=== PATIENT | male | born 1965 | race Caucasian/White ===

== ENCOUNTER 2016-06-11 13:08 | Inpatient (IN) | payer OTHER ==
[~2016-06-11] VITALS: Ht 188 cm; Wt 127.0 kg
[2016-06-11] MEDS ORDERED: METF1000 PO (13:46)
[2016-06-11] MEDS ORDERED: FENO200C6 PO (13:46)
--- NOTE | 2016-06-11 14:26 | DIAGNOSTIC IMAGING REPORT ---
LEFT ANKLE 3 VIEWS CLINICAL HISTORY: Left ankle injury. FINDINGS: 3 views of the left ankle are obtained. No prior studies are available for comparison at the time of dictation. The skeletal structures are well mineralized. There is a comminuted and distracted spiral fracture through the mid to distal tibial shaft. There is at least 7 mm of lateral distraction and 5 mm of anterior distraction of the distal fragments. The distal fibula appears intact. The ankle mortise is preserved. There is soft tissue edema present around the distal calf and the ankle. IMPRESSION: There is a comminuted and distracted spiral fracture through the mid to distal shaft of the left tibia as above. Electronically signed by: Irwin Abraham M.D. 06/11/2016 2:25 PM Dictated Date/Time: 06/11/2016 2:22 PM
--- NOTE | 2016-06-11 14:31 | DIAGNOSTIC IMAGING REPORT ---
LEFT TIBIA/FIBULA 2 VIEWS ROUTINE CLINICAL HISTORY: fall trauma. Pain. COMPARISON: None. DISCUSSION: Blank slightly distracted fracture of the mid to distal tibial shaft. Slight anterior angulation. Fracture proximal fibular head. Moderate soft tissue edema IMPRESSION: 1. Oblique mildly angled and distracted fracture mid to distal tibial shaft. 2. Nondisplaced fracture proximal fibula Electronically signed by: Primo Diallo M.D. 06/11/2016 2:30 PM Dictated Date/Time: 06/11/2016 2:29 PM
--- NOTE | 2016-06-11 15:44 | EMERGENCY ROOM VISIT NOTE ---
ED Visit Note First contact with patient: 13:21 CHIEF COMPLAINT: Left lower leg injury today HISTORY OF PRESENT ILLNESS: Patient is a 51-year-old white male brought to the emergency department by ambulance for evaluation of a left lower leg injury that occurred at home about 2 hours ago. Patient states that he stood up, and was walking when his left knee gave out on him, causing him to fall and roll his left ankle. He states that he felt and heard a popping sound, he describes it as sounding like a "baseball hitting off of the bat." He did not attempt to ambulate. He notes discomfort that is a 5/10. He reports significant neuropathy in the lower extremities. He denies any other injuries related to the fall. He has a history of a partial left great toe amputation due to osteomyelitis performed at [facility]. REVIEW OF SYSTEMS: Review of systems as per HPI. All other systems reviewed were negative. At least 6 systems reviewed. PMH: Electronic medical records are reviewed and summarized as above/below. See Problem List. SOCIAL HISTORY: Patient lives at home with his daughter. Smoker. Unemployed. PHYSICAL EXAM: Vital Signs: Reviewed Nurse's notes. CONSTITUTIONAL: Patient is a well appearing 51-year-old white male who is awake and alert and laying on the gurney in no acute distress. HEART: Regular rate and rhythm without murmurs, ectopy, gallops, or rubs. LUNGS: Clear to auscultation and breath sounds equal, no wheezes, rales, or rhonchi. MUSCULOSKELETAL: Examination of the left lower extremity show external rotation of the left lower leg. Skin is intact. He has tenderness and deformity palpable in the mid to distal tibia, over the tibial spine. There is no discomfort over the proximal fibular head. No pain over the medial or the lateral malleolus. The lower extremity is unstable. Postsurgical deformity noted at the left great toe. Distal pulses are easily palpable. He has diminished sensation over the plantar aspect of the left foot, can feel light touch over the dorsum of the foot and the lower left leg. EMERGENCY DEPARTMENT COURSE: The patient was seen and evaluated as above. He declined any medication needs in the emergency department. Left ankle and tib- fib x-rays were obtained. Findings are consistent with a oblique fracture through the mid to distal tibial shaft with associated fracture of the proximal fibular head. Consultation was placed with [facility], patient was reviewed with Freedom Del Cid PA-C and Dr. Marcus. He will be admitted to the hospital for surgical management. Please refer to their admission H&P for further information. The patient was placed in a long leg posterior and short leg sugar tong splint. He remained neurovascularly intact while in the emergency department. Patient's presentation is consistent with a fracture of the left tibial shaft. The injury is closed and there is no findings consistent with compartment syndrome. LEFT TIBIA/FIBULA 2 VIEWS ROUTINE CLINICAL HISTORY: fall trauma. Pain. COMPARISON: None. DISCUSSION: Blank slightly distracted fracture of the mid to distal tibial shaft. Slight anterior angulation. Fracture proximal fibular head. Moderate soft tissue edema IMPRESSION: 1. Oblique mildly angled and distracted fracture mid to distal tibial shaft. 2. Nondisplaced fracture proximal fibula LEFT ANKLE 3 VIEWS CLINICAL HISTORY: Left ankle injury. FINDINGS: 3 views of the left ankle are obtained. No prior studies are available for comparison at the time of dictation. The skeletal structures are well mineralized. There is a comminuted and distracted spiral fracture through the mid to distal tibial shaft. There is at least 7 mm of lateral distraction and 5 mm of anterior distraction of the distal fragments. The distal fibula appears intact. The ankle mortise is preserved. There is soft tissue edema present around the distal calf and the ankle. IMPRESSION: There is a comminuted and distracted spiral fracture through the mid to distal shaft of the left tibia as above. Problem List Medical Problems: (1) Depression Status: Chronic (2) Diabetes Status: Chronic (3) Diabetic peripheral neuropathy Status: Chronic (4) Dyslipidemia Status: Chronic (5) Hypertension Status: Chronic Surgical Problems: (1) Toe amputation status Status: Resolved Current/Historical Medications Scheduled Fenofibrate (Tricor), 200 MG PO DAILY Metformin Hcl (Glucophage), 1,000 MG PO BIDM Allergies Coded Allergies: No Known Allergies (Verified , *, 05/23/08) Vital Signs Date Time Temp Pulse Resp B/P Pulse Ox O2 Delivery O2 Flow Rate FiO2 06/11/16 16:30 95 16 121/83 95 Room Air 06/11/16 14:48 82 16 105/64 95 Room Air 06/11/16 13:41 88 17 115/80 94 Room Air 06/11/16 13:20 36.9 92 18 136/87 96 Room Air Laboratory Results 06/11/16 16:00 Test 06/11/16 16:00 Red Blood Count 5.44 M/uL (4.7-6.1) Mean Corpuscular Volume 80.0 fL (80-100) Mean Corpuscular Hemoglobin 28.9 pg (25-34) Mean Corpuscular Hemoglobin Concent 36.1 g/dl (32-36) RDW Standard Deviation 37.0 fL (36.4-46.3) RDW Coefficient of Variation 12.8 % (11.5-14.5) Mean Platelet Volume 10.8 fL (7.4-10.4) Prothrombin Time 9.9 SECONDS (9.0-12.0) Prothromb Time International Ratio 0.9 (0.9-1.1) Departure Information Impression Primary Impression: Fracture of tibial shaft, left, closed Additional Impression: Fracture of head of left fibula Dispostion Being Evaluated By Surgeon Gamaliel Bhatti M.D. (PCP) Patient Instructions [facility] Problem Qualifiers Primary Impression: Fracture of tibial shaft, left, closed Encounter type: initial encounter Fracture morphology: oblique Fracture alignment: displaced Qualified Codes: S82.232A - Displaced oblique fracture of shaft of left tibia, initial encounter for closed fracture Additional Impression: Fracture of head of left fibula Encounter type: initial encounter Fracture type: closed Qualified Codes: S82.832A - Other fracture of upper and lower end of left fibula, initial encounter for closed fracture
[2016-06-11] MEDS ORDERED: MoRPHine SULFATE 2 MG/ML CARP IV PRN (15:45)
[2016-06-11] MEDS ORDERED: DiphenhydrAMINE HCL 50 MG/ML VIAL IV PRN (15:45)
[2016-06-11] MEDS ORDERED: ONDANSETRON INJ 2 MG/ML 2 ML VIAL IV PRN (15:45)
[2016-06-11] MEDS ORDERED: MoRPHine SULFATE 4 MG/ML 1 ML CARP\\VIAL IV PRN (16:15)
[2016-06-11] MEDS ORDERED: MoRPHine SULFATE 10 MG/ML CARP/VIAL IV PRN (16:15)
[2016-06-11 16:26] LABS: HEMATOCRIT 43.5 % (42-52); MEAN CORPUSCULAR HEMOGLOBIN 28.9 pg (25-34); MEAN CORPUSCULAR HGB CONC 36.1 g/dl (32-36); MEAN PLATELET VOLUME 10.8 fL (7.4-10.4); PLATELET COUNT 211 K/uL (130-400); RED BLOOD COUNT 5.44 M/uL (4.7-6.1); WHITE BLOOD COUNT 7.87 K/uL (4.8-10.8)
[2016-06-11 16:30] VITALS: BP 114/74; PULSE 91; TEMP 37.1; O2SAT 93; BMI 35.9
--- NOTE | 2016-06-11 16:30 | HISTORY & PHYSICAL EXAMINATION ---
DATE OF ADMISSION: 06/11/2016 REASON FOR ADMISSION: Left tib-fib fracture. HISTORY OF PRESENT ILLNESS: The patient is a 51-year-old white male who states that he was just walking today and ended up slipping on the ice and fell down. He states that he crawled inside his house and tried walking on the leg again wher at that point, he had heard a loud crack and had immediate pain in his left lower extremity and was unable to ambulate. He came to the emergency room where he was seen by the staff. X-rays were taken and found that he had a proximal fibular fracture as well as a distal third tibia fracture. X-rays were reviewed by Dr. Marcus and it was felt that since the patient would not be a good candidate for doing this at a later date it was felt he should be admitted at this time. Posterior splint was applied by the Emergency Room and he is now being admitted for further orthopedic care. The patient denies any loss of consciousness during the fall. Denies hitting his head and had no shortness of breath or chest pain prior to or after the fall. PAST MEDICAL HISTORY: Diabetes mellitus, initially listed has type 2; however he is insulin-dependent at this point in time. He states that it is not well controlled. His daughter is present and she states that he is mostly taking short acting insulin (Humalog) and does not have any long-acting insulin (Levimir) and either due to lack of money on their part versus the father's inability to take his insulin at regular times. He has also history of pancreatitis, hypertriglyceridemia. He states he also has history of hypertension. He denies tuberculosis, hepatitis, COPD. PAST SURGICAL HISTORY: He has had partial amputation of his left great toe in the past. Otherwise, he states he has not had any surgeries in the past. FAMILY HISTORY: There is a strong history of heart disease and a brother of his just recently passed in the last year or so due to [place]. His mother has a history of diabetes mellitus. Mother also has a history of CAD I believe with multiple stenting. SOCIAL HISTORY: The patient is a smoker and states that he started smoking at the age of 14, however he has increased his amount of smoking over recent years and states now he does approximately 2-pack a day. He does not use alcohol and he is , which his in 2007 from cancer. He has 2 children. He is layed off currently. 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 MEDICATIONS: Tricor 200 mg p.o. daily, metformin 1000 mg p.o. b.i.d. Humalog insulin and Levemir insulin. Dosages unknown. ALLERGIES: NKDA. REVIEW OF SYSTEMS: The patient denies any recent fevers, chills, night sweats, unexplained weight loss or weight gain. No flu or cold-like symptoms. No increased cough or sputum production. No increased shortness of breath. He denies any shortness of breath on exertion or at rest. He denies hemoptysis. He denies any history of chest pain, chest pressure or irregular heartbeat. No recent abdominal pain. No unusual nausea, vomiting or diarrhea. No hematemesis or melena or hematochezia. No history of hematuria, pyuria, dysuria or renal calculi. No history of CVA or TIA. No history of seizure disorder. PHYSICAL EXAMINATION: VITAL SIGNS: Most recently show a pulse 82, respirations 16, BP 105/64, pulse ox is 95 on room air. GENERAL: The patient is a mildly obese white male who is alert and oriented x3 and in no acute distress, pleasant and cooperative. SKIN: Warm and dry. Turgor is good. HEAD, EYES, EARS, NOSE, AND THROAT: Head is normocephalic, atraumatic. There is no scleral icterus or injection. Nasal airway is patent. Oral mucosa is pink and moist. NECK: Supple and nontender. HEART: Regular rate and rhythm without murmurs, gallops or splits. LUNGS: CTA without rales, rhonchi or wheezes. ABDOMEN: Soft, obese and nontender. Bowel sounds are present x4. GENITALIA AND RECTAL: Not performed at this time. EXTREMITIES: On examination of the patient's left lower extremity. There is no open fracture noted of the left tibia. He has some mild tenderness over the fibular head on the lateral aspect of the knee; however, has no knee pain in general. Limited range of motion at this time of the left knee only because of his distal third fracture of the tibia. He has some pitting edema over the left lower extremity that is greater on the left than the right. Pulses are difficult to appreciate the dorsalis pedis at this time, but his foot is pink and warm to touch. His sensation is blunted and he states which is normal for him; however, he has good sensation in along the inner portion of the foot over the arch. Other than that over the plantar surface of the toes he has decreased sensation. Capillary refill is less than 2 seconds. Right lower extremity does show some mild edema compared to the left. He does have some multiple bruising noted over the left tibia. Upper extremities are essentially benign at this time. He has no pain in the shoulders, elbows or wrists and has good range of motion of all including hand and fingers. He denies any pain on palpation of his anterior chest. No pain in the neck on range of motion anterior to posterior and has good range of motion of his neck. Denies back pain at this time of the thoracic and lumbar spine. NEUROLOGICAL: Noted neuropathy of his feet at this time. Otherwise, cranial nerves II-XII are intact. DIAGNOSIS: Left proximal fibular head fracture with a left distal third tibia fracture. 2. DM Type 2 with Insulin use 3. Diabetic Neuropathy of the LE's 4. H/O Hypertriglyceridemia 5. H/O Pancreatitis 6. ? of HTN PLAN: The patient will be admitted under orthopedics and we will consult [facility] service and have their hospitalist see the patient for preoperative medical clearance and postoperative medical management. Plans will be for IM rodding of his left tibia fracture. He will be placed in a posterior splint and then the left lower extremity will be placed on 2 pillows to help decrease his swelling. As long as the patient is medically cleared for surgery, plans will be for IM nailing of the left tibia tomorrow. TRIP
[2016-06-11 16:33] LABS: INR 0.9 (0.9-1.1); PROTHROMBIN TIME (PATIENT) 9.9 SECONDS (9.0-12.0)
[2016-06-11] MEDS ORDERED: GLUCAGON FOR INJ 1 MG VIAL SQ PRN (16:45)
[2016-06-11] MEDS ORDERED: GLUCOSE 40% GEL 15 GM TUBE PO PRN (16:45)
[2016-06-11] MEDS ORDERED: DEXTROSE 50% 50 ML SYR IV PRN (16:45)
[2016-06-11] MEDS ORDERED: GLUCOSE 10 TABS/TUBE PO PRN (16:45)
--- NOTE | 2016-06-11 16:47 | DIAGNOSTIC IMAGING REPORT ---
CHEST 2 VIEWS ROUTINE CLINICAL HISTORY: Preoperative evaluation. COMPARISON STUDY: No previous studies for comparison. FINDINGS: Lung volumes are normal. Lungs are clear. There is no pneumothorax or pleural effusion. Cardiac size is normal. Mediastinal contours are normal. There is no evidence of pulmonary edema. IMPRESSION: No acute cardiopulmonary findings. Electronically signed by: Yordy Barron M.D. 06/11/2016 4:45 PM Dictated Date/Time: 06/11/2016 4:45 PM
[2016-06-11] MEDS ORDERED: INSULIN ASPART 100 UNITS/ML 3 ML PEN SC SCH (17:15)
[2016-06-11] MEDS ORDERED: LISI-729 PO (17:38)
[2016-06-11] MEDS ORDERED: CITA40TA4 PO (17:38)
[2016-06-11] MEDS ORDERED: INSU100I2 SQ (17:38)
[2016-06-11] MEDS ORDERED: LVMI SQ (17:38)
[2016-06-11] MEDS ORDERED: ATOR-24 PO (17:38)
[2016-06-11] MEDS ORDERED: INSULIN IV INFUSION PROTOCOL SCH (17:39)
--- NOTE | 2016-06-11 17:55 | Medical Consult ---
Consultation Date of Consultation: Jun 11, 2016. Attending Physician: Hunter Marcus D.O. Reason for Consultation: Pre Op Evaluation History of Present Illness 51 year old male who presented to the ER with left leg pain after a fall today. Patient reports he was outside and slipped on the ice. He reports he then crawled into the house and was able to get on the couch. He then tried to get up and his left knee gave out from underneath of him and he fell to the ground and hear a snap in his left lower leg with pain immediately following. Patient denies associated chest pain, shortness of breath, lightheadedness, dizziness, loss of coconsciousness, or striking his head with either fall. Patient was laid off from work a few months ago and lost health insurance and has not taken several of his medications or insulin in the past month. Patient reports he otherwise has been feeling well. No exertional chest pain or shortness of breath. He has been tolerating daily activities without any problem. He denies fever and chills. No abdominal pain, nausea, vomiting, or diarrhea. He denies urinary symptoms. He has chronic numbness to his BLLE from neuropathy. In the ER , patient was found to have an oblique mildly angled and distracted fracture mid to the left distal tibial shaft and nondisplaced fracture left proximal fibula. Past Medical/Surgical History Medical Problems: (1) Depression Status: Chronic (2) Diabetes Status: Chronic (3) Diabetic peripheral neuropathy Status: Chronic (4) Dyslipidemia Status: Chronic (5) Hypertension Status: Chronic Family History FH: CAD (coronary artery disease) MOTHER (stents in her 60s) BROTHER ( from [place] in his 40s) Social History Smoking Status: Current Every Day Smoker Alcohol Use: none Allergies Coded Allergies: No Known Allergies (Verified , *, 05/23/08) Home Medications Lipitor (Atorvastatin Calcium) 40 Mg Tab 1 Tab PO DAILY 30 Days not taking Humalog Kwikpen (Insulin Lispro (Human)) 100 Unit/Ml Inj 30 Units SQ TID not taking Levemir (Insulin Detemir) 100 Units/Ml Inj 70 Units SQ BID not taking Prinivil (Lisinopril) 5 Mg Tab 5 Mg PO DAILY not taking Citalopram Hydrobromide (Citalopram) 40 Mg Tab 1 Tab PO DAILY 90 Days not taking Glucophage (Metformin Hcl) 1,000 Mg Tab 1,000 Mg PO BIDM only taking HS Tricor (Fenofibrate) 200 Mg Cap 200 Mg PO DAILY Current Inpatient Medications Current Inpatient Medications Medications (Trade) Dose Ordered Sig/Chris Route Start Time Stop Time Status Last Admin Dose Admin Oxycodone/ Acetaminophen (Percocet 5-325mg Tab) `1-2 TABS FOR PAIN `1 TAB... Q4H PRN PO 06/11/16 15:45 06/25/16 15:44 Diphenhydramine HCl (Benadryl Inj) 25 mg Q8 PRN IV 06/11/16 15:45 07/11/16 15:44 Ondansetron HCl (Zofran Inj) 4 mg Q6H PRN IV 06/11/16 15:45 07/11/16 15:44 Morphine Sulfate (MoRPHine SULFATE INJ) 2 mg Q4HWA PRN IV 06/11/16 15:45 06/25/16 15:44 Insulin Aspart (novoLOG ASPART) SLIDING SCALE G... ACHS SC 06/11/16 17:15 07/11/16 17:14 Morphine Sulfate (MoRPHine SULFATE INJ) 4 mg Q4HWA PRN IV 06/11/16 16:15 06/25/16 16:14 Morphine Sulfate (MoRPHine SULFATE INJ) 6 mg Q4HWA PRN IV 06/11/16 16:15 06/25/16 16:14 Glucose (Glucose 40% Gel) 15-30 GRAMS 15 GRAMS... UD PRN PO 06/11/16 16:45 07/11/16 16:44 Glucose (Glucose Chew Tab) 4-8 Tablets 4 Tabl... UD PRN PO 06/11/16 16:45 07/11/16 16:44 Dextrose (Dextrose 50% 50ML Syringe) 25-50ML OF 50% DW IV FOR... UD PRN IV 06/11/16 16:45 07/11/16 16:44 Glucagon (Glucagon Inj) 1 mg UD PRN SQ 06/11/16 16:45 07/11/16 16:44 Insulin Human Regular (Insulin IV Infusion Protocol) 1 ea Q15M N/A 06/11/16 17:39 07/11/16 17:38 Insulin Aspart (novoLOG ASPART) SLIDING SCALE PCHS SC 06/11/16 18:30 07/11/16 18:29 UNV Miscellaneous (Insulin Protocol Hhs Goal Range) 1 ea ONE ONCE N/A 06/11/16 17:45 06/11/16 17:46 UNV Miscellaneous (Insulin Protocol Severe Stress) 1 ea ONE ONCE N/A 06/11/16 17:45 06/11/16 17:46 UNV Review of Systems 10 point review of systems was completed with the pertinent positives and negatives noted per the HPI Physical Exam Date Time Temp Pulse Resp B/P Pulse Ox O2 Delivery O2 Flow Rate FiO2 06/11/16 16:30 95 16 121/83 95 Room Air 06/11/16 14:48 82 16 105/64 95 Room Air 06/11/16 13:41 88 17 115/80 94 Room Air 06/11/16 13:20 36.9 92 18 136/87 96 Room Air General Appearance: no apparent distress Head: normocephalic Eyes: normal inspection ENT: hearing grossly normal Neck: supple, no JVD Respiratory/Chest: no respiratory distress, + wheezing (faint, scattered, expiratory), + pertinent finding (scattered coarse breath sounds) Cardiovascular: regular rate, rhythm, no edema, normal peripheral pulses Abdomen/GI: normal bowel sounds, non tender, soft Extremities/Musculoskelatal: + pertinent finding (LLE in splint, CSM checks intact) Neurologic/Psych: no motor/sensory deficits, alert, normal mood/affect, oriented x 3 Skin: normal color, warm/dry Laboratory Results Last 24 Hours Test 06/11/16 16:00 06/11/16 17:17 06/11/16 17:30 White Blood Count 7.87 K/uL Red Blood Count 5.44 M/uL Hemoglobin 15.7 g/dL Hematocrit 43.5 % Mean Corpuscular Volume 80.0 fL Mean Corpuscular Hemoglobin 28.9 pg Mean Corpuscular Hemoglobin Concent 36.1 g/dl RDW Standard Deviation 37.0 fL RDW Coefficient of Variation 12.8 % Platelet Count 211 K/uL Mean Platelet Volume 10.8 fL Prothrombin Time 9.9 SECONDS Prothromb Time International Ratio 0.9 Bedside Glucose 411 mg/dl Assessment & Plan LEFT TIBIA/FIBULA FRACTURE - admitted to med/surg under ortho service - fracture due to mechanical fall - for OR in AM for repair - pain control with bowel regimen - PT/OT when appropriate - pre op CXR clear, EKG does not show any changes; patient without reports of exertional chest pain or shortness of breath; can proceed to the OR and be considered low - moderate risk (HTN, poorly controlled DM, tobacco abuse) without further testing - blood sugar control for adequate healing DM, UNCONTROLLED - patient has not taken his insulin in one month due to lack of insurance - blood sugar 411; will start insulin gtt - PRP pending however do not suspect DKA - hgb a1c 11.2 08/2015 HTN - BP controlled - was on Lisinopril at home, likely for renal protection due to DM - will resume DYSLIPIDEMIA - resume fenofibrate and atorvastatin TOBACCO ABUSE - patient counseled regarding tobacco cessation DVT PROPHYLAXIS - deferred to ortho Thank you for this consultation. We will follow the patient with you during their hospital stay. You can reach a member of the [facility] 20/10 via pager @ . I have seen, examined and discussed this patient with Melissa Dumas and I agree with the above note. Medicine consulted for pre-op evaluation and post-op medical management. Patient with left tib/fib fracture with plans for OR tomorrow. Vitals stable. PE: General- awake; alert; NAD Eyes- EOMI; no scleral icterus Neck- no stridor; trachea midline Lungs- expiratory rubs Heart- RRR; no m/r/g Abdomen- soft; NTND; nBS Back- no gross abnormalities Extremities- left leg in cast; no c/c/e Neuro- no focal deficits Skin- no appreciable rash or bruises Labs, imaging and EKG reviewed. Pre-op evaluation: Patient denies chest pain or SOB. Able to climb a flight of stairs in the house. EKG with NSR. CXR negative. No further workup required prior to proceeding with surgery. Patient is low-moderate risk for a moderate risk procedure. Would ensure adequate pulmonary toilet mike-operatively. Type 2 DM: Uncontrolled. Patient has not been taking any insulin as he could not afford. Glycemic pharmacy consulted. Insulin drip started overnight to improve glucoses prior to surgery. Can likely transition to sq insulin by tomorrow. No e/o DKA. DM educator consulted. Will need professor of social work assistance with insulin and dm testing supplies prior to discharge. Nicotine patch started given significant tobacco use. Agree with remainder of note as outlined above. Patient will likely need medications on $4 formulary upon discharge.
[2016-06-11] MEDS ORDERED: HHS GOAL RANGE 250-350 mg/dl ONE (18:00)
[2016-06-11] MEDS ORDERED: PHARMACY GLYCEMIC MGMT CONSULT PRN (18:00)
[2016-06-11] MEDS ORDERED: SEVERE STRESS LEVEL ONE (18:00)
[2016-06-11] MEDS ORDERED: INSULIN HUMAN REGULAR IV BOLUS 5 UNIT in SYRINGE 0 ML IV SCH (18:00)
[2016-06-11 18:12] LABS: BUN/CREATININE RATIO 19.3 (10-20); CALCIUM 9.1 mg/dl (8.5-10.1); CREATININE 0.99 mg/dl (0.60-1.40); POTASSIUM 4.5 mmol/L (3.5-5.1)
--- NOTE | 2016-06-11 18:22 | Pharmacy Progress Note ---
Glycemic Control Intl Consult Date of Service Jun 11, 2016. Scope Glycemic Pharmacist consulted by CHRIS Lopez on 06/11/16 for glycemic control and to write orders per [facility] inpatient glycemic control protocol Objective Weight (Kilograms): 127.000 Accuchecks BSG (last 24hrs): Test 06/11/16 17:17 06/11/16 17:30 Bedside Glucose 411 mg/dl (70-99) Laboratory Data (last 24hrs) Test 06/11/16 16:00 06/11/16 17:30 White Blood Count 7.87 K/uL HbA1c Item Value Date Time Hemoglobin A1c 14.8 % H 05/24/08 0700 Recent Pertinent Medications Outpatient Anti-diabetic Regimen: * Patient noncompliant with insulin listed in med rec * Metformin 1000 mg PO BIDM--only takes HS * A1c = pending with am labs Risk Factors for Insulin Resistance: * Recent Surgery: planned for tomorrow * Diet: NPO at midnight Assessment & Plan ASSESSMENT: * 51 yo M admitted with L tib/fib fracture, found to have BSGs >400 mg/dL * Patient is known to have T2DM but is noncompliant with outpatient insulin regimen * Per his daughter, patient takes Humalog only - but not consistently, and has not taken levemir for a long period of time * This may be a cost issue, but she feels it is because he is unable to take multiple injections of insulin per day * Recommend CDE evaluation * Last A1c in records from 2008 indicative of grossly uncontrolled diabetes- obtain current A1c with am labs * In light of noncompliance and subsequent insulin resistance, initiate insulin drip to gain control for surgery in the AM * It is imperative for wound healing to have optimal glycemic control immediately before and after surgery * ADA & AACE recommend a goal blood sugar range 140-180 mg/dl for the majority of critically ill & non-critically ill patients. However, more stringent targets may be selected in individual cases. Maintain goal 150-250 mg/dL through tonight. Without A1c I am unsure of his estimated average blood glucose and do not want him to feel symptomatic going into surgery tomorrow. PLAN FOR INPATIENT GLYCEMIC CONTROL: * Starting IV insulin infusion per severe stress protocol * Goal Range 150 - 250 mg/dl * Holding outpatient oral diabetes medications * A1c on order with AM labs * Please note that the plan above was derived based on current level of insulin resistance and hospital stress. These recommendations are appropriate for inpatient admission only. Plan of care upon discharge will need to be reassessed to avoid potential outpatient hypo/hyperglycemia. Thank you.
[2016-06-11 18:56] LABS: BETA-HYDROXYBUTYRATE 18.3 mg/dL (0.2-2.81)
[2016-06-11 18:56] LABS: URINE APPEARANCE CLEAR (CLEAR); URINE BILIRUBIN NEG (NEG); URINE COLOR YELLOW; URINE NITRITE NEG (NEG); URINE SPECIFIC GRAVITY 1.037 (1.000-1.030); UROBILINOGEN NEG (NEG)
[2016-06-11 18:58] LABS: MANUAL MICROSCOPIC REQUIRED? NO; REVIEW REQ? NO
[2016-06-11] MEDS: INSULIN REGULAR 250 UNITS in SODIUM CHLORIDE 0.9% 250ML 250 ML IV SCH ×3 (19:28→23:03)
[2016-06-11] MEDS: INSULIN ASPART 100 UNITS/ML 3 ML PEN SC SCH ×2 (19:47→21:00)
[2016-06-11] MEDS: NICOTINE 21 MG/24 HR TDSY TD SCH (20:55)
[2016-06-11 22:46] VITALS: BP 113/76; PULSE 84; TEMP 36.8; O2SAT 94
[2016-06-12] VITALS (9 sets, daily range): BP systolic 99–131; BP diastolic 64–79; PULSE 73–92; TEMP 36.6–37; O2SAT 93–96; BMI 35.9
[2016-06-12] MEDS: INSULIN REGULAR 250 UNITS in SODIUM CHLORIDE 0.9% 250ML 250 ML IV SCH ×12 (00:15→23:09)
[2016-06-12 06:49] LABS: HEMATOCRIT 40.1 % (42-52); MEAN CELL VOLUME 82.5 fL (80-100); MEAN CORPUSCULAR HEMOGLOBIN 29.2 pg (25-34); MEAN CORPUSCULAR HGB CONC 35.4 g/dl (32-36); MEAN PLATELET VOLUME 10.7 fL (7.4-10.4); PLATELET COUNT 188 K/uL (130-400); RED BLOOD COUNT 4.86 M/uL (4.7-6.1); WHITE BLOOD COUNT 9.35 K/uL (4.8-10.8)
[2016-06-12 07:41] LABS: BUN/CREATININE RATIO 23.7 (10-20); CALCIUM 8.9 mg/dl (8.5-10.1); CREATININE 0.76 mg/dl (0.60-1.40); POTASSIUM 3.8 mmol/L (3.5-5.1)
--- NOTE | 2016-06-12 07:44 | Orthopedic Progress Note ---
Orthopedic Progress Note Date of Service Jun 12, 2016. Subjective Reports: feeling well, Denies: SOB, chest pain, light headedness, nausea / vomiting Additional Notes: No new complaints this AM. States pain is controlled. Has more pain when his leg is externally rotated so he's been keeping it out of that position. Objective splint C/D/I, capillary refill less than 2 sec., A&O x3, toes mobile Toes with normal neuropathy. No increase in numbness of foot. Moving the toes well. No increased pain with passive dorsiflexion of the great toe. Date Time Temp Pulse Resp B/P Pulse Ox O2 Delivery O2 Flow Rate FiO2 06/12/16 00:00 Room Air 06/11/16 22:46 36.8 84 16 113/76 94 Room Air 06/11/16 16:30 37.1 91 18 114/74 93 Room Air 06/11/16 16:30 37.1 91 18 114/74 93 Room Air 06/11/16 16:30 95 16 121/83 95 Room Air 06/11/16 14:48 82 16 105/64 95 Room Air 06/11/16 13:41 88 17 115/80 94 Room Air 06/11/16 13:20 36.9 92 18 136/87 96 Room Air Laboratory Results 24 Hours: Test 06/11/16 16:00 06/12/16 06:33 Hematocrit 43.5 % 40.1 % Hemoglobin 15.7 g/dL 14.2 g/dL Prothromb Time International Ratio 0.9 Prothrombin Time 9.9 SECONDS Assessment & Plan Assessment: Left Tib/Fib fracture (1) Depression Status: Chronic (2) Diabetes Status: Chronic (3) Diabetic peripheral neuropathy Status: Chronic (4) Dyslipidemia Status: Chronic (5) Hypertension S Plan: Planning for OR today for IM Nailing of Tibia Fx Inhouse Planning Pain Management: Percocet, Morphine DVT Prophylaxis: TEDs, SCDs
[2016-06-12 08:00] LABS: ESTIMATED AVERAGE GLUCOSE > 438 mg/dl
[2016-06-12] MEDS: ATORVASTATIN 40 MG TAB PO SCH (08:15)
[2016-06-12] MEDS: LISINOPRIL 5 MG TAB PO SCH (08:15)
[2016-06-12] MEDS: INSULIN ASPART 100 UNITS/ML 3 ML PEN SC SCH ×4 (08:16→21:00)
[2016-06-12] MEDS: NICOTINE 21 MG/24 HR TDSY TD SCH (08:40)
[2016-06-12] MEDS ORDERED: ROCURONIUM BROMIDE 10 MG/ML 5 ML VIAL ONE (08:50)
[2016-06-12] MEDS ORDERED: DEXAMETHASONE SOD INJ 4 MG/ML VIAL ONE (08:50)
[2016-06-12] MEDS ORDERED: GLYCOPYRROLATE INJ 0.2 MG/ML VIAL ONE (08:50)
[2016-06-12] MEDS ORDERED: FENTANYL CITRATE INJ 50 MCG/1 ML 2 ML VIAL ONE (08:50)
[2016-06-12] MEDS ORDERED: EpHEDrine SULFATE INJ 50 MG/ML AMP ONE ×2 (08:50→10:43)
[2016-06-12] MEDS ORDERED: MIDAZOLAM HCL 1 MG/ML 2ML VIAL ONE (08:50)
[2016-06-12] MEDS ORDERED: PHENYLEPHRINE HCL INJ 10 MG/ML VIAL ONE (08:50)
[2016-06-12] MEDS ORDERED: PROPOFOL IV EMULSION 10 MG/ML 20 ML VIAL IV ONE ×2 (08:50→10:40)
[2016-06-12] MEDS ORDERED: NEOSTIGMINE METHYLSULFATE 5 MG/5 ML SYR ONE (08:50)
[2016-06-12] MEDS ORDERED: LIDOCAINE HCL 2% 2 ML VIAL (20MG/ML) ONE (08:50)
[2016-06-12] MEDS ORDERED: SUCCINYLCHOLINE CHLORIDE 20 MG/ML 10 ML VIAL IV ONE (08:50)
[2016-06-12] MEDS ORDERED: ONDANSETRON INJ 2 MG/ML 2 ML VIAL ONE (08:50)
[2016-06-12] MEDS ORDERED: EpHEDrine SULFATE INJ 50 MG/ML AMP IV PRN (09:15)
[2016-06-12] MEDS ORDERED: ATROPINE SULFATE 0.1 MG/ML 5ML SYR IV PRN (09:15)
[2016-06-12] MEDS ORDERED: HYDROmorphone INJ 1 MG/ML SYR IV PRN (09:15)
[2016-06-12] MEDS ORDERED: ONDANSETRON INJ 2 MG/ML 2 ML VIAL IV PRN (09:15)
--- NOTE | 2016-06-12 09:22 | History & Physical Bridge Note ---
H&P Re-Evaluation Bridge Note: I have examined the patient, reviewed the History & Physical and in the interval since the performance of the History & Physical I have noted the following changes of clinical significance: No changes noted
[2016-06-12] MEDS ORDERED: CEFAZOLIN IV 2,000 MG/60 ML D5W IV ONE (09:26)
[2016-06-12] MEDS ORDERED: BUPIVACAINE 0.5 % 5 MG/1 ML MPF 30ML VIAL ONE (10:01)
[2016-06-12] MEDS ORDERED: ALBUTEROL HFA INHALER 8.5 GM INH ONE (10:36)
--- NOTE | 2016-06-12 11:31 | [facility] Post Operative Brief Note ---
Immediate Operative Summary Operative Date Jun 12, 2016. Pre-Operative Diagnosis Left tibia fracture Post-Operative Diagnosis Left tibia fracture Procedure(s) Performed Left intramedullary joya tibia fracture Surgeon Dr. Escalera Loading And Unloading Supervisor Surgeon(s) Freedom Del Cid PA-C Estimated Blood Loss 50cc Findings tibia fx Specimens none Disposition Recovery Room / PACU
--- NOTE | 2016-06-12 11:59 | OPERATIVE REPORT ---
DATE OF OPERATION: 06/12/2016 PREOPERATIVE DIAGNOSIS: Tibia fracture, left leg. POSTOPERATIVE DIAGNOSIS: Tibia fracture, left leg. PROCEDURE: Closed locked nailing tibia fracture, left leg. SURGEON: Dr. Escalera. ELECTRONIC SYSTEMS SECURITY ASSESSMENT: GABBI López. ANESTHESIA: General. COMPLICATIONS: None. DESCRIPTION OF PROCEDURE: Following induction of adequate general anesthesia, the patient's left leg was prepped and draped in usual sterile manner. A tourniquet was placed but it was not inflated. The longitudinal incision made over the patellar tendon. Subcutaneous tissue was bluntly dissected. Electrocautery was used for hemostasis. Median parapatellar incision was used to expose the proximal tibia where a drill-tip guidewire was placed at the appropriate position in both AP and lateral planes. This was overdrilled using a canal drill and a beaded-tipped guidewire was passed traversing the fracture site. Reamings were carried up to a size 11.5 and a 10 x 360 mm tibial nail was impacted into position. Proximal locking using the static hole and 1 dynamic hole was utilized proximally after removing the beaded-tipped guidewire. Distal interlocking was carried out using a single AP and a single medial to lateral screw. The wound was irrigated and closed using 2-0 Dexon and deejay. Sterile dressing of Adaptic, 4x4's, sterile Webril and a double-length Socrates was applied. The patient tolerated the procedure well. I attest to the content of the Intraoperative Record and any orders documented therein. Any exceptio ns are noted below.
[2016-06-12] MEDS: FENTANYL CITRATE INJ 50 MCG/1 ML 2 ML VIAL IV PRN ×4 (12:00→12:15)
--- NOTE | 2016-06-12 12:55 | DIAGNOSTIC IMAGING REPORT ---
LEFT TIBIA/FIBULA 2 VIEWS ROUTINE CLINICAL HISTORY: ORIF LT IM TONIE postoperative evaluation COMPARISON: None. DISCUSSION: Evidence for placement evidence of medullary tonie traversing oblique fracture of the distal fibula shaft. Mild angulation of the fracture site is present although bone bony apposition is considered generally good There is no evidence for soft tissue swelling. IMPRESSION: Interval placement of an intramedullary tonie traversing the oblique fracture of the mid/distal shaft of the tibia Electronically signed by: Primo Diallo M.D. 06/12/2016 12:54 PM Dictated Date/Time: 06/12/2016 12:53 PM
--- NOTE | 2016-06-12 12:57 | Anesthesiology Progress Note ---
Anesthesia Post Op Note Date & Time Jun 12, 2016 at 12:56 Vital Signs Pain Intensity: 1 Vital Signs Past 12 Hours Date Time Temp Pulse Resp B/P Pulse Ox O2 Delivery O2 Flow Rate FiO2 06/12/16 12:29 36.5 87 19 111/80 95 Nasal Cannula 3 06/12/16 12:11 110/69 06/12/16 12:10 87 18 06/12/16 12:10 87 18 100 06/12/16 12:06 119/73 06/12/16 12:05 88 18 06/12/16 12:05 88 18 87 06/12/16 12:01 128/77 06/12/16 12:00 85 22 98 06/12/16 12:00 85 22 06/12/16 11:59 86 18 98 06/12/16 11:59 88 18 06/12/16 11:56 125/81 06/12/16 11:54 85 16 06/12/16 11:54 85 16 97 06/12/16 11:51 124/74 06/12/16 11:50 124/81 06/12/16 11:49 88 06/12/16 11:49 36.7 86 16 124/81 91 Mask 10 06/12/16 11:49 88 97 06/12/16 07:35 94 Room Air 06/12/16 06:55 36.7 73 16 99/65 94 Room Air Notes Mental Status: alert / awake / arousable, participated in evaluation Pt Amnestic to Procedure: Yes Nausea / Vomiting: adequately controlled Pain: adequately controlled Airway Patency, RR, SpO2: stable & adequate BP & HR: stable & adequate Hydration State: stable & adequate Anesthetic Complications: no major complications apparent
[2016-06-12 13:40] LABS: HA1C FLAG Normal (Normal)
--- NOTE | 2016-06-12 16:51 | Pharmacy Progress Note ---
Glycemic Control: Progress Nt Date of Service Jun 12, 2016. Scope Glycemic Pharmacist consulted by CHRIS Borden on 06/11/16 for glycemic control and to write orders per [facility] inpatient glycemic control protocol. Objective Accuchecks BSG (last 24hrs): Test 06/11/16 17:17 06/11/16 17:30 06/11/16 20:26 06/11/16 21:29 Bedside Glucose 411 mg/dl (70-99) 326 mg/dl (70-99) 247 mg/dl (70-99) Random Glucose 418 mg/dl (70-99) Test 06/11/16 22:30 06/11/16 23:01 06/12/16 00:03 06/12/16 01:01 Bedside Glucose 167 mg/dl (70-99) 154 mg/dl (70-99) 128 mg/dl (70-99) 108 mg/dl (70-99) Test 06/12/16 01:30 06/12/16 01:45 06/12/16 02:00 06/12/16 02:15 Bedside Glucose 132 mg/dl (70-99) 114 mg/dl (70-99) 123 mg/dl (70-99) 134 mg/dl (70-99) Test 06/12/16 02:31 06/12/16 02:45 06/12/16 03:04 06/12/16 04:09 Bedside Glucose 146 mg/dl (70-99) 142 mg/dl (70-99) 155 mg/dl (70-99) 167 mg/dl (70-99) Test 06/12/16 05:08 06/12/16 06:09 06/12/16 06:33 06/12/16 08:16 Bedside Glucose 183 mg/dl (70-99) 178 mg/dl (70-99) 212 mg/dl (70-99) Random Glucose 190 mg/dl (70-99) Test 06/12/16 09:15 06/12/16 10:41 06/12/16 11:54 06/12/16 13:12 Bedside Glucose 223 mg/dl (70-99) 239 mg/dl (70-99) 205 mg/dl (70-99) 248 mg/dl (70-99) Test 06/12/16 15:02 06/12/16 16:01 Bedside Glucose 310 mg/dl (70-99) 311 mg/dl (70-99) Laboratory Data (last 24hrs) Test 06/11/16 17:30 06/12/16 06:33 Anion Gap 9.0 mmol/L 6.0 mmol/L BUN/Creatinine Ratio 19.3 23.7 Blood Urea Nitrogen 19 mg/dl 18 mg/dl Creatinine 0.99 mg/dl 0.76 mg/dl Potassium Level 4.5 mmol/L 3.8 mmol/L Sodium Level 133 mmol/L 137 mmol/L Hemoglobin A1c > 16.9 % White Blood Count 9.35 K/uL HbA1c: Test 06/12/16 06:33 Hemoglobin A1c > 16.9 % (4.5-5.6) H Recent Pertinent Medications Outpatient Anti-diabetic Regimen: * Noncompliant with meds for several months, previous order was Levemir 80 units bid, Humalog 30 units ac, Metformin 1 Gm bid * A1c = 16.9 % 06/12/16 The patient is currently receiving: * Basal insulin: regular insulin 1 unit/ml in NSS, rate titrated per insulin infusion rate adjustment calculator * Correctional Insulin: regular insulin as above * Prandial insulin: Per carb ratio determined by insulin infusion calculator Risk Factors for Insulin Resistance: * Steroids: dexamethasone 4 mg given in OR @ 0850 * Recent Surgery: OR today, IM nailing of L tib/fib fracture * Diet: npo, advancing to type 2 diabetic Assessment & Plan ASSESSMENT: * ADA & AACE recommend a goal blood sugar range 140-180 mg/dl for the majority of critically ill & non-critically ill patients. However, more stringent targets may be selected in individual cases. * 51 yo type 2 uncontrolled diabetic, now S/P repair leg fracture. BSG's had come down nicely with the insulin drip until this morning, but are rising again in response to stress of surgery and steroid given in OR. Effect of dexamethasone may persist for 48-72 hr. * To try to determine actual insulin needs, will add weight-based basal Levemir and continue insulin drip until morning (unless titrated off by insulin infusion calculator.) We will try to transition to basal/bolus, and patient may take the insulin pens home. In case patient is not able to obtain insurance coverage, we will calculate a comparable dose of Novolin 70/30 which is more affordable. Will reassess in am. PLAN FOR INPATIENT GLYCEMIC CONTROL: * Continuing IV insulin infusion per severe stress protocol at least until the morning (unless titrated off by insulin rate adjustment calculator) * Goal Range 140 - 180 mg/dl * In the critical care setting, continuous IV insulin infusion has been shown to be the best method for achieving glycemic targets. * Holding outpatient oral diabetes medications * Basal insulin with Levemir 20 units SQ BID * Continuing correctional/carb insulin per insulin drip protocol for today * Starting in am, Correctional Insulin with NOVOLOG per scale ACHS or Q6hrs while NPO * Goal Range: Low 140 mg/dL - High 180 mg/dL * Correction Factor: 20 mg/dL/unit * Nutritional / Prandial insulin per carb ratio of 1 unit per 7 grams CHO consumed RECOMMENDATIONS FOR DISCHARGE: Will determine when we have more data on insulin needs. * Please note that the plan above was derived based on current level of insulin resistance and hospital stress. These recommendations are appropriate for inpatient admission only. Plan of care upon discharge will need to be reassessed to avoid potential outpatient hypo/hyperglycemia. Thank you.
--- NOTE | 2016-06-12 16:53 | Progress Note ---
Internal Med Progress Note Date of Service: Jun 12, 2016. Provider Documentation: SUBJECTIVE: s/p surgery for left tibia/fibula surgery pain is under control denies chest pain or sob no nausea afebrile OBJECTIVE: Vital Signs-as noted below Exam: General-alert and oriented. Not in distress ENT-normal hearing Neck-no neck masses Lungs-cta b/l no wheezing no crackles Heart-s1 and s2 heard, regular rate and rhythm no murmurs Abdomen-soft bowel sounds present non tender no distension Extremities-no edema s/p left tibia/fibula surgery-in dressing Neuro-alert and awake moves extremities Lab data as noted below. ASSESSMENT & PLAN: LEFT TIBIA/FIBULA FRACTURE fracture due to mechanical fall s/p repair pain control pt/ot as per ortho DM, UNCONTROLLED patient has not taken his insulin in one month due to lack of insurance hba1c 16 diabetic teaching currently on insulin drip and iss appreciate pharmacy consult will monitor HTN on lisinopril will monitor. DYSLIPIDEMIA on fenofibrate and atorvastatin TOBACCO ABUSE counseled regarding tobacco cessation DVT PROPHYLAXIS deferred to ortho DISPOSITION as per ortho Vital Signs: Date Time Temp Pulse Resp B/P Pulse Ox O2 Delivery O2 Flow Rate FiO2 06/12/16 16:03 36.9 90 18 115/74 95 Room Air 06/12/16 15:06 36.6 92 18 105/68 94 Nasal Cannula 2.0 06/12/16 14:00 89 18 117/70 94 06/12/16 13:28 87 18 131/79 95 06/12/16 13:00 95 Nasal Cannula 2.0 06/12/16 13:00 36.7 87 16 118/73 95 Nasal Cannula 2.0 06/12/16 13:00 95 Nasal Cannula 2.0 06/12/16 12:29 36.5 87 19 111/80 95 Nasal Cannula 3 06/12/16 12:11 110/69 06/12/16 12:10 87 18 06/12/16 12:10 87 18 100 06/12/16 12:06 119/73 06/12/16 12:05 88 18 06/12/16 12:05 88 18 87 06/12/16 12:01 128/77 06/12/16 12:00 85 22 98 06/12/16 12:00 85 22 06/12/16 11:59 86 18 98 06/12/16 11:59 88 18 06/12/16 11:56 125/81 06/12/16 11:54 85 16 06/12/16 11:54 85 16 97 06/12/16 11:51 124/74 06/12/16 11:50 124/81 06/12/16 11:49 88 06/12/16 11:49 36.7 86 16 124/81 91 Mask 10 06/12/16 11:49 88 97 06/12/16 07:35 94 Room Air 06/12/16 06:55 36.7 73 16 99/65 94 Room Air 06/12/16 00:00 Room Air 06/11/16 22:46 36.8 84 16 113/76 94 Room Air Lab Results: Results Past 24 Hours Test 06/11/16 17:17 06/11/16 17:30 06/11/16 18:35 06/11/16 20:26 Range/Units Bedside Glucose 411 326 70-99 mg/dl Sodium Level 133 136-145 mmol/L Potassium Level 4.5 3.5-5.1 mmol/L Chloride Level 96 98-107 mmol/L Carbon Dioxide Level 28 21-32 mmol/L Anion Gap 9.0 3-11 mmol/L Blood Urea Nitrogen 19 7-18 mg/dl Creatinine 0.99 0.60-1.40 mg/dl Est Creatinine Clear Calc Drug Dose 125.0 ml/min Estimated GFR () 101.8 Estimated GFR (Non- 87.8 BUN/Creatinine Ratio 19.3 10-20 Random Glucose 418 70-99 mg/dl Calcium Level 9.1 8.5-10.1 mg/dl Beta-Hydroxybutyric Acid 18.30 0.2-2.81 mg/dL Urine Color YELLOW Urine Appearance CLEAR CLEAR Urine pH 5.0 4.5-7.5 Urine Specific [place] 1.037 1.000-1.030 Urine Protein NEG NEG Urine Glucose (UA) 3+ NEG Urine Ketones 1+ NEG Urine Occult Blood NEG NEG Urine Nitrite NEG NEG Urine Bilirubin NEG NEG Urine Urobilinogen NEG NEG Urine Leukocyte Esterase NEG NEG Test 06/11/16 21:29 06/11/16 22:30 06/11/16 23:01 06/12/16 00:03 Range/Units Bedside Glucose 247 167 154 128 70-99 mg/dl Test 06/12/16 01:01 06/12/16 01:30 06/12/16 01:45 06/12/16 02:00 Range/Units Bedside Glucose 108 132 114 123 70-99 mg/dl Test 06/12/16 02:15 06/12/16 02:31 06/12/16 02:45 06/12/16 03:04 Range/Units Bedside Glucose 134 146 142 155 70-99 mg/dl Test 06/12/16 04:09 06/12/16 05:08 06/12/16 06:09 06/12/16 06:33 Range/Units Bedside Glucose 167 183 178 70-99 mg/dl White Blood Count 9.35 4.8-10.8 K/uL Red Blood Count 4.86 4.7-6.1 M/uL Hemoglobin 14.2 14.0-18.0 g/dL Hematocrit 40.1 42-52 % Mean Corpuscular Volume 82.5 80-100 fL Mean Corpuscular Hemoglobin 29.2 25-34 pg Mean Corpuscular Hemoglobin Concent 35.4 32-36 g/dl RDW Standard Deviation 39.0 36.4-46.3 fL RDW Coefficient of Variation 12.9 11.5-14.5 % Platelet Count 188 130-400 K/uL Mean Platelet Volume 10.7 7.4-10.4 fL Sodium Level 137 136-145 mmol/L Potassium Level 3.8 3.5-5.1 mmol/L Chloride Level 101 98-107 mmol/L Carbon Dioxide Level 30 21-32 mmol/L Anion Gap 6.0 3-11 mmol/L Blood Urea Nitrogen 18 7-18 mg/dl Creatinine 0.76 0.60-1.40 mg/dl Est Creatinine Clear Calc Drug Dose 162.9 ml/min Estimated GFR () 122.4 Estimated GFR (Non- 105.6 BUN/Creatinine Ratio 23.7 10-20 Random Glucose 190 70-99 mg/dl Estimated Average Glucose > 438 mg/dl Hemoglobin A1c > 16.9 4.5-5.6 % Calcium Level 8.9 8.5-10.1 mg/dl Test 06/12/16 08:16 06/12/16 09:15 06/12/16 10:41 06/12/16 11:54 Range/Units Bedside Glucose 212 223 239 205 70-99 mg/dl Test 06/12/16 13:12 06/12/16 15:02 06/12/16 16:01 Range/Units Bedside Glucose 248 310 311 70-99 mg/dl
[2016-06-12] MEDS: OXYCODONE/ACETAMINOPHEN 5-325 TAB PO PRN ×2 (17:14→23:45)
[2016-06-12] MEDS ORDERED: INSULIN DETEMIR FLEXPEN/FLEX TOUCH 100 UNITS/ML 3ML SC SCH (21:00)
[2016-06-13] VITALS (7 sets, daily range): BP systolic 92–120; BP diastolic 57–90; PULSE 80–98; TEMP 36.7–37.1; O2SAT 91–96; Ht 188 cm; Wt 127.0 kg
[2016-06-13] MEDS: INSULIN REGULAR 250 UNITS in SODIUM CHLORIDE 0.9% 250ML 250 ML IV SCH ×2 (00:06→05:07)
--- NOTE | 2016-06-13 07:57 | Orthopedic Progress Note ---
Orthopedic Progress Note Date of Service Jun 13, 2016. Subjective Post OP Day: 1 Reports: feeling well Objective N/V intact, splint C/D/I, toes mobile Date Time Temp Pulse Resp B/P Pulse Ox O2 Delivery O2 Flow Rate FiO2 06/13/16 03:15 36.7 85 16 118/75 94 Room Air 06/12/16 23:27 36.6 87 16 114/73 96 Room Air 06/12/16 23:00 Room Air 06/12/16 19:18 37.0 92 17 100/64 93 Room Air 06/12/16 16:03 36.9 90 18 115/74 95 Room Air 06/12/16 16:00 Room Air 06/12/16 15:06 36.6 92 18 105/68 94 Nasal Cannula 2.0 06/12/16 14:00 89 18 117/70 94 06/12/16 13:28 87 18 131/79 95 06/12/16 13:00 95 Nasal Cannula 2.0 06/12/16 13:00 36.7 87 16 118/73 95 Nasal Cannula 2.0 06/12/16 13:00 95 Nasal Cannula 2.0 06/12/16 12:29 36.5 87 19 111/80 95 Nasal Cannula 3 06/12/16 12:11 110/69 06/12/16 12:10 87 18 06/12/16 12:10 87 18 100 06/12/16 12:06 119/73 06/12/16 12:05 88 18 06/12/16 12:05 88 18 87 06/12/16 12:01 128/77 06/12/16 12:00 85 22 98 06/12/16 12:00 85 22 06/12/16 11:59 86 18 98 06/12/16 11:59 88 18 06/12/16 11:56 125/81 06/12/16 11:54 85 16 06/12/16 11:54 85 16 97 06/12/16 11:51 124/74 06/12/16 11:50 124/81 06/12/16 11:49 88 06/12/16 11:49 36.7 86 16 124/81 91 Mask 10 06/12/16 11:49 88 97 Assessment & Plan Assessment: 51 yo male stable POD #1 s/p IM nail left tibia Plan: 1. Med management 2. DVT prophylaxis- ASA 3. PT/OT- gait training 4. D/C planning- probable d/c home tomorrow Inhouse Planning Pain Management: Percocet, Morphine DVT Prophylaxis: TEDs, SCDs
--- NOTE | 2016-06-13 08:02 | Discharge Instructions ---
Discharge Instructions Date of Service Jun 13, 2016. Admission Reason for Admission: Tibia/Fibula Fracture, Shaft Discharge Discharge Diagnosis / Problem: Left tibia fracture Discharge Goals Goal(s): Decrease discomfort, Improve function Activity Recommendations Activity Limitations: as noted below Weightbearing Status: Left weightbearing (as tolerated) . Instructions / Follow-Up Instructions / Follow-Up WBAT left lower extremity with walker/crutches. Maintain splint until follow- up with MD. Keep splint clean and dry. Frequent ice and elevation left lower leg. Mobilize toes and knee range of motion as tolerated. Refrain from tobacco use. Current Hospital Diet Patient's current hospital diet: Diabetes Type 2 Diet Discharge Diet Recommended Diet: Diabetes Type 2 Diet Procedures Procedures Performed: Left intramedullary joya tibia fracture Pending Studies Studies pending at discharge: no Laboratory Results Hemoglobin A1c Test 06/12/16 06:33 Range/Units Estimated Average Glucose > 438 mg/dl Hemoglobin A1c > 16.9 H 4.5-5.6 % Medical Emergencies . Who to Call and When: Medical Emergencies: If at any time you feel your situation is an emergency, please call 911 immediately. . Non-Emergent Contact Non-Emergency issues call your: Surgeon Call Non-Emergent contact if: temperature is above 101.5, your pain is not controlled, wound has increased drainage, wound has increased redness . "Provider Documentation" section prepared by Nicanor Montgomery PA-C. VTE Core Measure Inpt VTE Proph given/why not?: Other Anticoagulation (ASA 325mg daily), T.E.D. Stockings, SCD's [place] Drug Monitoring Program Search Results: patient reviewed within database, no issues identified
[2016-06-13] MEDS: NICOTINE 21 MG/24 HR TDSY TD SCH (08:49)
[2016-06-13] MEDS: ASPIRIN 325 MG ECTAB PO SCH (08:49)
[2016-06-13] MEDS: ATORVASTATIN 40 MG TAB PO SCH (08:49)
[2016-06-13] MEDS: LISINOPRIL 5 MG TAB PO SCH (08:54)
[2016-06-13] MEDS: INSULIN ASPART 100 UNITS/ML 3 ML PEN SC SCH ×4 (08:59→20:51)
[2016-06-13] MEDS ORDERED: INSULIN DETEMIR FLEXPEN/FLEX TOUCH 100 UNITS/ML 3ML SC SCH (09:00)
[2016-06-13 09:07] LABS: BUN/CREATININE RATIO 16.8 (10-20); CREATININE 0.72 mg/dl (0.60-1.40); POTASSIUM 4.1 mmol/L (3.5-5.1)
--- NOTE | 2016-06-13 09:55 | DIAGNOSTIC IMAGING REPORT ---
LEFT TIBIA AND FIBULA 2 VIEWS CLINICAL HISTORY: Postoperative examination. FINDINGS: AP and lateral portable views of the left tibia and fibula are compared to study dated 06/11/2016. The skeletal structures are well mineralized. An intertrochanteric nail transfixes a spiral fracture through the distal left tibial diaphysis. There has been significant improvement in alignment with approximately 5.5 mm of persistent lateral offset of the distal fragments. 2 cortical-lag screws transfix the proximal end of the nail and a single cortical lag screw transfixes the distal end of the nail. A minimally distracted fracture of the fibular head is again noted. Soft tissue edema is present throughout the calf. The knee and ankle joints are grossly maintained. Skin clips project over the knee. Atherosclerotic calcification is noted in the regional arteries. IMPRESSION: 1. There are postoperative changes from intramedullary nail placement in the left tibia transfixing a distal tibial fracture as detailed above. 2. A minimally distracted fracture of the fibular head persists. 3. Diffuse soft tissue edema is present in the left lower extremity. Electronically signed by: Irwin Abraham M.D. 06/13/2016 9:54 AM Dictated Date/Time: 06/13/2016 9:52 AM
[2016-06-13] MEDS: OXYCODONE/ACETAMINOPHEN 5-325 TAB PO PRN ×2 (10:26→20:52)
--- NOTE | 2016-06-13 10:55 | Pharmacy Progress Note ---
Glycemic: Assessment & Plan Date of Service Jun 13, 2016. Assessment & Plan ASSESSMENT: * Pt initiated on IV insulin infucion on 06/11 for severe hyperglycemia secondary to outpatient non-compliance with antidiabetic regimen * Pt with slow transition to SQ basal bolus insulin regimen - initiated last evening. * Pt was given Levemir 20 units last evening with IV insulin infusion to continue. Infusion was to be held per calculator when BSG in goal range (i.e turn itself off once Levemir dose kicked in and took over basal needs overnight) * Initial dose of Levemir given was most likely too conservative - infusion remained on until this morning. Pt received an additional 27.6 units of insulin overnight from the IV insulin infusion. PLAN: Increase SQ basal bolus insulin regimen * Increase basal insulin with Levemir 30 units SQ BID * Tighten prandial/correctional coverage with Novolog per scale ACHS * Goal Range: Low 140 mg/dL - High 180 mg/dL [will keep goal range slightly elevated based on high A1c , pt may feel hypo at otherwise normal BSGs] * Correction Factor: 15 mg/dL/unit * Per carb ratio of 1 unit per 4 grams CHO consumed LOOKING AHEAD TO DISCHARGE: * Patient will need simple and inexpensive antidiabetic regimen for outpatient use * Recommend [facility] ReliOn 70/30 insulin with breakfast/supper meals at a total daily dose of ~60 units/day * [facility] ReliOn 70/30 insulin 30 units twice daily with breakfast/supper * Dosing to be further titrated based on BSG trends by PCP * Recommend patient SMBG 2x/day prior to breakfast & supper * Pt will need Rx for insulin syringes and test strips * Patient may need a new meter if batteries are unable to be replaced. * Please note that the plan above was derived based on current level of insulin resistance and hospital stress. These recommendations are appropriate for inpatient admission only. Plan of care upon discharge will need to be reassessed to avoid potential outpatient hypo/hyperglycemia.
--- NOTE | 2016-06-13 18:06 | Progress Note ---
Internal Med Progress Note Date of Service: Jun 13, 2016. Provider Documentation: SUBJECTIVE: s/p surgery for left tibia/fibula surgery pain is ok sitting on the chair comfortably denies chest pain or sob eating ok OBJECTIVE: Vital Signs-as noted below Exam: General-alert and oriented. Not in distress ENT-normal hearing Neck-no neck masses Lungs-cta b/l no wheezing no crackles Heart-s1 and s2 heard, regular rate and rhythm no murmurs Abdomen-soft bowel sounds present non tender no distension Extremities-no edema s/p left tibia/fibula surgery-in dressing Neuro-alert and awake moves extremities Lab data as noted below. ASSESSMENT & PLAN: LEFT TIBIA/FIBULA FRACTURE fracture due to mechanical fall s/p repair pain control pt/ot as per ortho DM, UNCONTROLLED patient has not taken his insulin in one month due to lack of insurance hba1c 16 diabetic teaching currently on insulin drip and iss appreciate pharmacy consult plan to d/c on insulin will monitor HTN on lisinopril stable will monitor. DYSLIPIDEMIA on fenofibrate and atorvastatin TOBACCO ABUSE counseled regarding tobacco cessation DVT PROPHYLAXIS deferred to ortho DISPOSITION as per ortho Vital Signs: Date Time Temp Pulse Resp B/P Pulse Ox O2 Delivery O2 Flow Rate FiO2 06/13/16 15:31 37.0 83 17 105/65 95 Room Air 06/13/16 11:40 37.1 98 14 120/70 95 Room Air 06/13/16 10:50 96 Room Air 06/13/16 08:53 98 116/72 06/13/16 08:05 36.9 96 19 120/90 96 Room Air 06/13/16 07:15 Room Air 06/13/16 03:15 36.7 85 16 118/75 94 Room Air 06/12/16 23:27 36.6 87 16 114/73 96 Room Air 06/12/16 23:00 Room Air 06/12/16 19:18 37.0 92 17 100/64 93 Room Air Lab Results: Results Past 24 Hours Test 06/12/16 19:03 06/12/16 20:00 06/12/16 20:59 06/12/16 22:01 Range/Units Bedside Glucose 319 294 246 176 70-99 mg/dl Test 06/12/16 22:39 06/12/16 23:00 06/13/16 00:00 06/13/16 00:59 Range/Units Bedside Glucose 191 217 177 159 70-99 mg/dl Test 06/13/16 02:01 06/13/16 03:00 06/13/16 05:03 06/13/16 06:00 Range/Units Bedside Glucose 158 147 112 111 70-99 mg/dl Test 06/13/16 06:20 06/13/16 06:32 06/13/16 06:44 06/13/16 07:02 Range/Units Bedside Glucose 105 116 134 148 70-99 mg/dl Test 06/13/16 07:59 06/13/16 08:41 06/13/16 12:01 06/13/16 16:21 Range/Units Bedside Glucose 209 286 131 70-99 mg/dl Sodium Level 137 136-145 mmol/L Potassium Level 4.1 3.5-5.1 mmol/L Chloride Level 99 98-107 mmol/L Carbon Dioxide Level 28 21-32 mmol/L Anion Gap 10.0 3-11 mmol/L Blood Urea Nitrogen 12 7-18 mg/dl Creatinine 0.72 0.60-1.40 mg/dl Est Creatinine Clear Calc Drug Dose 171.9 ml/min Estimated GFR () 125.2 Estimated GFR (Non- 108.0 BUN/Creatinine Ratio 16.8 10-20 Random Glucose 227 70-99 mg/dl Calcium Level 9.0 8.5-10.1 mg/dl
[2016-06-13] MEDS: INSULIN DETEMIR FLEXPEN/FLEX TOUCH 100 UNITS/ML 3ML SC SCH (20:53)
[2016-06-14] MEDS: INSULIN ASPART 100 UNITS/ML 3 ML PEN SC SCH ×4 (04:00→12:59)
[2016-06-14 07:10] VITALS: BP 113/71; PULSE 87; TEMP 36.7; O2SAT 96
[2016-06-14 07:30] VITALS: O2SAT 96
[2016-06-14] MEDS: ASPIRIN 325 MG ECTAB PO SCH (08:48)
[2016-06-14] MEDS: ATORVASTATIN 40 MG TAB PO SCH (08:48)
[2016-06-14] MEDS: NICOTINE 21 MG/24 HR TDSY TD SCH (08:49)
[2016-06-14] MEDS: INSULIN DETEMIR FLEXPEN/FLEX TOUCH 100 UNITS/ML 3ML SC SCH (08:51)
[2016-06-14] MEDS: LISINOPRIL 5 MG TAB PO SCH (08:52)
--- NOTE | 2016-06-14 10:09 | Pharmacy Progress Note ---
Glycemic: Assessment & Plan Date of Service Jun 14, 2016. Assessment & Plan Item Value Date Time Bedside Glucose 148 mg/dl H 06/13/16 0702 Bedside Glucose 209 mg/dl H 06/13/16 0759 Bedside Glucose 286 mg/dl H 06/13/16 1201 Bedside Glucose 131 mg/dl H 06/13/16 1621 Bedside Glucose 120 mg/dl H 06/13/16 2040 Bedside Glucose 140 mg/dl H 06/14/16 0019 Bedside Glucose 163 mg/dl H 06/14/16 0404 Bedside Glucose 145 mg/dl H 06/14/16 0825 ASSESSMENT: * Pt transitioned off of IV insulin infusion 06/13/16 AM. Pt has been requiring ~ 100 units of insulin per day with adequate BSG control. * Current orders are Levemir SQ BID --> dosing based off of BSG as we are trying to determine true basal needs (dose ranges 20-30 units BID) & NovoLog per scale CF/CR 15/4 respectively. * Will change regimen to fixed dose basal insulin and continue current SSI. * Pt will need transitioned to Novolin 70/30 for discharge. PLAN: * Basal insulin with Levemir 25 units SQ BID * Prandial/correctional coverage with Novolog per scale ACHS * Goal Range: Low 120 mg/dL - High 160 mg/dL [will keep goal range slightly elevated based on high A1c , pt may feel hypo at otherwise normal BSGs] * Correction Factor: 15 mg/dL/unit * Per carb ratio of 1 unit per 4 grams CHO consumed LOOKING AHEAD TO DISCHARGE: * Patient will need simple and inexpensive antidiabetic regimen for outpatient use * Recommend [employer] ReliOn 70/30 insulin with breakfast/supper meals at a total daily dose of ~100 units/day * [facility] ReliOn 70/30 insulin 40-50 units twice daily with breakfast/supper * Dosing to be further titrated based on BSG trends by PCP * Recommend patient SMBG 2x/day prior to breakfast & supper * Pt will need Rx for insulin syringes and test strips * Patient may need a new meter if batteries are unable to be replaced.
--- NOTE | 2016-06-14 12:05 | Orthopedic Progress Note ---
Orthopedic Progress Note Date of Service Jun 14, 2016. Subjective Post OP Day: 2 Reports: feeling well, pain controlled w PO medications, Denies: SOB, calf pain , chest pain, complaints, light headedness, nausea / vomiting Objective calves soft nontender, splint C/D/I, dressing C/D/I, A&O x3, toes mobile Date Time Temp Pulse Resp B/P Pulse Ox O2 Delivery O2 Flow Rate FiO2 06/14/16 07:30 96 Room Air 06/14/16 07:10 36.7 87 18 113/71 96 Room Air 06/14/16 00:00 Room Air 06/13/16 23:25 37.1 80 18 92/57 91 Room Air 06/13/16 16:30 Room Air 06/13/16 15:31 37.0 83 17 105/65 95 Room Air Assessment & Plan Assessment: 51 yo male stable POD #2 s/p IM nail left tibia Plan: 1. Med management 2. DVT prophylaxis- ASA 3. PT/OT- gait training Inhouse Planning Pain Management: Percocet, Morphine DVT Prophylaxis: TEDs SCDs Discharge Planning Discharge Planning: home DVT Prophylaxis: ASA Discharge Planning Notes: Home today with self care
[2016-06-14] MEDS ORDERED: OXYC-57 PO (12:13)
[2016-06-14] MEDS ORDERED: ASPI-435 PO (12:13)
[2016-06-14] MEDS ORDERED: ASPEC325 PO (12:15)
[2016-06-14 12:28] VITALS: BP 113/71; PULSE 87; TEMP 36.7; O2SAT 96
[2016-06-14] MEDS ORDERED: INSULIN DETEMIR FLEXPEN/FLEX TOUCH 100 UNITS/ML 3ML SC SCH (21:00)
--- NOTE | 2016-06-17 15:58 | DISCHARGE SUMMARY ---
DISCHARGE DIAGNOSIS: Left tibia and fibular fracture. 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 CONSULTS: CHRIS Lopez/Vicki Childress M.D. COMPLICATIONS: None. PROCEDURES: Left intramedullary rodding of tibia fracture by Dr. Escalera on 06/12/2016. BRIEF HISTORY: As dictated in history and physical. HOSPITAL SUMMARY: The patient was admitted on the above noted date with the above noted fracture. He was put in a posterior splint and started on pain control and elevation and ice to the left lower extremity due to his fracture. The [facility] medical service was consulted for preoperative medical clearance and postoperative medical management. He was cleared for surgery by the following day and he was taken back to the operating room by Dr. Escalera on 06/12/2016 and the above noted IM rodding of his tibia was performed without difficulty. On his first postoperative day, he was feeling well. Neurovascular was intact. Splint was clean, dry and intact. Toes were mobile. Vital signs were stable. He was afebrile and he was started on physical therapy protocol, continued on DVT prophylaxis and pain management as well as medical management per [facility] Hospitalist service. Pharmacy had been consulted to work with the patient on managing his diabetes. At the time he had been on insulin drip being transitioned over to subQ insulin. The patient was seen by Pharmacy on the and recommendations were placed in the chart for insulin the patient needed to be on. He was otherwise feeling well and pain was controlled. Calves were soft, nontender. Dressings clean, dry and intact. Toes were mobile. Vital signs were stable. He was afebrile. Point of care glucose at around noontime was 182. He was otherwise remaining stable. Diabetes management team saw the patient prior to discharge and provided a new glucometer and discussed about using [employer] 70/30 insulin while applying for assistance for the insulin he already takes and unable to afford. Information was given to the patient and family and patient teaching was done and by 06/14/2016 the patient was discharged to home. For further review, please see chart. LAB AND X-RAY DATA: As per chart. DISCHARGE INSTRUCTIONS: The patient was discharged to home in satisfactory condition on 06/14/2016. DIET: Diabetic. ACTIVITY: Weightbearing as tolerated left lower extremity with walker or crutches. Maintain splint until followup with Dr. Escalera. Keep splint clean and dry. Frequent ice and elevation of the left lower leg. Mobilize toes and knee range of motion as tolerated. Refrain from any tobacco use. Follow up with Dr. Escalera typically within 10-14 days. Call for appointment if one has not been made for you. DISCHARGE MEDICATIONS: Aspirin 325 mg p.o. daily for 30 days, Percocet 5/325 1-2 tabs p.o. q. 4 hours p.r.n., resume taking atorvastatin 40 mg p.o. daily, citalopram 40 mg p.o. daily, Tricor 200 mg p.o. daily, Levemir 70 units subQ b.i.d., insulin lispro 30 units subQ t.i.d., lisinopril 5 mg p.o. daily, metformin 1000 mg p.o. b.i.d. Please follow your BSGs regularly as described per medicine service and per diabetic teaching. TRIP
--- NOTE | 2016-06-27 11:31 | OPERATIVE REPORT ---
DATE OF OPERATION: 06/11/2016 ADDENDUM DIRECTOR PRODUCT DEVELOPMENT: Freedom Del Cid PA-C. Mr. Del Cid was essential throughout all portions of the procedure including positioning, prepping, draping, surgical assistance, wound closure and splint application. I attest to the content of the Intraoperative Record and any orders documented therein. Any exceptio ns are noted below.
== END 2016-06-14 13:50 | disposition home or self-care (01) | DRG 494 ==
LOC: ENRESERVTM → ENRESERVDT → EDBD 13:08 → C.EDD 13:10 → C.MSW 15:51
PROVIDERS: ADMIT Orthopaedic Surgery Sports Medicine; ATTEND Orthopaedic Surgery Sports Medicine
PROC: 0QSH06Z Reposition Left Tibia with Intramedullary Internal Fixation Device, Open Approach (ICD-10-PCS; principal; 2016-06-12 10:15)
DX: S82.232A Displaced oblique fracture of shaft of left tibia, initial encounter for closed fracture (principal); S82.832A Other fracture of upper and lower end of left fibula, initial encounter for closed fracture; W19.XXXA Unspecified fall, initial encounter; Y93.01 Activity, walking, marching and hiking; Y92.009 Unspecified place in unspecified non-institutional (private) residence as the place of occurrence of the external cause; E11.65 Type 2 diabetes mellitus with hyperglycemia; Z91.120 Patient's intentional underdosing of medication regimen due to financial hardship; E11.42 Type 2 diabetes mellitus with diabetic polyneuropathy; E78.1 Pure hyperglyceridemia; I10 Essential (primary) hypertension; F17.200 Nicotine dependence, unspecified, uncomplicated; E66.9 Obesity, unspecified; Z68.35 Body mass index [BMI] 35.0-35.9, adult; Z79.4 Long term (current) use of insulin; Z79.84 Long term (current) use of oral hypoglycemic drugs; Z79.899 Other long term (current) drug therapy; Z87.19 Personal history of other diseases of the digestive system; Z89.412 Acquired absence of left great toe; Z82.49 Family history of ischemic heart disease and other diseases of the circulatory system; Z83.3 Family history of diabetes mellitus

== ENCOUNTER 2022-07-24 11:03 | Inpatient (IN) ==
--- NOTE | 2022-07-24 11:14 | Emergency Department Note ---
Impression & Plan Cardiac arrest, Pulmonary edema, Abnormal EKG, Hypoxia, Anemia ED Provider Note NAME: SITA SANDOVAL AGE: 57 SEX: M : 1965 ARRIVES VIA: Ambulance INFORMANT: Patient, EMS ED PROVIDER(S): Darryl Humphreys DO CHIEF COMPLAINT: Cardiac arrest HPI: The patient is a 57-year-old male who presented to the emergency department for an evaluation. The patient suffered a cardiac arrest while at dialysis. He was only on dialysis for approximately 1 hour. The patient states he has been compliant with his dialysis regimen. He does use tobacco products. He states has been compliant with his outpatient medications which do include a blood thinner. The patient denies having any symptoms prior to the onset of the cardiac arrest. He states that he "fell asleep". According to the EMS personnel the patient received epinephrine as well as atropine. He also received multiple rounds of CPR. Once the EMS personnel arrived the patient continued to receive CPR but then woke up. At this time he states he has no headache nausea or vomiting. He was found to be hypoxic prior to arrival and continues to be hypoxic in the emergency department. He was placed on supplemental oxygen. ROS: See above HPI for pertinent positives & negatives. A total of 10 systems reviewed and were otherwise negative. PAST MEDICAL HISTORY: See Below PAST SURGICAL HISTORY: See Below FAMILY HISTORY: See Below SOCIAL HISTORY: See Below HOME MEDICATIONS: See Below ALLERGIES: See Below VITALS: See Below PHYSICAL EXAMINATION: GENERAL: The patient is awake and alert. The patient is anxious appearing. EYES: The conjunctivae are clear. The pupils are round and reactive. EARS, NOSE, MOUTH AND THROAT: The nose is without any evidence of any deformity. NECK: The neck is nontender and supple. RESPIRATORY: Diminished breath sounds are noted throughout with scattered rales. CARDIOVASCULAR: Regular rate and rhythm noted there no murmurs rubs or gallops normal S1 normal S2. GASTROINTESTINAL: The abdomen is soft. Abdomen is nontender. MUSCULOSKELETAL/EXTREMITIES: Left lower extremity amputation was noted. SKIN: Pedal edema was noted in the right leg. There is excoriation and erythema noted to the lower abdominal wall as well is the right leg. NEUROLOGIC: Patient is awake alert and oriented x3 MEDICAL DECISION MAKING: The patient is a 57-year-old male who presented to the emergency department for an evaluation after having a cardiac arrest. The patient was at dialysis. He states he had no symptoms prior to the onset of this episode. According to the prehospital personnel when they arrived on scene the patient was not on a cardiac nurse. CPR was in progress. The patient had received epinephrine as well as atropine. When they arrived on scene they started to do CPR immediately and put the patient on the cardiac nurse. He did have an organized rhythm and after about 1 minute of CPR by the prehospital personnel the patient awoke. Upon arrival the patient had no specific complaints. He denies having any chest pain. He denies having any difficulty breathing although he was found to be in pulmonary edema on physical exam as well as radiographic studies. He was hypoxic but improved significantly on supplemental oxygen. I discussed patient's laboratory and radiographic studies with him. His initial EKG that was obtained by the prehospital personnel did appear ischemic in nature with ST segment elevation in the inferior leads with some ST depressions laterally. This has resolved upon arrival to the emergency department. The patient was felt to be very high risk. 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 He requested that I call [facility] to discuss transfer. I did talk to the hospi talist team at [facility]. They have agreed to accept the patient in transfer. Transfer paperwork was filled out by myself. Triage Nursing notes reviewed. Prior medical records reviewed Vital Signs: reviewed and remarkable for hypoxia. Differential diagnosis: Cardiac ischemia, aortic dissection, pulmonary embolism, electrolyte abnormality, acidosis, tension pneumothorax, hypothermia, hypovolemia, in tracranial event, cardiac tamponade, as well as other pathologies. ER treatment provided: See below Diagnostics interpreted by me: ECG: EKG was obtained in the emergency department. My interpretation is normal sinus rhythm at 85 bpm. There is no ectopy. Inferior Q waves were noted with high lateral ST depression with T wave inversions. This was compared to a tracing from June 11, 2016. The inferior Q waves are new compared to the previous tracing. A prehospital twelve-lead was evaluated. My interpretation is normal sinus rhythm at [address] segment elevation in the inferior leads with significant depression in the high as well as low lateral leads with T wave version in the lower lateral leads. These ischemic changes have since resolved compared to the tracing obtained in the emergency department Cardiac Monitoring: An order was placed for continuous cardiac monitoring. The monitor shows a rate of 70 bpm with sinus rhythm. Laboratory studies: As stated above and show below. Imaging studies: See below. Radiographic imaging was reviewed by myself Consultation(s): I discussed this case with Dr. Call who is on for the car salesman group at [facility]. I discussed this case with Radha Cordova who is on for the hospitalist group. I discussed this case with Dr. Mota who is on-call for the [facility] hospitalist group. He will evaluate the patient in the emergency department for possible management in our facility until transfer is available. ED COURSE: Procedures: none Critical Care: I have personally spent greater than 35 minutes of critical care time in the direct management of this patient. This includes bedside care, interpretation of diagnostic studies, and testing, discussion with consultants, patient, and family members, and other required patient management activities. This 35 minutes is in excess of all separately billable procedures. Past Med/Surg History Medical History Amputated great toe of left foot "due to osteomyelitis/diabetic ulcer" Dialysis patient DM type 2 (diabetes mellitus, type 2) Dyslipidemia End stage renal disease HTN (hypertension) Tobacco abuse Social History Smoking Status: Current every day smoker Feels Safe at Home: Yes Allergies Allergies Allergy/AdvReac Type Severity Reaction Status Date / Time No Known Allergies Allergy Mild * Verified 07/24/22 14:50 Home Meds Home Medications Medication Instructions Recorded Confirmed Lactobacillus acidophilus-pectin 1 tab PO DAILY 07/24/22 07/24/22 30 mg-20 mg tablet acetaminophen 325 mg tablet 650 mg PO Q4H PRN PAIN/FEVER 07/24/22 07/24/22 (Tylenol) apixaban 5 mg tablet (Eliquis) 5 mg PO BID 07/24/22 07/24/22 atorvastatin 80 mg tablet 80 mg PO HS 07/24/22 07/24/22 bumetanide 1 mg tablet 2 mg PO BID 07/24/22 07/24/22 cholecalciferol (vitamin D3) 50 50 mcg PO DAILY 04/27/23 04/27/23 mcg (2,000 unit) capsule (Vitamin D3) clopidogrel 75 mg tablet 75 mg PO DAILY 07/24/22 07/24/22 fenofibrate 160 mg tablet 160 mg PO HS 07/24/22 07/24/22 gabapentin 100 mg capsule 100 mg PO BID 07/24/22 07/24/22 insulin aspart U-100 100 unit/mL 15 unit subcut TIDM 07/24/22 07/24/22 (3 mL) subcutaneous pen (Novolog FlexPen U-100 Insulin aspart) insulin glargine 100 unit/mL (3 0 unit subcut QAM 07/24/22 07/24/22 mL) subcutaneous pen (Basaglar KwikPen U-100 Insulin) lanthanum 750 mg chewable tablet 750 mg PO TIDM 07/24/22 07/24/22 (Fosrenol) levofloxacin 250 mg tablet 500 mg PO DAILY 07/24/22 07/24/22 metoprolol succinate 100 mg 100 mg PO DAILY 07/24/22 07/24/22 tablet,extended release 24 hr pantoprazole 40 mg tablet,delayed 40 mg PO DAILYBB 07/24/22 07/24/22 release sertraline 50 mg tablet 50 mg PO HS 07/24/22 07/24/22 tamsulosin 0.4 mg capsule 0.4 mg PO DAILY 07/24/22 07/24/22 venlafaxine 150 mg 150 mg PO DAILY 07/24/22 07/24/22 capsule,extended release 24 hr vitamin B complex-vitamin C-folic 1 tab PO DAILY 07/24/22 07/24/22 acid 0.8 mg tablet (Nephro-Shaan) Results & Data (ED) Vital Signs Vital Signs - 24 hr 07/24/22 11:07 07/24/22 11:07 07/24/22 11:09 Temperature 36.5 C Temperature Source Temporal Artery Scan Pulse Rate 83 Pulse Rate from SpO2 Sensor 86 Pulse Rhythm Regular Respiratory Rate 18 18 Respiratory Effort / Characteristics Non-Labored Spontaneous Non-Labored Spontaneous Respiratory Depth Normal Normal Blood Pressure 110/59 L Blood Pressure Mean 76 Pulse Oximetry 70 L 77 L Oxygen Delivery Method Room Air Nasal Cannula Oxygen Flow Rate 6 Sepsis Recent Fever Within 48 Hours No Sepsis New/Unexplained Change in Mental Status No Sepsis Action Taken by Nursing No Action Required 07/24/22 11:11 07/24/22 11:11 07/24/22 11:24 Temperature Temperature Source Pulse Rate 85 Pulse Rate from SpO2 Sensor 85 Pulse Rhythm Respiratory Rate 18 Respiratory Effort / Characteristics Respiratory Depth Blood Pressure 110/59 L 114/71 Blood Pressure Mean 76 85 Pulse Oximetry 86 L Oxygen Delivery Method Nasal Cannula Oxygen Flow Rate 6 Sepsis Recent Fever Within 48 Hours Sepsis New/Unexplained Change in Mental Status Sepsis Action Taken by Nursing 07/24/22 11:24 07/24/22 11:30 07/24/22 11:30 Temperature Temperature Source Pulse Rate 82 82 Pulse Rate from SpO2 Sensor 82 Pulse Rhythm Respiratory Rate 19 18 Respiratory Effort / Characteristics Respiratory Depth Blood Pressure 120/69 Blood Pressure Mean 86 Pulse Oximetry 100 Oxygen Delivery Method Nasal Cannula Oxygen Flow Rate 6 Sepsis Recent Fever Within 48 Hours Sepsis New/Unexplained Change in Mental Status Sepsis Action Taken by Nursing 07/24/22 11:37 07/24/22 11:45 07/24/22 11:45 Temperature Temperature Source Pulse Rate 82 Pulse Rate from SpO2 Sensor Pulse Rhythm Respiratory Rate Respiratory Effort / Characteristics Respiratory Depth Blood Pressure 116/74 Blood Pressure Mean 88 Pulse Oximetry 99 Oxygen Delivery Method Nasal Cannula Oxygen Flow Rate 6 Sepsis Recent Fever Within 48 Hours Sepsis New/Unexplained Change in Mental Status Sepsis Action Taken by Nursing 07/24/22 11:45 07/24/22 12:00 07/24/22 12:00 Temperature Temperature Source Pulse Rate 81 81 Pulse Rate from SpO2 Sensor 80 82 Pulse Rhythm Respiratory Rate 22 22 Respiratory Effort / Characteristics Respiratory Depth Blood Pressure 130/74 Blood Pressure Mean 92 Pulse Oximetry 99 97 Oxygen Delivery Method Nasal Cannula Nasal Cannula Oxygen Flow Rate 6 6 Sepsis Recent Fever Within 48 Hours Sepsis New/Unexplained Change in Mental Status Sepsis Action Taken by Nursing 07/24/22 12:15 07/24/22 12:15 07/24/22 12:30 Temperature Temperature Source Pulse Rate 82 Pulse Rate from SpO2 Sensor 81 Pulse Rhythm Respiratory Rate 25 H Respiratory Effort / Characteristics Respiratory Depth Blood Pressure 108/81 139/69 Blood Pressure Mean 90 92 Pulse Oximetry 98 Oxygen Delivery Method Oxygen Flow Rate 6 Sepsis Recent Fever Within 48 Hours Sepsis New/Unexplained Change in Mental Status Sepsis Action Taken by Nursing 07/24/22 12:30 07/24/22 12:37 07/24/22 12:37 Temperature Temperature Source Pulse Rate 78 78 Pulse Rate from SpO2 Sensor 80 79 Pulse Rhythm Respiratory Rate 20 19 Respiratory Effort / Characteristics Respiratory Depth Blood Pressure 136/86 Blood Pressure Mean 102 Pulse Oximetry 98 99 Oxygen Delivery Method Oxygen Flow Rate 6 6 Sepsis Recent Fever Within 48 Hours Sepsis New/Unexplained Change in Mental Status Sepsis Action Taken by Nursing 07/24/22 12:45 07/24/22 12:46 07/24/22 12:46 Temperature Temperature Source Pulse Rate 78 78 Pulse Rate from SpO2 Sensor 78 Pulse Rhythm Respiratory Rate 25 H 23 Respiratory Effort / Characteristics Respiratory Depth Blood Pressure 137/77 Blood Pressure Mean 97 Pulse Oximetry 99 Oxygen Delivery Method Nasal Cannula Oxygen Flow Rate 6 Sepsis Recent Fever Within 48 Hours Sepsis New/Unexplained Change in Mental Status Sepsis Action Taken by Nursing 07/24/22 13:00 07/24/22 13:01 07/24/22 13:01 Temperature Temperature Source Pulse Rate 78 79 Pulse Rate from SpO2 Sensor 80 79 Pulse Rhythm Respiratory Rate 25 H 19 Respiratory Effort / Characteristics Respiratory Depth Blood Pressure 143/76 H Blood Pressure Mean 98 Pulse Oximetry 98 99 Oxygen Delivery Method Nasal Cannula Oxygen Flow Rate 6 Sepsis Recent Fever Within 48 Hours Sepsis New/Unexplained Change in Mental Status Sepsis Action Taken by Nursing 07/24/22 13:15 07/24/22 13:15 07/24/22 13:30 Temperature Temperature Source Pulse Rate 76 Pulse Rate from SpO2 Sensor 78 Pulse Rhythm Respiratory Rate 21 Respiratory Effort / Characteristics Respiratory Depth Blood Pressure 134/83 122/92 Blood Pressure Mean 100 102 Pulse Oximetry 98 Oxygen Delivery Method Nasal Cannula Oxygen Flow Rate 6 Sepsis Recent Fever Within 48 Hours Sepsis New/Unexplained Change in Mental Status Sepsis Action Taken by Nursing 07/24/22 13:30 07/24/22 13:45 07/24/22 13:45 Temperature Temperature Source Pulse Rate 76 74 Pulse Rate from SpO2 Sensor 73 70 Pulse Rhythm Respiratory Rate 18 24 Respiratory Effort / Characteristics Respiratory Depth Blood Pressure 134/82 Blood Pressure Mean 99 Pulse Oximetry 99 100 Oxygen Delivery Method Nasal Cannula Nasal Cannula Oxygen Flow Rate 6 6 Sepsis Recent Fever Within 48 Hours Sepsis New/Unexplained Change in Mental Status Sepsis Action Taken by Nursing 07/24/22 14:00 07/24/22 14:01 07/24/22 14:01 Temperature Temperature Source Pulse Rate 75 75 Pulse Rate from SpO2 Sensor 74 75 Pulse Rhythm Respiratory Rate 14 26 H Respiratory Effort / Characteristics Respiratory Depth Blood Pressure 131/74 Blood Pressure Mean 93 Pulse Oximetry 100 99 Oxygen Delivery Method Nasal Cannula Nasal Cannula Oxygen Flow Rate 6 6 Sepsis Recent Fever Within 48 Hours Sepsis New/Unexplained Change in Mental Status Sepsis Action Taken by Nursing 07/24/22 14:15 07/24/22 14:15 07/24/22 14:30 Temperature Temperature Source Pulse Rate 72 Pulse Rate from SpO2 Sensor Pulse Rhythm Respiratory Rate 18 Respiratory Effort / Characteristics Respiratory Depth Blood Pressure 130/74 136/80 Blood Pressure Mean 92 98 Pulse Oximetry 99 Oxygen Delivery Method Nasal Cannula Oxygen Flow Rate 6 Sepsis Recent Fever Within 48 Hours Sepsis New/Unexplained Change in Mental Status Sepsis Action Taken by Nursing 07/24/22 14:30 07/24/22 14:45 07/24/22 14:45 Temperature Temperature Source Pulse Rate 70 67 Pulse Rate from SpO2 Sensor Pulse Rhythm Respiratory Rate 18 17 Respiratory Effort / Characteristics Respiratory Depth Blood Pressure 116/77 Blood Pressure Mean 90 Pulse Oximetry 100 100 Oxygen Delivery Method Nasal Cannula Nasal Cannula Oxygen Flow Rate 6 6 Sepsis Recent Fever Within 48 Hours Sepsis New/Unexplained Change in Mental Status Sepsis Action Taken by Nursing 07/24/22 15:00 07/24/22 15:00 Temperature Temperature Source Pulse Rate 73 Pulse Rate from SpO2 Sensor Pulse Rhythm Respiratory Rate 24 Respiratory Effort / Characteristics Respiratory Depth Blood Pressure 121/80 Blood Pressure Mean 93 Pulse Oximetry 100 Oxygen Delivery Method Nasal Cannula Oxygen Flow Rate 6 Sepsis Recent Fever Within 48 Hours Sepsis New/Unexplained Change in Mental Status Sepsis Action Taken by Skilled Nursing Medications Current Medication List: was personally reviewed by me Laboratory Data Attestation: I reviewed the patient's lab results. 07/24/22 11:20 07/24/22 11:20 Lab Results 07/24/22 07/24/22 07/24/22 Range/Units 11:20 11:20 11:20 WBC 8.46 (4.8-10.8) K/ul RBC 3.09 L (4.70-6.10) M/uL Hgb 8.5 L (14.0-18.0) g/dl Hct 28.0 L (42.0-52.0) % MCV 90.6 (80.0-100.0) fL MCH 27.5 (25.0-34.0) pg MCHC 30.4 L (32.0-36.0) g/dL RDW Std Deviation 60.1 H (36.4-46.3) fL RDW Coeff of Desiree 18.4 H (11.5-14.5) % Plt Count 205 (130-400) K/uL MPV 10.2 (9.4-12.4) fL Immature Gran % (Auto) 0.5 % Neut % (Auto) 81.9 % Lymph % (Auto) 5.6 % Emery % (Auto) 5.8 % Eos % (Auto) 5.6 % Baso % (Auto) 0.6 % Neut # (Auto) 6.94 H (1.40-6.50) K/uL Lymph # (Auto) 0.47 L (1.2-3.4) K/uL Emery # (Auto) 0.49 (0.11-0.59) K/uL Eos # (Auto) 0.47 (0-0.50) K/uL Baso # (Auto) 0.05 (0-0.2) K/uL Immature Gran # (Auto) 0.04 (0.01-0.20) K/uL PT 12.4 H (9.0-12.0) Seconds INR 1.1 (0.9-1.1) APTT 28.3 (21.0-31.0) Seconds PTT Ratio 1.0 VBG pH (7.36-7.41) VBG pCO2 (38-50) mmHg VBG pO2 mmHg VBG HCO3 mmol/L VBG O2 Saturation % VBG Base Excess mEq/L Sodium 138 (136-145) mmol/L Potassium 4.6 (3.5-5.1) mmol/L Chloride 104 (98-107) mmol/L Carbon Dioxide 31 (21-32) mmol/L Anion Gap 3 (3-11) BUN 61 H (6-23) mg/dl Creatinine 2.84 H (0.6-1.4) mg/dl Est Cr Clr Drug Dosing 44.4 ml/min Est GFR ( Amer) 27.3 ml/min Est GFR (Non-Af Amer) 23.5 ml/min BUN/Creatinine Ratio 21.5 H (10-20) Glucose 183 H (70-99(Fasting)) mg/dl Lactate (0.4-2.0) mmol/L Calcium 8.2 L (8.6-10.3) mg/dl Total Bilirubin 0.3 (0.2-1.0) mg/dl AST 35 (13-39) U/L ALT 17 (7-52) U/L Alkaline Phosphatase 50 (34-104) U/L Troponin I High Sens 98.0 H* (0-20) pg/ml C-Reactive Protein 4.45 H (0-0.5) mg/dl Total Protein 6.5 (6.0-8.3) gm/dl Albumin 2.8 L (3.4-5.0) gm/dl Globulin 3.7 (2.5-4.0) gm/dl Albumin/Globulin Ratio 0.8 L (0.9-2) Lipase 12 (11-82) U/L Procalcitonin (0-0.5) ng/ml SARS-CoV-2, RNA, NAAT (NEGATIVE) 07/24/22 07/24/22 07/24/22 Range/Units 11:20 11:20 11:23 WBC (4.8-10.8) K/ul RBC (4.70-6.10) M/uL Hgb (14.0-18.0) g/dl Hct (42.0-52.0) % MCV (80.0-100.0) fL MCH (25.0-34.0) pg MCHC (32.0-36.0) g/dL RDW Std Deviation (36.4-46.3) fL RDW Coeff of Desiree (11.5-14.5) % Plt Count (130-400) K/uL MPV (9.4-12.4) fL Immature Gran % (Auto) % Neut % (Auto) % Lymph % (Auto) % Emery % (Auto) % Eos % (Auto) % Baso % (Auto) % Neut # (Auto) (1.40-6.50) K/uL Lymph # (Auto) (1.2-3.4) K/uL Emery # (Auto) (0.11-0.59) K/uL Eos # (Auto) (0-0.50) K/uL Baso # (Auto) (0-0.2) K/uL Immature Gran # (Auto) (0.01-0.20) K/uL PT (9.0-12.0) Seconds INR (0.9-1.1) APTT (21.0-31.0) Seconds PTT Ratio VBG pH 7.35 L (7.36-7.41) VBG pCO2 52 H (38-50) mmHg VBG pO2 186 mmHg VBG HCO3 29 mmol/L VBG O2 Saturation 97.7 % VBG Base Excess 2.1 mEq/L Sodium (136-145) mmol/L Potassium (3.5-5.1) mmol/L Chloride (98-107) mmol/L Carbon Dioxide (21-32) mmol/L Anion Gap (3-11) BUN (6-23) mg/dl Creatinine (0.6-1.4) mg/dl Est Cr Clr Drug Dosing ml/min Est GFR ( Amer) ml/min Est GFR (Non-Af Amer) ml/min BUN/Creatinine Ratio (10-20) Glucose (70-99(Fasting)) mg/dl Lactate 0.9 (0.4-2.0) mmol/L Calcium (8.6-10.3) mg/dl Total Bilirubin (0.2-1.0) mg/dl AST (13-39) U/L ALT (7-52) U/L Alkaline Phosphatase (34-104) U/L Troponin I High Sens (0-20) pg/ml C-Reactive Protein (0-0.5) mg/dl Total Protein (6.0-8.3) gm/dl Albumin (3.4-5.0) gm/dl Globulin (2.5-4.0) gm/dl Albumin/Globulin Ratio (0.9-2) Lipase (11-82) U/L Procalcitonin 0.11 (0-0.5) ng/ml SARS-CoV-2, RNA, NAAT (NEGATIVE) 07/24/22 Range/Units 11:24 WBC (4.8-10.8) K/ul RBC (4.70-6.10) M/uL Hgb (14.0-18.0) g/dl Hct (42.0-52.0) % MCV (80.0-100.0) fL MCH (25.0-34.0) pg MCHC (32.0-36.0) g/dL RDW Std Deviation (36.4-46.3) fL RDW Coeff of Desiree (11.5-14.5) % Plt Count (130-400) K/uL MPV (9.4-12.4) fL Immature Gran % (Auto) % Neut % (Auto) % Lymph % (Auto) % Emery % (Auto) % Eos % (Auto) % Baso % (Auto) % Neut # (Auto) (1.40-6.50) K/uL Lymph # (Auto) (1.2-3.4) K/uL Emery # (Auto) (0.11-0.59) K/uL Eos # (Auto) (0-0.50) K/uL Baso # (Auto) (0-0.2) K/uL Immature Gran # (Auto) (0.01-0.20) K/uL PT (9.0-12.0) Seconds INR (0.9-1.1) APTT (21.0-31.0) Seconds PTT Ratio VBG pH (7.36-7.41) VBG pCO2 (38-50) mmHg VBG pO2 mmHg VBG HCO3 mmol/L VBG O2 Saturation % VBG Base Excess mEq/L Sodium (136-145) mmol/L Potassium (3.5-5.1) mmol/L Chloride (98-107) mmol/L Carbon Dioxide (21-32) mmol/L Anion Gap (3-11) BUN (6-23) mg/dl Creatinine (0.6-1.4) mg/dl Est Cr Clr Drug Dosing ml/min Est GFR ( Amer) ml/min Est GFR (Non-Af Amer) ml/min BUN/Creatinine Ratio (10-20) Glucose (70-99(Fasting)) mg/dl Lactate (0.4-2.0) mmol/L Calcium (8.6-10.3) mg/dl Total Bilirubin (0.2-1.0) mg/dl AST (13-39) U/L ALT (7-52) U/L Alkaline Phosphatase (34-104) U/L Troponin I High Sens (0-20) pg/ml C-Reactive Protein (0-0.5) mg/dl Total Protein (6.0-8.3) gm/dl Albumin (3.4-5.0) gm/dl Globulin (2.5-4.0) gm/dl Albumin/Globulin Ratio (0.9-2) Lipase (11-82) U/L Procalcitonin (0-0.5) ng/ml SARS-CoV-2, RNA, NAAT NEGATIVE (NEGATIVE) Imaging Data Attestation: I personally reviewed and interpreted this imaging study as tram ortiz: My Impression: 1 view chest x-ray was obtained in the emergency department. My interpretation is pulmonary edema with cardiomegaly. Final report below. Radiologist's Impression: Chest X-Ray 07/24/22 11:07 XR chest 1V portable HISTORY: Chest pain, nonspecific COMPARISON: Chest 06/11/2016. FINDINGS: There are low lung volumes. The heart is enlarged. No pneumothorax. No significant pleural effusion. Interstitial/vascular thickening consistent with moderate pulmonary edema. There are poststernotomy changes and a left-sided pacemaker. Right jugular central venous catheter terminates at the distal SVC. IMPRESSION: Cardiomegaly with moderate pulmonary edema. ACT 112: Negative or not required by law. Electronically signed by: Feliciano Dacosta M.D. 07/24/2022 11:36 AM Discharge Plan Visit Data Chief Complaint: Cardiac Assessment ED Provider: Darryl Humphreys Discharge Problem: Cardiac arrest, Pulmonary edema, Abnormal EKG, Hypoxia, Anemia Patient Disposition: Transfer Acute Care Hospital Forms Stand Alone Forms: My [facility] Prescriptions Prescriptions: No Action atorvastatin 80 mg tablet 80 mg PO HS metoprolol succinate 100 mg tablet extended release 24 hr 100 mg PO DAILY venlafaxine 150 mg capsule,extended release 24hr 150 mg PO DAILY clopidogrel 75 mg tablet 75 mg PO DAILY levofloxacin 250 mg tablet 500 mg PO DAILY Rx Instructions: STARTED 07/23/22 FOR 10 DAYS, ENDS 08/02/22. tamsulosin 0.4 mg capsule 0.4 mg PO DAILY pantoprazole 40 mg tablet,delayed release (DR/EC) 40 mg PO DAILYBB bumetanide 1 mg tablet 2 mg PO BID Nephro-Shaan 0.8 mg tablet 1 tab PO DAILY gabapentin 100 mg capsule 100 mg PO BID sertraline 50 mg tablet 50 mg PO HS insulin aspart U-100 [Novolog FlexPen U-100 Insulin] 100 unit/mL (3 mL) insulin pen 15 unit SUBCUT TIDM insulin glargine [Basaglar KwikPen U-100 Insulin] 100 unit/mL (3 mL) insulin pen 0 unit SUBCUT QAM Rx Instructions: LAST PER EXT MED HX--60 UNITS Eliquis 5 mg tablet 5 mg PO BID acetaminophen [Tylenol] 325 mg Tablet 650 mg PO Q4H PRN (Reason: PAIN/FEVER) fenofibrate 160 mg tablet 160 mg PO HS lanthanum [Fosrenol] 750 mg Tablet,Chewable 750 mg PO TIDM Rx Instructions: administer with food; chew thoroughly before swallowing cholecalciferol (vitamin D3) [Vitamin D3] 50 mcg (2,000 unit) Capsule 50 mcg PO DAILY Lactobacillus acidoph-pectin 30-20 mg Tablet 1 tab PO DAILY Referrals Referrals: Gamaliel Tomas MD [Outside Practitioners] - Pulmonary edema Qualifiers: Chronicity: acute Qualified Code(s): J81.0 - Acute pulmonary edema Anemia Qualifiers: Anemia type: unspecified type Qualified Code(s): D64.9 - Anemia, unspecified
--- NOTE | 2022-07-24 11:38 | XRay Report ---
XR chest 1V portable HISTORY: Chest pain, nonspecific COMPARISON: Chest 06/11/2016. FINDINGS: There are low lung volumes. The heart is enlarged. No pneumothorax. No significant pleural effusion. Interstitial/vascular thickening consistent with moderate pulmonary edema. There are postst ernotomy changes and a left-sided pacemaker. Right jugular central venous catheter terminates at the distal SVC. IMPRESSION: Cardiomegaly with moderate pulmonary edema. ACT 112: Negative or not required by law. Electronically signed by: Feliciano Dacosta M.D. 07/24/2022 11:36 AM
[2022-07-24 11:50] LABS: Base Excess VBG 2.1 mEq/L; HCO3 VBG 29 mmol/L; Oxygen Saturation VBG 97.7 %; PCO2 VBG 52 mmHg (38-50); PO2 VBG 186 mmHg; pH VBG 7.35 (7.36-7.41)
[2022-07-24 11:55] LABS: Basophils # (auto) 0.05 K/uL (0-0.2); Basophils % (auto) 0.6 %; Eosinophils # (auto) 0.47 K/uL (0-0.50); Eosinophils % (auto) 5.6 %; Hemoglobin 8.5 g/dl (14.0-18.0); Immature Granulocytes # (auto) 0.04 K/uL (0.01-0.20); Immature Granulocytes % (auto) 0.5 %; Lymphocytes # (auto) 0.47 K/uL (1.2-3.4); Lymphocytes % (auto) 5.6 %; Mean Corpuscular Hemoglobin 27.5 pg (25.0-34.0); Mean Corpuscular Hgb Conc 30.4 g/dL (32.0-36.0); Mean Corpuscular Volume 90.6 fL (80.0-100.0); Mean Platelet Volume 10.2 fL (9.4-12.4); Monocytes # (auto) 0.49 K/uL (0.11-0.59); Monocytes % (auto) 5.8 %; Neutrophils # (auto) 6.94 K/uL (1.40-6.50); Neutrophils % (auto) 81.9 %; Platelet Count 205 K/uL (130-400); RDW Coefficient of Variation 18.4 % (11.5-14.5); RDW Standard Deviation 60.1 fL (36.4-46.3); Red Blood Count 3.09 M/uL (4.70-6.10); White Blood Count 8.46 K/ul (4.8-10.8)
[2022-07-24 12:13] LABS: Albumin Globulin Ratio 0.8 (0.9-2); Albumin Level 2.8 gm/dl (3.4-5.0); BUN Creatinine Ratio 21.5 (10-20); Bilirubin,Total 0.3 mg/dl (0.2-1.0); C Reactive Protein 4.45 mg/dl (0-0.5); Calcium 8.2 mg/dl (8.6-10.3); Creatinine Clr Calc Pharmacy 44.4 ml/min; Est GFR (African American) 27.3 ml/min; Est GFR (Non-African American) 23.5 ml/min; Globulin 3.7 gm/dl (2.5-4.0); Potassium 4.6 mmol/L (3.5-5.1); Total Protein 6.5 gm/dl (6.0-8.3)
[2022-07-24 12:23] LABS: INR 1.1 (0.9-1.1); Partial Thromboplastin Time 28.3 Seconds (21.0-31.0); Prothrombin Time 12.4 Seconds (9.0-12.0)
[2022-07-24] MEDS ORDERED: ASPIRIN 81 MG CHEW PO STA (16:55)
[2022-07-24] MEDS ORDERED: Heparin IV Adult Wt-Based Standard WITH Bolus Protocol IV SCH (17:00)
[2022-07-24] MEDS ORDERED: HEPARIN 25000 UNIT/500 ML D5W IV ONE (17:10)
[2022-07-24] MEDS ORDERED: HEPARIN SOD (PORCINE) 1000 UNIT/ML ONE (17:11)
--- NOTE | 2022-07-24 17:44 | History & Physical Report ---
Date of Service July 24, 2022 Assessment & Plan (1) Cardiac arrest: Plan: Cardiac arrest/unresponsiveness Received ROSC after 30 seconds - 1 minute of CPR. Received 2 rounds of epi and 2 rounds of atropine in route to the hospital With ST elevation in inferior leads, ST depressions lateral leads on prehospital EKG. ST changes improved on ER EKG repeat Troponin mildly elevated to 89 then 211. Trended Case reviewed with [facility] Dr. Watts. Initially was held in the ER pending transfer to [facility] as it was patient's preference as that is where he receives most of his care. On delay of transfer was recommended for hospitalist observation. Case was reviewed with [facility] cardiology, based on his history of triple CABG with single RESENDEZ to LAD vessel and underlying diabetes, prior EF of 20% was recommended for cardiac catheterization. RESENDEZ to LAD unlikely as patient was asymptomatic after ROSC with minimal troponin rise and improvement in EKG changes. Cath was not felt to be required emergently, and was okay to be followed up with 07/25. Patient agreeable to remain at [facility] for further care. Admitted to PCU Troponin trended Heparin drip ordered, aspirin ordered Clinically asymptomatic, sinus rhythm, pain-free at hospitalist assessment. Admitted to PCU for further monitoring With pulmonary edema on EKG. Bumex converted to Lasix IV 40 mg, follow ins and outs. Titrate oxygen to goal greater than 90% CAD s/p CABG x3 Collateral collected by phone from [facility] cardiology. Patient with history of CABG x3 with 2020 cath showing occlusion of all vessels except for patent RESENDEZ to LAD Patient given aspirin, and started on heparin drip. He is on apixaban 5 mg p.o. twice daily NIGHT TIME NANNY Management of cardiac arrest/unresponsiveness as noted, cardiology consulted Pending additional record faxes with details of PCI Continue metoprolol daily Bumex converted to Lasix as noted Patient is not on KIM/ARB due to renal disease Plavix continued Atorvastatin continued At time of hospitalist assessment patient is alert, oriented, with no chest pain or shortness of breath ESRD Due to diabetes mellitus Thursday dialysis Potassium 4.6, appears near euvolemic Nephrology consulted for dialysis facilitation. Completed 1 hour of dialysis 07/24. Patient likely to have contrast load 07/25 for cardiac catheterization as noted Patient with right dialysis catheter in place, during placement had some overlying tenderness/warmth of his suturing site for which has been on levofloxacin, additional doses deferred due to potential for QT interaction. Keflex ordered. Ends 08/02. No cx results available Patient with some warmth/erythema overlying right dialysis catheter site, has been on a course of levofloxacin with gradual clinical improvement. Discussed continued but dose adjusted as every 48 hour dosing DM 2 Continue basal bolus insulin Goal BSG [id number] Glucose checks AC/at bedtime S/p left AKA, right first and second toe amputations due to diabetic complications DVT prophylaxis: Heparinized Diet: N.p.o. midnight Disposition: PCU CODE STATUS: Full code (2) Pulmonary edema: Plan: Lasix as noted otherwise Titrate O2 to greater than 90% In the setting of EF 20% and unresponsive event (3) Amputated great toe of left foot: (4) Tobacco abuse: (5) HTN (hypertension): (6) Dyslipidemia: (7) DM type 2 (diabetes mellitus, type 2): History of Present Illness Primary Care Provider: Patrick E. Rashid Frausto is a 57-year-old male with a past medical history of CAD s/p triple bypass at [facility] with cardiac cath 2020 showing occlusions of grafts except for his RESENDEZ to LAD, ESRD due to diabetic nephropathy, poorly controlled DM with right first and second toe amputations and left above-knee amputation who presented after he became unresponsive 1 hour into dialysis. Patient reportedly did not have a pulse, EKG showed PEA with ST elevations in inferior leads and ST depressions in the lateral leads. VT/VF was not reported. Patient received 2 doses of epi, 2 doses of atropine with ROSC after 30-60 seconds. When patient woke up he reported he remembers going to sleep, and then woke up surrounded by people. Denies chest pain, chest pressure, shortness of breath, difficulty breathing. Denies angina leading up to this event. Patient expressed to the ER that he preferred to be treated at [facility] where his prior care had been. He was pending transfer, however this was delayed due to bed availability and medical service was consulted for inpatient admission pending transfer. 2-hour troponin was ordered and increased to 211. Collateral was collected from [facility] cardiology and discussed with Dr. Watts noted patient had a EF of 20% at last echo, and cath results as noted above. Based on this recommended patient be evaluated for cardiac catheterization. This was discussed with Dr. Goyal as well. Unlikely that patient had a blockage to his remaining graft as he would likely not present with a minimal troponin elevation and asymptomatic once woken up, can proceed with cath but this may be done tomorrow. Discussed with patient who is agreeable to having a cath here tomorrow morning. Nephrology is consulted for ESRD management and dialysis around contrast load. Patient is a very poor historian of his medication does not know them by heart, medicines are reconciled by online portal and family at bedside. Patient denies recent fever, chills, sweats, lightheadedness, dizziness. Was sleepy during dialysis, but did not have chest pain leading up to his unresponsive episode. Does not remember receiving CPR. No past history of seizures. Denies cough. Med Rec: Tylenol as needed Benadryl as needed Methylprednisolone as needed for allergic reaction Nitro as needed for chest pain Mircera 75 mcg twice daily Atorvastatin 80 daily Basaglar Bumex 2 mg daily Vitamin D3 50 mcg daily Effexor 150 mg daily Eliquis twice daily 5 mg Fenofibrate 150 mg daily Flomax 0.4 mg daily Lanthanum 750 mg 3 times daily with meals Gabapentin 100 mg twice daily Lactobacillus probiotic NovoLog 15 units with lunch/supper Plavix 75 mg daily Protonix 40 mg daily Metoprolol succinate 100 mg daily Zoloft 50 mg nightly No aspirin per med list. Medical History: Reviewed Medications: Reviewed Surgical History: Reviewed Family history: Reviewed Allergies: Reviewed Social History: Reviewed, current tobacco use. Tobacco cessation recommended, cardiac and stroke risks of tobacco use discussed at bedside Code Status: Full Allergies Allergy/AdvReac Type Severity Reaction Status Date / Time No Known Allergies Allergy Mild * Verified 07/24/22 14:50 Home Medications Medication Instructions Recorded Confirmed Type Lactobacillus acidophilus-pectin 1 tab PO DAILY 07/24/22 07/24/22 History 30 mg-20 mg tablet acetaminophen 325 mg tablet 650 mg PO Q4H PRN PAIN/FEVER 07/24/22 07/24/22 History (Tylenol) apixaban 5 mg tablet (Eliquis) 5 mg PO BID 07/24/22 07/24/22 History atorvastatin 80 mg tablet 80 mg PO HS 07/24/22 07/24/22 History bumetanide 1 mg tablet 2 mg PO BID 07/24/22 07/24/22 History cholecalciferol (vitamin D3) 50 50 mcg PO DAILY 07/24/22 07/24/22 History mcg (2,000 unit) capsule (Vitamin D3) clopidogrel 75 mg tablet 75 mg PO DAILY 07/24/22 07/24/22 History fenofibrate 160 mg tablet 160 mg PO HS 07/24/22 07/24/22 History gabapentin 100 mg capsule 100 mg PO BID 07/24/22 07/24/22 History insulin aspart U-100 100 unit/mL 15 unit subcut TIDM 07/24/22 07/24/22 History (3 mL) subcutaneous pen (Novolog FlexPen U-100 Insulin aspart) insulin glargine 100 unit/mL (3 0 unit subcut QAM 07/24/22 07/24/22 History mL) subcutaneous pen (Basaglar KwikPen U-100 Insulin) lanthanum 750 mg chewable tablet 750 mg PO TIDM 07/24/22 07/24/22 History (Fosrenol) levofloxacin 250 mg tablet 500 mg PO DAILY 07/24/22 07/24/22 History metoprolol succinate 100 mg 100 mg PO DAILY 07/24/22 07/24/22 History tablet,extended release 24 hr pantoprazole 40 mg tablet,delayed 40 mg PO DAILYBB 07/24/22 07/24/22 History release sertraline 50 mg tablet 50 mg PO HS 07/24/22 07/24/22 History tamsulosin 0.4 mg capsule 0.4 mg PO DAILY 07/24/22 07/24/22 History venlafaxine 150 mg 150 mg PO DAILY 07/24/22 07/24/22 History capsule,extended release 24 hr vitamin B complex-vitamin C-folic 1 tab PO DAILY 07/24/22 07/24/22 History acid 0.8 mg tablet (Nephro-Shaan) Past Med/Surg History Medical History Amputated great toe of left foot "due to osteomyelitis/diabetic ulcer" Dialysis patient DM type 2 (diabetes mellitus, type 2) Dyslipidemia End stage renal disease HTN (hypertension) Tobacco abuse Social History Smoking Status: Current every day smoker Cigarettes Per Day: 1/2 pack; Hx Alcohol Use: Yes Alcohol type: beer and hard liquor Hx Substance Use: No Preferred Language: German Communication Ability: Effective Outboard Motor Inspector Required: No Beliefs That Will Affect Care: None Current Living Situation: Family Current Living Situation Comment: lives with daughter Other Information That Helps Us Care for You: No Feels Safe at Home: Yes Safety Concerns: Feels Safe At This Time Assistive Devices: Oxygen - at Night and Wheelchair Review of Systems Review of Systems: All systems reviewed & are unremarkable except as noted in HPI & below Physical Exam Physical Exam: General: A&Ox3. NAD. Cooperative. HEENT: Normocephalic. Right dialysis catheter site with mild wall erythema, greatly improved from prior per patient. Poor dentition. Pupils are equal and reactive to light. EOMs intact. Vision and hearing grossly intact Pulm: CTAB A&P. -wheezes, -rales, -rhonchi. Symmetrical chest rise. No increased work of breathing. No respiratory distress. Cardiac: Regular rate and rhythm, soft systolic murmur. Radial pulses intact and symmetrical. Mild JVD at the clavicle which increases on HJR. ICD palpable without overlying tenderness/warmth Abdominal: Softly distended. Extremities: S/p left AKA with well-healed surgical site. Right lower extremity s/p amputation of first and second digits. Dependent surfaces with diffuse stasis changes and scaling. Sensation of soft touch intact in hands symmetrically, qualitatively diminished in right lower extremity but intact, and intact in left thigh. PT pulse right intact. Results & Data Results & Data Vital Signs (Past 12 Hours) Vital Signs Temp Pulse Resp BP Pulse Ox O2 Del Method O2 Flow Rate 07/24/22 16:00 72 18 129/91 07/24/22 15:45 73 17 138/84 07/24/22 15:30 72 18 135/91 07/24/22 15:15 71 19 124/81 07/24/22 15:00 73 24 100 Nasal Cannula 6 07/24/22 15:00 121/80 07/24/22 14:45 67 17 100 Nasal Cannula 6 07/24/22 14:45 116/77 07/24/22 14:30 70 18 100 Nasal Cannula 6 07/24/22 14:30 136/80 07/24/22 14:15 72 18 99 Nasal Cannula 6 07/24/22 14:15 130/74 07/24/22 14:01 75 26 H 99 Nasal Cannula 6 07/24/22 14:01 131/74 07/24/22 14:00 75 14 100 Nasal Cannula 6 07/24/22 13:45 74 24 100 Nasal Cannula 6 07/24/22 13:45 134/82 07/24/22 13:30 76 18 99 Nasal Cannula 6 07/24/22 13:30 122/92 07/24/22 13:15 76 21 98 Nasal Cannula 6 07/24/22 13:15 134/83 07/24/22 13:01 79 19 99 07/24/22 13:01 143/76 H 07/24/22 13:00 78 25 H 98 Nasal Cannula 6 07/24/22 12:46 78 23 99 Nasal Cannula 6 07/24/22 12:46 137/77 07/24/22 12:45 78 25 H 07/24/22 12:37 78 19 99 6 07/24/22 12:37 136/86 07/24/22 12:30 78 20 98 6 07/24/22 12:30 139/69 07/24/22 12:15 82 25 H 98 6 07/24/22 12:15 108/81 07/24/22 12:00 81 22 97 Nasal Cannula 6 07/24/22 12:00 130/74 07/24/22 11:45 81 22 99 Nasal Cannula 6 07/24/22 11:45 116/74 07/24/22 11:45 99 Nasal Cannula 6 07/24/22 11:37 82 07/24/22 11:30 82 18 07/24/22 11:30 120/69 07/24/22 11:24 82 19 100 Nasal Cannula 6 07/24/22 11:24 114/71 07/24/22 11:11 110/59 L 07/24/22 11:11 85 18 86 L Nasal Cannula 6 07/24/22 11:09 18 77 L Nasal Cannula 6 07/24/22 11:07 36.5 C 83 18 110/59 L 70 L Room Air PG Care Time/CCT Total # of Minutes Spent Total Time Spent with Patient: Total time spent is greater than 50% in coordination of care (as documented) at patient's floor/unit and/or counseling patient: Coding Level of Care Code 84973 INT INP/OBS CARE MIN Diagnoses Cardiac arrest I46.9 Pulmonary edema J81.0 Chronicity: acute Amputated great toe of left foot Z89.412 Tobacco abuse Z72.0 HTN (hypertension) I10 Dyslipidemia E78.5 DM type 2 (diabetes mellitus, type 2) E11.9 (2) Pulmonary edema Chronicity: acute Qualified Code(s): J81.0 - Acute pulmonary edema
--- NOTE | 2022-07-24 18:02 | Emergency Department Note ---
ED Visit Note This patient was signed out to me at shift change by Dr. Humphreys. The patient had been seen by the admitting team and they were talking to his cardiology as well as our collection card clerk on what to do with him whether he would stay here or go to [facility]. I went and saw the patient is resting comfortably and has no chest pain appears in no distress. According to the hospitalists, the collection card clerk talk together and feel that it is in the patient's best interest to stay here and have a cath tomorrow. The patient will be admitted by the [facility] hospitalist group. .
[2022-07-24] MEDS: HEPARIN SODIUM/DEXTROSE 25,000 UNITS/500 ML BAG IV SCH (19:35)
[2022-07-24] MEDS ORDERED: NITROGLYCERIN SL 0.4 MG/TAB TAB SL PRN (20:04)
[2022-07-24] MEDS ORDERED: GLUCOSE 10 TAB/TUBE PO PRN (20:04)
[2022-07-24] MEDS ORDERED: GLUCAGON FOR INJ 1 MG VIAL SQ PRN (20:04)
[2022-07-24] MEDS ORDERED: CARBOHYDRATES FOR HYPOGLYCEMIA PO PRN (20:04)
[2022-07-24] MEDS ORDERED: GLUCOSE 40% GEL 15 GM TUBE PO PRN (20:04)
[2022-07-24] MEDS ORDERED: BUMETANIDE 1 MG TAB PO SCH (21:00)
[2022-07-24] MEDS ORDERED: LANTUS PER UNIT CHARGE SQ SCH (21:00)
[2022-07-24] MEDS: INSULIN ASPART PER UNIT CHARGE SC SCH (21:26)
[2022-07-24] MEDS: FUROSEMIDE 40 MG/4 ML VIAL IV SCH (21:28)
[2022-07-24] MEDS: ATORVASTATIN 40 MG TAB PO SCH (21:28)
[2022-07-24] MEDS: SERTRALINE HCL 50 MG TABLET PO SCH (21:28)
[2022-07-25 00:45] LABS: Partial Thromboplastin Ratio 1.6
[2022-07-25 01:06] LABS: Partial Thromboplastin Time 44.5 Seconds (21.0-31.0)
[2022-07-25 01:58] LABS: Magnesium 1.9 mg/dl (1.7-2.4)
[2022-07-25 02:13] LABS: Troponin I High Sensitivity 161.7 pg/ml (0-20)
--- NOTE | 2022-07-25 05:03 | Electrocardiogram Report ---
Test Reason : Blood Pressure : / mmHG Vent. Rate : 085 BPM Atrial Rate : 085 BPM P-R Int : 196 ms QRS Dur : 114 ms QT Int : 400 ms P-R-T Axes : 062 033 157 degrees QTc Int : 476 ms Normal sinus rhythm Possible Inferior infarct , age undetermined Anterior infarct , age undetermined Abnormal ECG When compared with ECG of 11-JUN-2016 17:13, Minimal criteria for Anterior infarct are now Present Borderline criteria for Inferior infarct are now Present T wave inversion more evident in Lateral leads Confirmed by Anderson Silva ([id number]) on 07/25/2022 5:03:10 AM Referred By: Confirmed By:Anderson Silva
[2022-07-25] MEDS ORDERED: HEPARIN SOD (PORCINE) 1000 UNIT/ML IV ONE (05:25)
[2022-07-25] MEDS: PANTOprazole 40 MG TAB PO SCH (05:34)
[2022-07-25 06:21] LABS: Partial Thromboplastin Ratio 1.5
[2022-07-25 06:24] LABS: Partial Thromboplastin Time 43.4 Seconds (21.0-31.0)
[2022-07-25] MEDS: HEPARIN SODIUM/DEXTROSE 25,000 UNITS/500 ML BAG IV SCH ×2 (06:48→18:04)
[2022-07-25] MEDS: DEXTROSE 50% 50 ML SYRINGE IV PRN ×2 (06:50→10:23)
[2022-07-25 07:28] LABS: Estimated Average Glucose 171 mg/dl; Hemoglobin A1C 7.6 % (4.5-5.6)
[2022-07-25] MEDS ORDERED: DEXTROSE 10% 1,000 ML IV SCH (08:15)
[2022-07-25] MEDS: FUROSEMIDE 40 MG/4 ML VIAL IV SCH ×2 (08:19→20:08)
[2022-07-25] MEDS: VENLAFAXINE HCL XR 150 MG CAPXR PO SCH (08:20)
[2022-07-25] MEDS: METOPROLOL SUCC 50MG EXT REL TAB PO SCH (08:20)
[2022-07-25] MEDS: TAMSULOSIN HCL 0.4 MG CAP PO SCH (08:20)
[2022-07-25] MEDS: CLOPIDOGREL BISULFATE 75 MG TAB PO SCH (08:25)
[2022-07-25] MEDS: INSULIN ASPART PER UNIT CHARGE SC SCH ×4 (08:37→20:03)
[2022-07-25] MEDS ORDERED: LANTUS PER UNIT CHARGE SQ SCH (09:00)
[2022-07-25] MEDS ORDERED: levoFLOXacin 750 MG TAB PO SCH (09:00)
[2022-07-25 09:04] LABS: Hematocrit (blood only) 27.3 % (42.0-52.0); Hemoglobin 8.1 g/dl (14.0-18.0); Mean Corpuscular Hemoglobin 27.7 pg (25.0-34.0); Mean Corpuscular Hgb Conc 29.7 g/dL (32.0-36.0); Mean Corpuscular Volume 93.5 fL (80.0-100.0); Mean Platelet Volume 10.6 fL (9.4-12.4); Platelet Count 190 K/uL (130-400); RDW Coefficient of Variation 18.2 % (11.5-14.5); RDW Standard Deviation 61.8 fL (36.4-46.3); Red Blood Count 2.92 M/uL (4.70-6.10)
--- NOTE | 2022-07-25 10:36 | Nephrology Consultation ---
Date of Consultation July 25, 2022 Assessment & Plan (1) Chronic kidney disease: Maintained on IHD TTS at [facility]. Started HD ~2 weeks ago. The patient was told that dialysis was for JEWEL on advanced CKD. He was admitted to the dialysis unit as ESRD. He remains non-oliguric. History is notable for notable fluid retention and difficult to manage volume status. IDWG has been high consistently. Chris typically tolerates dialysis and UF well. Outpatient Rx is 4.5 hours on a F-180, Qb 400, Qd 800, 2K 2.5 Ca HCO3 35. EDW 138 kg. Heparin 2000 bolus and 1000 per hour. Medications are currently appropriately dosed for kidney dysfunction. Volume status is acceptable. Electrolytes normal per admission labs. Repeat blood work pending this morning. Next anticipated dialysis will be arranged for tomorrow. (2) Hemodialysis status: Renal diet. Continue Fosrenol 50 mg TIDM for hyperphosphatemia. 1.2 L daily fluid restriction. TDC care to be provided by sewing machine operator zipper. (3) Anemia: Chronic. Outpatient Hgb 9.3 on the . Maintained on Micera 75 q 2 weeks as outpatient. Receiving IV iron loading at dialysis currently. Check iron profile and repeat H/H with AM labs. Epogen and venofer will be provided with HD. (4) Cardiac arrest: Cardiology consultation pending. History reviewed. Possible catheterization anticipated today. History of Present Illness Reason for Consultation: ESRD Requesting Physician: Daryn May MD Attending Physician: Daryn May MD History of Present Illness Mr. Chris Yarbrough is a 57 year-old male with morbid obesity, diabetes mellitus, dyslipidemia, coronary artery disease, atrial fibrillation, PAD, and chronic kidney disease. Chris has been maintained on hemodialysis at [facility] under the care of Dr. Nesbitt. Chris followed with Dr. Estrella for CKD prior to starting dialysis. I met with Chris in the ICU this morning and spoke to his daughter (Ann) by phone. I also discussed the patient's history with staff at [facility]. The patient and his daughter both report being told that Chris was starting dialysis for acute on chronic kidney dysfunction. Staff at the dialysis unit report that the patient was admitted as ESRD. Chris was known to have advanced kidney dysfunction prior to [facility]. He had presented to [facility] with a nose bleed and was reportedly admitted with anemia and acute on chronic kidney dysfunction. TDC was placed and dialysis started during the admission. He has not had AVF or graft placement. Chris remains non-oliguric but unfortunately continues to struggle with large IDWG. Volume management has been a notable concern for several months. In February, Chris was admitted to Critical [facility] hospital with an infection involving a toe on the right foot. The toe required amputation and he has been following with wound care during recovery. Chris reports that edema in the leg had slowed the recovery process. He states that this is improving and he feels the surgical site is now well healed. He unfortunately was recently diagnosed with recurrent cellulitis of the lower extremity and started a course of levofloxacin 2 days ago. Chris was otherwise feeling well and presented to dialysis yesterday without complaints. He was 3.2 g above EDW. Treatment was started and Chris reports that he went to sleep. ~20 minutes after treatment started, he became acutely unresponsive and pulseless per report from staff at [facility]. CPR was started and continued for ~15 minutes. AED was placed but no shock advised. Chris does have an ICD. Epinephrine and atropine were ad ministered with [facility]. Chris was awake and conversant when he left the dialysis unit via EMS. He presented to the ER at [facility] and has been hemodynamically stable on monitor in the ICU overnight. He feels well today. He denies chest pain, palpitations, or shortness of breath. Allergies Allergy/AdvReac Type Severity Reaction Status Date / Time No Known Allergies Allergy Mild * Verified 07/24/22 14:50 Home Medications Medication Instructions Recorded Confirmed Type Lactobacillus acidophilus-pectin 1 tab PO DAILY 07/24/22 07/24/22 History 30 mg-20 mg tablet acetaminophen 325 mg tablet 650 mg PO Q4H PRN PAIN/FEVER 07/24/22 07/24/22 History (Tylenol) apixaban 5 mg tablet (Eliquis) 5 mg PO BID 07/24/22 07/24/22 History atorvastatin 80 mg tablet 80 mg PO HS 07/24/22 07/24/22 History bumetanide 1 mg tablet 2 mg PO BID 07/24/22 07/24/22 History cholecalciferol (vitamin D3) 50 50 mcg PO DAILY 07/24/22 07/24/22 History mcg (2,000 unit) capsule (Vitamin D3) clopidogrel 75 mg tablet 75 mg PO DAILY 07/24/22 07/24/22 History fenofibrate 160 mg tablet 160 mg PO HS 07/24/22 07/24/22 History gabapentin 100 mg capsule 100 mg PO BID 07/24/22 07/24/22 History insulin aspart U-100 100 unit/mL 15 unit subcut TIDM 07/24/22 07/24/22 History (3 mL) subcutaneous pen (Novolog FlexPen U-100 Insulin aspart) insulin glargine 100 unit/mL (3 0 unit subcut QAM 07/24/22 07/24/22 History mL) subcutaneous pen (Basaglar KwikPen U-100 Insulin) lanthanum 750 mg chewable tablet 750 mg PO TIDM 07/24/22 07/24/22 History (Fosrenol) levofloxacin 250 mg tablet 500 mg PO DAILY 07/24/22 07/24/22 History metoprolol succinate 100 mg 100 mg PO DAILY 07/24/22 07/24/22 History tablet,extended release 24 hr pantoprazole 40 mg tablet,delayed 40 mg PO DAILYBB 07/24/22 07/24/22 History release sertraline 50 mg tablet 50 mg PO HS 07/24/22 07/24/22 History tamsulosin 0.4 mg capsule 0.4 mg PO DAILY 07/24/22 07/24/22 History venlafaxine 150 mg 150 mg PO DAILY 07/24/22 07/24/22 History capsule,extended release 24 hr vitamin B complex-vitamin C-folic 1 tab PO DAILY 07/24/22 07/24/22 History acid 0.8 mg tablet (Nephro-Shaan) Patient History Medical History Amputated great toe of left foot "due to osteomyelitis/diabetic ulcer" Dialysis patient DM type 2 (diabetes mellitus, type 2) Dyslipidemia End stage renal disease HTN (hypertension) Tobacco abuse Social History Smoking Status: Current every day smoker Cigarettes Per Day: 1/2 pack; Hx Alcohol Use: Yes Alcohol type: beer and hard liquor Hx Substance Use: No Preferred Language: Greek Communication Ability: Effective Corsets Salesperson Required: No Beliefs That Will Affect Care: None Current Living Situation: Family Current Living Situation Comment: lives with daughter Other Information That Helps Us Care for You: No Feels Safe at Home: Yes Safety Concerns: Feels Safe At This Time Assistive Devices: Oxygen - at Night and Wheelchair Review of Systems Review of Systems: All systems reviewed & are unremarkable except as noted in HPI & below Physical Exam Constitutional: well developed and + morbidly obese; no acute distress Eyes: + anicteric sclerae ENMT: Mouth: no oral mucosal abnormality and oral mucous membranes not dry Neck: normal visual inspection, trachea midline and + thick neck RIJ TDC Respiratory: normal respiratory effort Auscultation: lungs clear to auscultation bilaterally and + rales (few at right base) Cardiovascular: Rate/Rhythm: regular rate Heart Sounds: normal S1 and normal S2 Extremities: + edema and + varicosities Musculoskeletal: Extremities: no cyanosis and no clubbing Skin: normal turgor; no jaundice Neurologic: Motor/Sensory: no tremor and no asterixis Psychiatric: Orientation: alert and oriented x 3 Results & Data Vital Signs (Past 12 Hours) Vital Signs Temp Pulse Pulse Resp BP BP Pulse Ox 07/25/22 09:00 74 19 99 07/25/22 09:00 142/90 H 07/25/22 08:00 71 24 97 07/25/22 08:00 134/80 07/25/22 07:00 72 21 98 07/25/22 07:00 114/78 07/25/22 08:00 69 07/25/22 07:25 07/25/22 03:00 115/73 07/25/22 03:00 67 25 H 97 07/25/22 02:00 69 23 95 07/25/22 02:00 125/79 07/25/22 01:00 112/72 07/25/22 01:00 70 22 97 07/25/22 00:00 67 19 95 07/25/22 00:00 104/65 07/24/22 23:53 112/70 07/24/22 23:53 66 19 98 07/24/22 23:00 111/68 07/24/22 23:00 67 19 99 07/25/22 03:00 36.7 C 07/25/22 02:22 67 07/24/22 23:54 36.5 C 68 19 112/70 99 07/24/22 22:42 O2 Del Method O2 Del Method O2 Flow Rate O2 Flow Rate 07/25/22 09:00 07/25/22 09:00 07/25/22 08:00 07/25/22 08:00 07/25/22 07:00 07/25/22 07:00 07/25/22 08:00 07/25/22 07:25 Nasal Cannula 2 07/25/22 03:00 07/25/22 03:00 07/25/22 02:00 07/25/22 02:00 07/25/22 01:00 07/25/22 01:00 07/25/22 00:00 07/25/22 00:00 07/24/22 23:53 07/24/22 23:53 07/24/22 23:00 07/24/22 23:00 07/25/22 03:00 07/25/22 02:22 07/24/22 23:54 Nasal Cannula 2 07/24/22 22:42 Nasal Cannula 2 Laboratory Results Laboratory Results - last 24 hr 07/24/22 07/24/22 07/24/22 11:20 11:20 11:20 WBC 8.46 RBC 3.09 L Hgb 8.5 L Hct 28.0 L MCV 90.6 MCH 27.5 MCHC 30.4 L RDW Std Deviation 60.1 H RDW Coeff of Desiree 18.4 H Plt Count 205 MPV 10.2 Immature Gran % (Auto) 0.5 Neut % (Auto) 81.9 Lymph % (Auto) 5.6 Nicollet % (Auto) 5.8 Eos % (Auto) 5.6 Baso % (Auto) 0.6 Neut # (Auto) 6.94 H Lymph # (Auto) 0.47 L Nicollet # (Auto) 0.49 Eos # (Auto) 0.47 Baso # (Auto) 0.05 Immature Gran # (Auto) 0.04 PT 12.4 H INR 1.1 APTT 28.3 PTT Ratio 1.0 VBG pH VBG pCO2 VBG pO2 VBG HCO3 VBG O2 Saturation VBG Base Excess Sodium 138 Potassium 4.6 Chloride 104 Carbon Dioxide 31 Anion Gap 3 BUN 61 H Creatinine 2.84 H Est Cr Clr Drug Dosing 44.4 Est GFR ( Amer) 27.3 Est GFR (Non-Af Amer) 23.5 BUN/Creatinine Ratio 21.5 H Glucose 183 H POC Glucose Estimat Average Glucose Hemoglobin A1c Lactate Calcium 8.2 L Magnesium Total Bilirubin 0.3 AST 35 ALT 17 Alkaline Phosphatase 50 Troponin I High Sens 98.0 H* C-Reactive Protein 4.45 H Total Protein 6.5 Albumin 2.8 L Globulin 3.7 Albumin/Globulin Ratio 0.8 L Lipase 12 Vitamin B12 Folate Procalcitonin Nasal Screen MRSA (PCR) SARS-CoV-2, RNA, NAAT 07/24/22 07/24/22 07/24/22 11:20 11:20 11:23 WBC RBC Hgb Hct MCV MCH MCHC RDW Std Deviation RDW Coeff of Desiree Plt Count MPV Immature Gran % (Auto) Neut % (Auto) Lymph % (Auto) Nicollet % (Auto) Eos % (Auto) Baso % (Auto) Neut # (Auto) Lymph # (Auto) Nicollet # (Auto) Eos # (Auto) Baso # (Auto) Immature Gran # (Auto) PT INR APTT PTT Ratio VBG pH 7.35 L VBG pCO2 52 H VBG pO2 186 VBG HCO3 29 VBG O2 Saturation 97.7 VBG Base Excess 2.1 Sodium Potassium Chloride Carbon Dioxide Anion Gap BUN Creatinine Est Cr Clr Drug Dosing Est GFR ( Amer) Est GFR (Non-Af Amer) BUN/Creatinine Ratio Glucose POC Glucose Estimat Average Glucose Hemoglobin A1c Lactate 0.9 Calcium Magnesium Total Bilirubin AST ALT Alkaline Phosphatase Troponin I High Sens C-Reactive Protein Total Protein Albumin Globulin Albumin/Globulin Ratio Lipase Vitamin B12 Folate Procalcitonin 0.11 Nasal Screen MRSA (PCR) SARS-CoV-2, RNA, NAAT 07/24/22 07/24/22 07/24/22 11:24 15:47 20:11 WBC RBC Hgb Hct MCV MCH MCHC RDW Std Deviation RDW Coeff of Desiree Plt Count MPV Immature Gran % (Auto) Neut % (Auto) Lymph % (Auto) Nicollet % (Auto) Eos % (Auto) Baso % (Auto) Neut # (Auto) Lymph # (Auto) Nicollet # (Auto) Eos # (Auto) Baso # (Auto) Immature Gran # (Auto) PT INR APTT PTT Ratio VBG pH VBG pCO2 VBG pO2 VBG HCO3 VBG O2 Saturation VBG Base Excess Sodium Potassium Chloride Carbon Dioxide Anion Gap BUN Creatinine Est Cr Clr Drug Dosing Est GFR ( Amer) Est GFR (Non-Af Amer) BUN/Creatinine Ratio Glucose POC Glucose 117 H Estimat Average Glucose Hemoglobin A1c Lactate Calcium Magnesium Total Bilirubin AST ALT Alkaline Phosphatase Troponin I High Sens 211.1 H* D C-Reactive Protein Total Protein Albumin Globulin Albumin/Globulin Ratio Lipase Vitamin B12 Folate Procalcitonin Nasal Screen MRSA (PCR) SARS-CoV-2, RNA, NAAT NEGATIVE 07/24/22 07/24/22 07/25/22 23:49 Unknown 01:17 WBC RBC Hgb Hct MCV MCH MCHC RDW Std Deviation RDW Coeff of Desiree Plt Count MPV Immature Gran % (Auto) Neut % (Auto) Lymph % (Auto) Nicollet % (Auto) Eos % (Auto) Baso % (Auto) Neut # (Auto) Lymph # (Auto) Nicollet # (Auto) Eos # (Auto) Baso # (Auto) Immature Gran # (Auto) PT INR APTT 44.5 H* PTT Ratio 1.6 VBG pH VBG pCO2 VBG pO2 VBG HCO3 VBG O2 Saturation VBG Base Excess Sodium Potassium Chloride Carbon Dioxide Anion Gap BUN Creatinine Est Cr Clr Drug Dosing Est GFR ( Amer) Est GFR (Non-Af Amer) BUN/Creatinine Ratio Glucose POC Glucose Estimat Average Glucose Hemoglobin A1c Lactate Calcium Magnesium 1.9 Total Bilirubin AST ALT Alkaline Phosphatase Troponin I High Sens 161.7 H* D C-Reactive Protein Total Protein Albumin Globulin Albumin/Globulin Ratio Lipase Vitamin B12 Folate Procalcitonin Nasal Screen MRSA (PCR) Positive A SARS-CoV-2, RNA, NAAT 07/25/22 07/25/22 07/25/22 01:17 05:28 06:42 WBC RBC Hgb Hct MCV MCH MCHC RDW Std Deviation RDW Coeff of Desiree Plt Count MPV Immature Gran % (Auto) Neut % (Auto) Lymph % (Auto) Nicollet % (Auto) Eos % (Auto) Baso % (Auto) Neut # (Auto) Lymph # (Auto) Nicollet # (Auto) Eos # (Auto) Baso # (Auto) Immature Gran # (Auto) PT INR APTT 43.4 H* PTT Ratio 1.5 VBG pH VBG pCO2 VBG pO2 VBG HCO3 VBG O2 Saturation VBG Base Excess Sodium Potassium Chloride Carbon Dioxide Anion Gap BUN Creatinine Est Cr Clr Drug Dosing Est GFR ( Amer) Est GFR (Non-Af Amer) BUN/Creatinine Ratio Glucose POC Glucose 51 L* Estimat Average Glucose 171 Hemoglobin A1c 7.6 H Lactate Calcium Magnesium Total Bilirubin AST ALT Alkaline Phosphatase Troponin I High Sens C-Reactive Protein Total Protein Albumin Globulin Albumin/Globulin Ratio Lipase Vitamin B12 Folate Procalcitonin Nasal Screen MRSA (PCR) SARS-CoV-2, RNA, NAAT 07/25/22 07/25/22 07/25/22 06:43 06:48 07:06 WBC RBC Hgb Hct MCV MCH MCHC RDW Std Deviation RDW Coeff of Desiree Plt Count MPV Immature Gran % (Auto) Neut % (Auto) Lymph % (Auto) Nicollet % (Auto) Eos % (Auto) Baso % (Auto) Neut # (Auto) Lymph # (Auto) Nicollet # (Auto) Eos # (Auto) Baso # (Auto) Immature Gran # (Auto) PT INR APTT PTT Ratio VBG pH VBG pCO2 VBG pO2 VBG HCO3 VBG O2 Saturation VBG Base Excess Sodium Potassium Chloride Carbon Dioxide Anion Gap BUN Creatinine Est Cr Clr Drug Dosing Est GFR ( Amer) Est GFR (Non-Af Amer) BUN/Creatinine Ratio Glucose POC Glucose 68 L* 88 Estimat Average Glucose Hemoglobin A1c Lactate Calcium Magnesium Total Bilirubin AST ALT Alkaline Phosphatase Troponin I High Sens 149.7 H* C-Reactive Protein Total Protein Albumin Globulin Albumin/Globulin Ratio Lipase Vitamin B12 Folate Procalcitonin Nasal Screen MRSA (PCR) SARS-CoV-2, RNA, NAAT 07/25/22 07/25/22 07/25/22 07:21 07:57 08:08 WBC 5.50 RBC 2.92 L Hgb 8.1 L Hct 27.3 L MCV 93.5 MCH 27.7 MCHC 29.7 L RDW Std Deviation 61.8 H RDW Coeff of Desiree 18.2 H Plt Count 190 MPV 10.6 Immature Gran % (Auto) Neut % (Auto) Lymph % (Auto) Nicollet % (Auto) Eos % (Auto) Baso % (Auto) Neut # (Auto) Lymph # (Auto) Nicollet # (Auto) Eos # (Auto) Baso # (Auto) Immature Gran # (Auto) PT INR APTT PTT Ratio VBG pH VBG pCO2 VBG pO2 VBG HCO3 VBG O2 Saturation VBG Base Excess Sodium Potassium Chloride Carbon Dioxide Anion Gap BUN Creatinine Est Cr Clr Drug Dosing Est GFR ( Amer) Est GFR (Non-Af Amer) BUN/Creatinine Ratio Glucose POC Glucose 79 73 Estimat Average Glucose Hemoglobin A1c Lactate Calcium Magnesium Total Bilirubin AST ALT Alkaline Phosphatase Troponin I High Sens C-Reactive Protein Total Protein Albumin Globulin Albumin/Globulin Ratio Lipase Vitamin B12 Folate Procalcitonin Nasal Screen MRSA (PCR) SARS-CoV-2, RNA, NAAT 07/25/22 07/25/22 07/25/22 08:08 09:14 10:06 WBC RBC Hgb Hct MCV MCH MCHC RDW Std Deviation RDW Coeff of Desiree Plt Count MPV Immature Gran % (Auto) Neut % (Auto) Lymph % (Auto) Nicollet % (Auto) Eos % (Auto) Baso % (Auto) Neut # (Auto) Lymph # (Auto) Nicollet # (Auto) Eos # (Auto) Baso # (Auto) Immature Gran # (Auto) PT INR APTT PTT Ratio VBG pH VBG pCO2 VBG pO2 VBG HCO3 VBG O2 Saturation VBG Base Excess Sodium Potassium Chloride Carbon Dioxide Anion Gap BUN Creatinine Est Cr Clr Drug Dosing Est GFR ( Amer) Est GFR (Non-Af Amer) BUN/Creatinine Ratio Glucose POC Glucose 71 68 L* Estimat Average Glucose Hemoglobin A1c Lactate Calcium Magnesium Total Bilirubin AST ALT Alkaline Phosphatase Troponin I High Sens C-Reactive Protein Total Protein Albumin Globulin Albumin/Globulin Ratio Lipase Vitamin B12 441 Folate 13.29 Procalcitonin Nasal Screen MRSA (PCR) SARS-CoV-2, RNA, NAAT 07/25/22 07/25/22 10:09 10:32 WBC RBC Hgb Hct MCV MCH MCHC RDW Std Deviation RDW Coeff of Desiree Plt Count MPV Immature Gran % (Auto) Neut % (Auto) Lymph % (Auto) Nicollet % (Auto) Eos % (Auto) Baso % (Auto) Neut # (Auto) Lymph # (Auto) Nicollet # (Auto) Eos # (Auto) Baso # (Auto) Immature Gran # (Auto) PT INR APTT PTT Ratio VBG pH VBG pCO2 VBG pO2 VBG HCO3 VBG O2 Saturation VBG Base Excess Sodium Potassium Chloride Carbon Dioxide Anion Gap BUN Creatinine Est Cr Clr Drug Dosing Est GFR ( Amer) Est GFR (Non-Af Amer) BUN/Creatinine Ratio Glucose POC Glucose 68 L* 101 H Estimat Average Glucose Hemoglobin A1c Lactate Calcium Magnesium Total Bilirubin AST ALT Alkaline Phosphatase Troponin I High Sens C-Reactive Protein Total Protein Albumin Globulin Albumin/Globulin Ratio Lipase Vitamin B12 Folate Procalcitonin Nasal Screen MRSA (PCR) SARS-CoV-2, RNA, NAAT Diagnostic Findings XR chest 1V portable FINDINGS: There are low lung volumes. The heart is enlarged. No pneumothorax. No significant pleural effusion. Interstitial/vascular thickening consistent with moderate pulmonary edema. There are poststernotomy changes and a left-sided pacemaker. Right jugular central venous catheter terminates at the distal SVC. IMPRESSION: Cardiomegaly with moderate pulmonary edema. PG Care Time/CCT Total # of Minutes Spent Total Time Spent with Patient: Total time spent is greater than 50% in coordination of care (as documented) at patient's floor/unit and/or counseling patient: Coding Level of Care Code 02146 IN/OBS CONSULT LVL 4,60M Diagnoses Chronic kidney disease N18.9 Hemodialysis status Z99.2 Anemia D64.9 Anemia type: unspecified type Cardiac arrest I46.9 (3) Anemia Anemia type: unspecified type Qualified Code(s): D64.9 - Anemia, unspecified
--- NOTE | 2022-07-25 12:12 | XCELERA ---
[id number]
[2022-07-25] MEDS ORDERED: MIDAZOLAM HCL 1 MG/ML 2ML VIAL ONE (12:44)
[2022-07-25] MEDS ORDERED: fentaNYL citrate PF 100 MCG/2 ML VIAL ONE (12:44)
[2022-07-25] MEDS ORDERED: HEPARIN (PORCINE) 1000 UNIT/ML 10 ML (CATH LAB USE ONLY) ONE (12:44)
[2022-07-25] MEDS ORDERED: NITROGLYCERIN/D5W 100MCG/ML 20ML SYR ONE (12:45)
--- NOTE | 2022-07-25 14:02 | Post Anesthesia Assessment ---
Date of Service July 25, 2022 Post Sedation Assessment Vital Signs Temp Pulse Pulse Resp BP BP Pulse Ox 07/25/22 12:35 74 20 139/82 99 07/25/22 11:00 72 22 95 07/25/22 11:00 100/59 L 07/25/22 10:00 72 21 98 07/25/22 10:00 118/74 07/25/22 09:00 74 19 99 07/25/22 09:00 142/90 H 07/25/22 08:00 71 24 97 07/25/22 08:00 134/80 07/25/22 07:00 72 21 98 07/25/22 07:00 114/78 07/25/22 08:00 69 07/25/22 07:25 07/25/22 03:00 115/73 07/25/22 03:00 67 25 H 97 07/25/22 02:00 69 23 95 07/25/22 02:00 125/79 07/25/22 01:00 112/72 07/25/22 01:00 70 22 97 07/25/22 00:00 67 19 95 07/25/22 00:00 104/65 07/24/22 23:53 112/70 07/24/22 23:53 66 19 98 07/24/22 23:00 111/68 07/24/22 23:00 67 19 99 07/24/22 22:27 66 20 97 07/24/22 22:27 107/67 07/24/22 22:01 69 21 97 07/24/22 22:00 71 22 98 07/25/22 03:00 98.1 F 07/25/22 02:22 67 07/24/22 23:54 97.7 F 68 19 112/70 99 07/24/22 22:42 07/24/22 22:17 07/24/22 21:00 78 16 96 07/24/22 21:00 131/77 07/24/22 20:02 146/90 H 07/24/22 20:02 73 23 99 07/24/22 20:00 72 21 100 07/24/22 19:37 75 12 07/24/22 19:37 113/87 07/24/22 20:09 97.9 F 75 16 113/87 100 07/24/22 20:05 07/24/22 19:23 61 16 116/71 100 07/24/22 18:45 61 16 116/71 100 07/24/22 18:30 63 15 129/71 100 07/24/22 18:01 70 17 100 07/24/22 18:00 71 18 124/86 100 07/24/22 17:45 71 23 07/24/22 17:30 68 22 128/83 100 07/24/22 17:15 69 27 H 140/85 07/24/22 17:00 72 15 125/86 07/24/22 16:45 71 18 141/81 H 07/24/22 16:30 69 16 135/79 07/24/22 16:15 71 23 133/83 07/24/22 16:00 72 18 129/91 07/24/22 15:45 73 17 138/84 07/24/22 15:30 72 18 135/91 07/24/22 15:15 71 19 124/81 07/24/22 15:00 73 24 100 07/24/22 15:00 121/80 07/24/22 14:45 67 17 100 07/24/22 14:45 116/77 07/24/22 14:30 70 18 100 07/24/22 14:30 136/80 07/24/22 14:15 72 18 99 07/24/22 14:15 130/74 O2 Del Method O2 Del Method O2 Flow Rate O2 Flow Rate 07/25/22 12:35 Nasal Cannula 2 07/25/22 11:00 07/25/22 11:00 07/25/22 10:00 07/25/22 10:00 07/25/22 09:00 07/25/22 09:00 07/25/22 08:00 07/25/22 08:00 07/25/22 07:00 07/25/22 07:00 07/25/22 08:00 07/25/22 07:25 Nasal Cannula 2 07/25/22 03:00 07/25/22 03:00 07/25/22 02:00 07/25/22 02:00 07/25/22 01:00 07/25/22 01:00 07/25/22 00:00 07/25/22 00:00 07/24/22 23:53 07/24/22 23:53 07/24/22 23:00 07/24/22 23:00 07/24/22 22:27 07/24/22 22:27 07/24/22 22:01 07/24/22 22:00 07/25/22 03:00 07/25/22 02:22 07/24/22 23:54 Nasal Cannula 2 07/24/22 22:42 Nasal Cannula 2 07/24/22 22:17 Nasal Cannula 07/24/22 21:00 07/24/22 21:00 07/24/22 20:02 07/24/22 20:02 07/24/22 20:00 07/24/22 19:37 07/24/22 19:37 07/24/22 20:09 Nasal Cannula 6 07/24/22 20:05 Nasal Cannula 4 07/24/22 19:23 Room Air 07/24/22 18:45 Nasal Cannula 5 07/24/22 18:30 Nasal Cannula 5 07/24/22 18:01 07/24/22 18:00 07/24/22 17:45 07/24/22 17:30 07/24/22 17:15 07/24/22 17:00 07/24/22 16:45 07/24/22 16:30 07/24/22 16:15 07/24/22 16:00 07/24/22 15:45 07/24/22 15:30 07/24/22 15:15 07/24/22 15:00 Nasal Cannula 6 07/24/22 15:00 07/24/22 14:45 Nasal Cannula 6 07/24/22 14:45 07/24/22 14:30 Nasal Cannula 6 07/24/22 14:30 07/24/22 14:15 Nasal Cannula 6 07/24/22 14:15 Recovery Score Activity: Moves 4 extremities Respiration: Deep Breath/Cough Circulation: +/-20% PreAnes Value Consciousness: Fully Awake Oxygen Saturation: O2 needed for >90% Discharge Sedation Level of Care: Fast Track Phase II Post Sedation Plan On clinical assessment, the patient appears to have tolerated the sedation without complications. Patient is recovering as anticipated. Patient will continue to be monitored by nursing and may be discharged when sedation discharge criteria are met per below protocol. Upon Completions of procedure up to 15 minutes continue every 5 minute vital signs and the P.A.R. score; then discharge to a Phase I or Fast Track to Phase II per the following guidelines: * Discharge Patient to appropriate Phase II area if PAR is 8 or greater or return to pre- procedure baseline. The post - procedure orders will be as directed. * If PAR score is less than 8 or not return to pre-procedure baseline then patient will follow Phase I monitoring till PAR is reached for Phase II. The Phase I may be done in procedure room or may call to secure a Phase I area. * If naloxone or flumazenil are used for reversal, hold in Phase I for continued monitoring from when last reversal dose was given for a minimum of 60 minutes or longer pending the nurse and/or physician discretion of patient condition before discharge to Phase II. Please call the Sedation Physician to re-evaluate and complete post-note for discharge to Phase II area. Do NOT discharge from procedure sedation or Phase 1 until post- sedation evaluation note is complete by procedure /sedation MD Sedation Discharge Instructions to be given to the patient at discharge to home.
--- NOTE | 2022-07-25 14:13 | Cardiac Catheterization ---
[facility] Data: House Player Cardiac Status Clinical evaluation leading to the procedure CAD Presenation: Non STEMI Anginal Classification: CCS IV Diagnostic Physicians Name: Harshad Goyal MD Closure Device Recommendations: Medical Therapy and/or Counseling Cardiac Cath Procedure Full Procedure Date July 25, 2022 Pre-Procedure Diagnosis Pre-Procedure Diagnosis: Non STEMI and Cardiothoracic Symptom (Reported out of hospital cardiac arrest) AUC Score AUC Score: 7 Post-Procedure Diagnosis Post-Procedure Diagnosis: Severe CAD and Elevated Intracardiac Pressures Procedure(s) Performed Procedure(s) Performed: Coronary Angiography, Left Heart Cath, Ultrasound Guided Vascular Access and Bypass Graft Angiography English Composition Teacher Harshad Goyal MD Hot Die Press Feeder(s) Showers Estimated Blood Loss Estimated Blood Loss: 10 Medication(s) Medication(s): Fentanyl, Heparin, Lidocaine 1%, Nicardipine, Nitroglycerin and Versed Summary of Findings Indication: Reported brief out of hospital cardiac arrest at dialysis with reported transient ST changes and minimal HS TropI elevation. History of CAD post three-vessel CABG. Prior reported cath in 2020 with patent RESENDEZ to LAD and otherwise occluded grafts. Access: 6 Fr left radial artery under ultrasound guidance Catheters: JR4, JL 3.5, [place], pigtail Findings: LM -heavily calcified, medium caliber, 60-70% distal stenosis LAD -medium caliber, heavily calcified, proximal segment ectatic, diffuse mid segment disease up to 80%. Bifurcating D1, D2 with diffuse disease. Competitive flow in mid LAD at takeoff of small D3. Circumflex -100% proximal chronic total occlusion. OM fills partially retrograde via left to left collaterals RCA -dominant, medium caliber, calcified, diffuse mild to moderate proximal/mid disease. Chronic subtotal occlusion in mid segment after takeoff of acute marginal. COMPA I flow in distal RCA. RESENDEZ to LADlarge caliber, widely patent. Mid to distal LAD after anastomosis widely patent and wraps around apex. LAD provides collaterals to left posterior lateral branch. Vein graftsknown to be occluded LVEDP -35 Arterial Closure: TR band Summary: 1. Severe chronic tetlin multivessel coronary artery disease -Calcified 60-70% distal left main Diffuse severe mid LAD disease up to 80%. Patent D1, D2 with diffuse disease. 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 RESENDEZ to LAD widely patent. Distal LAD after anastomosis without significant disease. 3. Vein grafts known to be occluded 4. Elevated intracardiac filling pressure (LVEDP 35) Recommendations: No acute, high risk disease to explain patient's out of hospital cardiac arrest. Continue current antianginal therapy/ASCVD risk factor modification Volume removal with dialysis Hemodynamics Rest Ao:: 131/85/109 Final Ao: 138/81/105 LV: 138/35 Recommendations Recommendations: Medical Therapy and/or Counseling Specimens Specimens: None Radiation Exposure (mGy) 1954 Contrast (mls) 70 Anesthesia Moderate [id number] Procedural Complication(s) None Disposition PCU I attest to the content of the Intraoperative Record and any orders documented therein. Any exceptions are noted below. [facility] Card Cath Procedure Codes Cardiac Catheterization Procedure 1: Cardiovascular Cath Procedures: 05550 Coronaries & LHC (+/-LV) & Grafts/IM (arterial & venous) Therapeutic Services & Ancillary Procedure 1: Cardiovascular Tx and Anc Procedures: 30017 Ultrasonic Guidance Vascular Access Moderate Sedation Procedure 1: Sedation/Anesthesia: 77435 Mod Sedation by the same physician;Init15 Min Child Age 5 & Up Procedure 2: Sedation/Anesthesia: 53140 Mod Sedation by the same physician; Ea [id number] Minutes PG Care Time/CCT Total # of Minutes Spent Total Time Spent with Patient: Total time spent is greater than 50% in coordination of care (as documented) at patient's floor/unit and/or counseling patient:
--- NOTE | 2022-07-25 14:52 | Cardiology Consultation ---
Date of Consultation July 25, 2022 Assessment & Plan (1) Cardiac arrest: 2. Coronary artery diseasepost three-vessel CABG with occluded vein graft and patent RESENDEZ to LAD 3. Ischemic cardiomyopathy 4. End-stage renal disease on HD 5. Hypervolemia 6. Insulin-dependent type 2 diabetes 7. Anemia Patient underwent cardiac catheterization this afternoon which showed a widely patent RESENDEZ to LAD. Has chronic severe multivessel CAD but no acute high risk lesions to explain presenting event. Suspect minimal HS TropI secondary to demand in the setting of chronic CAD/CKD. Review of device interrogation shows no significant arrhythmia. Overall relatively low suspicion presentation secondary to acute cardiac event/arrest. Event seems more consistent with transient hypotension with unresponsiveness, syncope. Do not feel needs additional cardiac testing/procedures at this time. Patient remains volume overloaded and is nonoliguric. Continue current diuretics while awaiting HD. Okay to discontinue heparin from a cardiac standpoint. Previously on Eliquis, unclear indication. Continue clopidogrel, statin and beta-wesley. We will follow from a distance. Please contact as questions arise. Long-term follow-up with his cardiology team at [facility]. History of Present Illness Attending Physician: Daryn May MD History of Present Illness Mr. Yarbrough is a 57-year-old man with a history of coronary artery disease post three-vessel bypass surgery, end-stage renal disease recently started on dialysis who was admitted yesterday after out of hospital cardiac arrest. Patient has received all of his prior cardiac care at [facility]. Per report had a cardiac cath in 2020 which showed a patent RESENDEZ to LAD but reportedly occluded vein grafts. Reported history of ischemic cardiomyopathy EF 25% post ICD. He has a history of poorly controlled diabetes complicated by neuropathy/nephropathy and recurrent DFU's (post first/second toe amputation, left AKA), hypertension, dyslipidemia, prior tobacco abuse. Per report from hospital medicine team yesterday patient was at dialysis and had PEA arrest lasting 30 to 60 seconds which received epi, atropine and CPR before ROSC. Soon after back at baseline without chest pain. Per report initial ECG showed possible inferior/lateral ST depressions (unavailable for review). Patient denies any preceding symptoms. Some reports of preceding hypotension Transferred to [facility] ED. Initial ECG showed sinus rhythm without significant ST abnormalities. HS TropI minimally elevated and trended up to 200. Since admission has remained asymptomatic. Electrically stable on telemetry. Echo with EF of 30 to 35% with apical and lateral/inferolateral wall motion abnormality. RV mildly dilated, dilated IVC. Allergies Allergy/AdvReac Type Severity Reaction Status Date / Time No Known Allergies Allergy Mild * Verified 07/24/22 14:50 Home Medications Medication Instructions Recorded Confirmed Type Lactobacillus acidophilus-pectin 1 tab PO DAILY 07/24/22 07/24/22 History 30 mg-20 mg tablet acetaminophen 325 mg tablet 650 mg PO Q4H PRN PAIN/FEVER 07/24/22 07/24/22 History (Tylenol) apixaban 5 mg tablet (Eliquis) 5 mg PO BID 07/24/22 07/24/22 History atorvastatin 80 mg tablet 80 mg PO HS 07/24/22 07/24/22 History bumetanide 1 mg tablet 2 mg PO BID 07/24/22 07/24/22 History cholecalciferol (vitamin D3) 50 50 mcg PO DAILY 07/24/22 07/24/22 History mcg (2,000 unit) capsule (Vitamin D3) clopidogrel 75 mg tablet 75 mg PO DAILY 07/24/22 07/24/22 History fenofibrate 160 mg tablet 160 mg PO HS 07/24/22 07/24/22 History gabapentin 100 mg capsule 100 mg PO BID 07/24/22 07/24/22 History insulin aspart U-100 100 unit/mL See Rx Instructions .Route .COMPLEX 07/24/22 07/25/22 History (3 mL) subcutaneous pen (Novolog FlexPen U-100 Insulin aspart) insulin glargine 100 unit/mL (3 30 unit subcut BID 07/24/22 07/25/22 History mL) subcutaneous pen (Basaglar KwikPen U-100 Insulin) lanthanum 750 mg chewable tablet 750 mg PO TIDM 07/24/22 07/24/22 History (Fosrenol) levofloxacin 250 mg tablet 500 mg PO DAILY 07/24/22 07/24/22 History metoprolol succinate 100 mg 100 mg PO DAILY 07/24/22 07/24/22 History tablet,extended release 24 hr pantoprazole 40 mg tablet,delayed 40 mg PO DAILYBB 07/24/22 07/24/22 History release sertraline 50 mg tablet 50 mg PO HS 07/24/22 07/24/22 History tamsulosin 0.4 mg capsule 0.4 mg PO DAILY 07/24/22 07/24/22 History venlafaxine 150 mg 150 mg PO DAILY 07/24/22 07/24/22 History capsule,extended release 24 hr vitamin B complex-vitamin C-folic 1 tab PO DAILY 07/24/22 07/24/22 History acid 0.8 mg tablet (Nephro-Shaan) Patient History Medical History Amputated great toe of left foot "due to osteomyelitis/diabetic ulcer" Dialysis patient DM type 2 (diabetes mellitus, type 2) Dyslipidemia End stage renal disease HTN (hypertension) Tobacco abuse Social History Smoking Status: Current every day smoker Cigarettes Per Day: 1/2 pack; Hx Alcohol Use: Yes Alcohol type: beer and hard liquor Hx Substance Use: No Preferred Language: Setswana Communication Ability: Effective Taxicab Starter Required: No Beliefs That Will Affect Care: None Current Living Situation: Family Current Living Situation Comment: lives with daughter Other Information That Helps Us Care for You: No Feels Safe at Home: Yes Safety Concerns: Feels Safe At This Time Assistive Devices: Walker and Wheelchair Review of Systems Review of Systems: All systems reviewed & are unremarkable except as noted in HPI & below Physical Exam Physical Exam: General: Comfortable HEENT: Sclerae anicteric Lungs: Coarse breath sounds bilaterally Cardiac: Distant heart sounds, regular rate, no murmur Vascular: 2+ radial pulses bilaterally Abdomen: Soft, nontender Extremities: Post left AKA. Right leg with dressing from toe to knee. No surrounding induration. Findings suggestive of stasis dermatitis Psych: Alert orient x3, normal affect and mood Results & Data Vital Signs (Past 12 Hours) Vital Signs Temp Pulse Pulse Resp BP BP Pulse Ox 07/25/22 14:00 72 07/25/22 14:00 72 14 123/74 93 07/25/22 13:47 97.5 F L 71 14 130/86 99 07/25/22 12:35 74 20 139/82 99 07/25/22 11:00 72 22 95 07/25/22 11:00 100/59 L 07/25/22 10:00 72 21 98 07/25/22 10:00 118/74 07/25/22 09:00 74 19 99 07/25/22 09:00 142/90 H 07/25/22 08:00 71 24 97 07/25/22 08:00 134/80 07/25/22 07:00 72 21 98 07/25/22 07:00 114/78 07/25/22 08:00 69 07/25/22 07:25 07/25/22 03:00 115/73 07/25/22 03:00 67 25 H 97 07/25/22 03:00 98.1 F O2 Del Method O2 Flow Rate 07/25/22 14:00 07/25/22 14:00 Room Air 07/25/22 13:47 Room Air 07/25/22 12:35 Nasal Cannula 2 07/25/22 11:00 07/25/22 11:00 07/25/22 10:00 07/25/22 10:00 07/25/22 09:00 07/25/22 09:00 07/25/22 08:00 07/25/22 08:00 07/25/22 07:00 07/25/22 07:00 07/25/22 08:00 07/25/22 07:25 Nasal Cannula 2 07/25/22 03:00 07/25/22 03:00 07/25/22 03:00 PG Care Time/CCT Total # of Minutes Spent Total Time Spent with Patient: Total time spent is greater than 50% in coordination of care (as documented) at patient's floor/unit and/or counseling patient: Coding Level of Care Code 40884 INT INP/OBS CARE 3/75MIN Diagnoses Cardiac arrest I46.9
[2022-07-25 15:54] LABS: Albumin Globulin Ratio 0.8 (0.9-2); Albumin Level 3.2 gm/dl (3.4-5.0); BUN Creatinine Ratio 25.9 (10-20); Bilirubin,Total 0.4 mg/dl (0.2-1.0); Creatinine Clr Calc Pharmacy 53.3 ml/min; Est GFR (African American) 34.9 ml/min; Est GFR (Non-African American) 30.1 ml/min; Globulin 4.2 gm/dl (2.5-4.0); Total Protein 7.4 gm/dl (6.0-8.3)
[2022-07-25 16:09] LABS: Troponin I High Sensitivity 106.3 pg/ml (0-20)
[2022-07-25 16:24] LABS: Ferritin 299.3 ng/ml (8-388)
[2022-07-25] MEDS ORDERED: Nursing to Pharmacy Communication SCH (16:45)
[2022-07-25] MEDS: SEVELAMER HCL 800 MG TABLET PO SCH (17:20)
--- NOTE | 2022-07-25 19:24 | Hospitalist Progress Note ---
Date of Service July 25, 2022 Assessment & Plan (1) Cardiac arrest: Plan: Occurred while receiving hemodialysis yesterday in [place]. Went unresponsiveness, and by report had PEA. s/p ~1 min of CPR. Received Epi and atropine by report. ROSC achieved after 1-2 minutes of CPR?? s/p heart cath today to r/o ischemia as cause of his event. Has known vein graft occlusions. RESENDEZ-LAD, however, widely patent. ICD/pacer interrogation did not show any arrhythmia at the time of the event. Thus - did patient have syncope? Hypoglycemia? Other? Patient takes Eliquis chronically; thus, PE unlikely. Primary PAN SHAKER event unlikely. No seizure activity seen. Appreciate cardiology consult by Dr Goyal. Cont tele monitoring. (2) Pulmonary edema: Plan: 2nd to newly diagnosed ESRD. Also with chronic systolic CHF. Pt's daughter showed a summary of pt's weights before & after his recent HD sessions. This shows a wide fluctuation in his weights suggesting ongoing struggles with volume. [facility] [place] needs. Typical schedule //Thu. He remains on lasix 40mg BID. He is non-oliguric and is making copious urine. (3) End stage renal disease: Plan: Recently HD was instituted while hospitalized at [facility]. Has tunneled HD catheter R chest. ? entry site infection ? Cont levaquin for such. [facility] [place] [place] for [place] needs. HD tomorrow. Cont sevelemer 800mg TID w/ meals. (4) Hypoglycemia: Plan: 2nd to long-acting insulin in the setting of ESRD and chronic systolic CHF. HOLD lantus. Place on D10W drip and titrate to maintain euglycemia. Hba1c noted. (5) DM type 2 (diabetes mellitus, type 2): Plan: as above (6) HTN (hypertension): Plan: controlled (7) Dyslipidemia: Plan: cont statin (8) Morbid obesity with BMI of 40.0-44.9, adult: Plan: BMI 41 (9) CAD (coronary artery disease): Plan: s/p 3-vessel CABG in the past with known 2 vein grafts occluded. s/p heart cath today by Dr Goyal. RESENDEZ-LAD patent. Cont statin Cont plavix (10) CAD (coronary artery disease) of bypass graft: (11) Above knee amputation of left lower extremity: (12) Anemia: Plan: Fe studies noted. B12/folate noted. IV iron management by nephrology. (13) Elevated troponin: Plan: no evidence of ACS. see above re: heart cath results. myocardial demand ischemia 2nd to syncope? 2nd to ESRD? other? (14) Chronic systolic CHF (congestive heart failure): Plan: EF 45-50% 2nd to ischemic cardiomyopathy? other etiology? cont metoprolol succinate. cont lasix. (15) Chronic anticoagulation: Plan: 2nd to PAF? other? patient was uncertain. Eliquis on hold in [place] of heparin drip. (16) Tobacco abuse: Plan care d/w Dr Goyal care d/w pt's family Admission and Anticipated Discharge Date Admission Date: July 24, 2022 Subjective patient reports that prior to going to dialysis yesterday his sugar was "low" in the 80s he has had other low sugars (60s) of late - usually in the morning he states he has been feeling well over the last few days no illnesses no chest pain or dyspnea just prior to the event at dialysis yesterday he had been feeling fine no recent syncope or near-syncope has been on HD <1 month was initiated at [facility] and is now dialyzing in [place] he is not on o2 at home he does not have a bullard at home pacer/ICD interrogation done late yesterday pm - NO arrhythmia during the "cardiac arrest" event yesterday no recent shocks no VT/VF no atrial based arrhythmias per nursing staff he has skin ulcers on right leg - seen by wound care today Review of Systems Review of Systems: gen - no fevers or chills cv - no chest pain pulm - no cough, no dyspnea GI - no abd pain, no N/V Physical Exam Physical Exam: gen - resting comfortably in bed, NAD, obese mouth - MMM neck - difficult to assess for JVD due to neck size chest - HD catheter right upper chest, mild bruise or erythema noted heart - RRR, s1 s2 lungs - rales bases, no increased work of breathing abd - soft NT ND BS+ ext - left AKA; right leg wrapped in dressings from foot to just below right knee; scaly skin near the right knee; pulses right foot 1-2+ psych - a/o x 3 Results & Data Results & Data Vital Signs (Past 12 Hours) Vital Signs Temp Pulse Pulse Resp BP BP Pulse Ox 07/25/22 19:13 36.8 C 73 17 133/74 93 07/25/22 19:09 07/25/22 19:09 07/25/22 18:00 77 21 93 07/25/22 18:00 136/75 07/25/22 14:30 07/25/22 17:00 79 19 92 07/25/22 17:00 130/86 07/25/22 16:00 75 07/25/22 16:30 78 18 93 07/25/22 16:12 132/66 07/25/22 16:12 77 18 07/25/22 16:00 76 19 92 07/25/22 15:30 74 17 95 07/25/22 15:30 123/73 07/25/22 14:30 36.5 C 07/25/22 15:15 79 14 96 07/25/22 15:15 129/79 07/25/22 15:01 118/71 07/25/22 15:01 81 13 94 07/25/22 15:00 79 15 94 07/25/22 14:45 76 19 07/25/22 14:45 130/82 07/25/22 14:34 129/83 07/25/22 14:34 73 16 94 07/25/22 14:30 85 L 07/25/22 14:00 72 07/25/22 14:00 72 14 123/74 93 07/25/22 13:47 36.4 C L 71 14 130/86 99 07/25/22 12:35 74 20 139/82 99 07/25/22 11:00 72 22 95 07/25/22 11:00 100/59 L 07/25/22 10:00 72 21 98 07/25/22 10:00 118/74 07/25/22 09:00 74 19 99 07/25/22 09:00 142/90 H 07/25/22 08:00 71 24 97 07/25/22 08:00 134/80 07/25/22 08:00 69 07/25/22 07:25 O2 Del Method O2 Flow Rate 07/25/22 19:13 Room Air 07/25/22 19:09 Room Air 07/25/22 19:09 Room Air 07/25/22 18:00 07/25/22 18:00 04/28/23 14:30 Room Air 07/25/22 17:00 07/25/22 17:00 07/25/22 16:00 07/25/22 16:30 07/25/22 16:12 07/25/22 16:12 07/25/22 16:00 07/25/22 15:30 07/25/22 15:30 07/25/22 14:30 07/25/22 15:15 07/25/22 15:15 07/25/22 15:01 07/25/22 15:01 07/25/22 15:00 07/25/22 14:45 07/25/22 14:45 07/25/22 14:34 07/25/22 14:34 07/25/22 14:30 07/25/22 14:00 07/25/22 14:00 Room Air 07/25/22 13:47 Room Air 07/25/22 12:35 Nasal Cannula 2 07/25/22 11:00 07/25/22 11:00 07/25/22 10:00 07/25/22 10:00 07/25/22 09:00 07/25/22 09:00 07/25/22 08:00 07/25/22 08:00 07/25/22 08:00 07/25/22 07:25 Nasal Cannula 2 Laboratory Results Laboratory Results - last 24 hr 07/24/22 07/25/22 07/25/22 23:49 01:17 01:17 WBC RBC Hgb Hct MCV MCH MCHC RDW Std Deviation RDW Coeff of Desriee Plt Count MPV APTT 44.5 H* PTT Ratio 1.6 Sodium Potassium Chloride Carbon Dioxide Anion Gap BUN Creatinine Est Cr Clr Drug Dosing Est GFR ( Amer) Est GFR (Non-Af Amer) BUN/Creatinine Ratio Glucose POC Glucose Estimat Average Glucose 171 Hemoglobin A1c 7.6 H Calcium Magnesium 1.9 Iron TIBC Unsaturated IBC Transferrin % Sat Ferritin Total Bilirubin AST ALT Alkaline Phosphatase Troponin I High Sens 161.7 H* D Total Protein Albumin Globulin Albumin/Globulin Ratio Vitamin B12 Folate 07/25/22 07/25/22 07/25/22 05:28 06:42 06:43 WBC RBC Hgb Hct MCV MCH MCHC RDW Std Deviation RDW Coeff of Desiree Plt Count MPV APTT 43.4 H* PTT Ratio 1.5 Sodium Potassium Chloride Carbon Dioxide Anion Gap BUN Creatinine Est Cr Clr Drug Dosing Est GFR ( Amer) Est GFR (Non-Af Amer) BUN/Creatinine Ratio Glucose POC Glucose 51 L* 68 L* Estimat Average Glucose Hemoglobin A1c Calcium Magnesium Iron TIBC Unsaturated IBC Transferrin % Sat Ferritin Total Bilirubin AST ALT Alkaline Phosphatase Troponin I High Sens Total Protein Albumin Globulin Albumin/Globulin Ratio Vitamin B12 Folate 07/25/22 07/25/22 07/25/22 06:48 07:06 07:21 WBC RBC Hgb Hct MCV MCH MCHC RDW Std Deviation RDW Coeff of Desiree Plt Count MPV APTT PTT Ratio Sodium Potassium Chloride Carbon Dioxide Anion Gap BUN Creatinine Est Cr Clr Drug Dosing Est GFR ( Amer) Est GFR (Non-Af Amer) BUN/Creatinine Ratio Glucose POC Glucose 88 79 Estimat Average Glucose Hemoglobin A1c Calcium Magnesium Iron TIBC Unsaturated IBC Transferrin % Sat Ferritin Total Bilirubin AST ALT Alkaline Phosphatase Troponin I High Sens 149.7 H* Total Protein Albumin Globulin Albumin/Globulin Ratio Vitamin B12 Folate 07/25/22 07/25/22 07/25/22 07:57 08:07 08:08 WBC 5.50 RBC 2.92 L Hgb 8.1 L Hct 27.3 L MCV 93.5 MCH 27.7 MCHC 29.7 L RDW Std Deviation 61.8 H RDW Coeff of Desiree 18.2 H Plt Count 190 MPV 10.6 APTT PTT Ratio Sodium Cancelled Potassium Cancelled Chloride Cancelled Carbon Dioxide Cancelled Anion Gap Cancelled BUN Cancelled Creatinine Cancelled Est Cr Clr Drug Dosing Cancelled Est GFR ( Amer) Cancelled Est GFR (Non-Af Amer) Cancelled BUN/Creatinine Ratio Cancelled Glucose Cancelled POC Glucose 73 Estimat Average Glucose Hemoglobin A1c Calcium Cancelled Magnesium Iron Cancelled TIBC Cancelled Unsaturated IBC Cancelled Transferrin % Sat Cancelled Ferritin Cancelled Total Bilirubin AST ALT Alkaline Phosphatase Troponin I High Sens Total Protein Albumin Globulin Albumin/Globulin Ratio Vitamin B12 Folate 07/25/22 07/25/22 07/25/22 08:08 09:14 10:06 WBC RBC Hgb Hct MCV MCH MCHC RDW Std Deviation RDW Coeff of Desiree Plt Count MPV APTT PTT Ratio Sodium Potassium Chloride Carbon Dioxide Anion Gap BUN Creatinine Est Cr Clr Drug Dosing Est GFR ( Amer) Est GFR (Non-Af Amer) BUN/Creatinine Ratio Glucose POC Glucose 71 68 L* Estimat Average Glucose Hemoglobin A1c Calcium Magnesium Iron TIBC Unsaturated IBC Transferrin % Sat Ferritin Total Bilirubin AST ALT Alkaline Phosphatase Troponin I High Sens Total Protein Albumin Globulin Albumin/Globulin Ratio Vitamin B12 441 Folate 13.29 07/25/22 07/25/22 07/25/22 10:09 10:32 11:24 WBC RBC Hgb Hct MCV MCH MCHC RDW Std Deviation RDW Coeff of Desiree Plt Count MPV APTT PTT Ratio Sodium Potassium Chloride Carbon Dioxide Anion Gap BUN Creatinine Est Cr Clr Drug Dosing Est GFR ( Amer) Est GFR (Non-Af Amer) BUN/Creatinine Ratio Glucose POC Glucose 68 L* 101 H 87 Estimat Average Glucose Hemoglobin A1c Calcium Magnesium Iron TIBC Unsaturated IBC Transferrin % Sat Ferritin Total Bilirubin AST ALT Alkaline Phosphatase Troponin I High Sens Total Protein Albumin Globulin Albumin/Globulin Ratio Vitamin B12 Folate 07/25/22 07/25/22 07/25/22 12:16 12:42 15:07 WBC RBC Hgb Hct MCV MCH MCHC RDW Std Deviation RDW Coeff of Desiree Plt Count MPV APTT PTT Ratio Sodium 137 Potassium 5.0 Chloride 102 Carbon Dioxide 30 Anion Gap 5 BUN 60 H Creatinine 2.32 H D Est Cr Clr Drug Dosing 53.3 Est GFR ( Amer) 34.9 Est GFR (Non-Af Amer) 30.1 BUN/Creatinine Ratio 25.9 H Glucose 66 L POC Glucose 86 86 Estimat Average Glucose Hemoglobin A1c Calcium 9.0 Magnesium Iron 42 TIBC 268 Unsaturated IBC 226 Transferrin % Sat 16 L Ferritin 299.3 Total Bilirubin 0.4 AST 20 ALT 16 Alkaline Phosphatase 36 Troponin I High Sens 106.3 H* D Total Protein 7.4 Albumin 3.2 L Globulin 4.2 H Albumin/Globulin Ratio 0.8 L Vitamin B12 Folate 07/25/22 07/25/22 16:26 19:43 WBC RBC Hgb Hct MCV MCH MCHC RDW Std Deviation RDW Coeff of Desiree Plt Count MPV APTT PTT Ratio Sodium Potassium Chloride Carbon Dioxide Anion Gap BUN Creatinine Est Cr Clr Drug Dosing Est GFR ( Amer) Est GFR (Non-Af Amer) BUN/Creatinine Ratio Glucose POC Glucose 146 H 136 H Estimat Average Glucose Hemoglobin A1c Calcium Magnesium Iron TIBC Unsaturated IBC Transferrin % Sat Ferritin Total Bilirubin AST ALT Alkaline Phosphatase Troponin I High Sens Total Protein Albumin Globulin Albumin/Globulin Ratio Vitamin B12 Folate PG Care Time/CCT Total # of Minutes Spent Total Time Spent with Patient: Total time spent is greater than 50% in coordination of care (as documented) at patient's floor/unit and/or counseling patient: Coding Level of Care Code 55439 SUB INP/OBS CARE 3/50MIN Diagnoses Cardiac arrest I46.9 Pulmonary edema J81.0 Chronicity: acute End stage renal disease N18.6 Hypoglycemia E16.2 DM type 2 (diabetes mellitus, type 2) E11.9 HTN (hypertension) I10 Dyslipidemia E78.5 Morbid obesity with BMI of 40.0-44.9, adult E66.01; Z68.41 CAD (coronary artery disease) I25.10 CAD (coronary artery disease) of bypass graft I25.810 Above knee amputation of left lower extremity S78.112A Anemia D64.9 Anemia type: unspecified type Elevated troponin R77.8 Chronic systolic CHF (congestive heart failure) I50.22 Chronic anticoagulation Z79.01 Tobacco abuse Z72.0 (2) Pulmonary edema Chronicity: acute Qualified Code(s): J81.0 - Acute pulmonary edema (12) Anemia Anemia type: unspecified type Qualified Code(s): D64.9 - Anemia, unspecified
[2022-07-25] MEDS: SERTRALINE HCL 50 MG TABLET PO SCH (20:02)
[2022-07-25] MEDS: ATORVASTATIN 40 MG TAB PO SCH (20:03)
[2022-07-26 02:11] LABS: Partial Thromboplastin Ratio 1.4; Partial Thromboplastin Time 38.1 Seconds (21.0-31.0)
[2022-07-26 05:07] LABS: Hematocrit (blood only) 27.9 % (42.0-52.0); Hemoglobin 8.6 g/dl (14.0-18.0); Mean Corpuscular Hemoglobin 27.7 pg (25.0-34.0); Mean Corpuscular Hgb Conc 30.8 g/dL (32.0-36.0); Mean Platelet Volume 10.3 fL (9.4-12.4); Platelet Count 217 K/uL (130-400); RDW Coefficient of Variation 17.8 % (11.5-14.5); RDW Standard Deviation 58.4 fL (36.4-46.3); White Blood Count 6.21 K/ul (4.8-10.8)
[2022-07-26 05:17] LABS: Albumin Level 2.8 gm/dl (3.4-5.0); BUN Creatinine Ratio 22.4 (10-20); Calcium 8.5 mg/dl (8.6-10.3); Creatinine Clr Calc Pharmacy 48.7 ml/min; Est GFR (African American) 31.2 ml/min; Potassium 5.4 mmol/L (3.5-5.1)
[2022-07-26] MEDS: PANTOprazole 40 MG TAB PO SCH (05:47)
[2022-07-26] MEDS: HEPARIN SODIUM/DEXTROSE 25,000 UNITS/500 ML BAG IV SCH (07:12)
[2022-07-26] MEDS: FUROSEMIDE 40 MG/4 ML VIAL IV SCH ×2 (07:53→20:11)
[2022-07-26] MEDS: VENLAFAXINE HCL XR 150 MG CAPXR PO SCH (07:54)
[2022-07-26] MEDS: CLOPIDOGREL BISULFATE 75 MG TAB PO SCH (07:54)
[2022-07-26] MEDS: SEVELAMER HCL 800 MG TABLET PO SCH ×3 (07:55→16:41)
[2022-07-26] MEDS: TAMSULOSIN HCL 0.4 MG CAP PO SCH (07:56)
[2022-07-26] MEDS: INSULIN ASPART PER UNIT CHARGE SC SCH ×4 (07:56→20:13)
[2022-07-26] MEDS: METOPROLOL SUCC 50MG EXT REL TAB PO SCH (07:56)
--- NOTE | 2022-07-26 08:45 | Nephrology Progress Note ---
Date of Service July 26, 2022 Assessment & Plan (1) Chronic kidney disease: Plan: * HD initiated ~ 2weeks ago at [facility] by Dr. Estrella - JEWEL/CKD with potential for recovery. Patient now dialyzes at [facility] under the care of Dr. Nesbitt * Outpatient HD: [facility] 4.5 hr F-180, Qb 400, Qd 800, 2K 2.5 Ca HCO3 35. EDW 138 kg. Heparin 2000 bolus and 1000 per hour. * HD today for correction of hyperkalemia and continued UF * If discharge is anticipated, please have patient resume outpatient HD at [facility] and follow up w/ Dr. Nesbitt to monitor for possible renal recovery (2) Hemodialysis status: Plan: * Renal diet. Continue Fosrenol 50 mg TIDM for hyperphosphatemia. 1.2 L daily fluid restriction. * TCC care to be provided by prosthodontist/owner. (3) Anemia: Plan: * Chronic. Outpatient Hgb 9.3 on the . Maintained on Micera 75 q 2 weeks as outpatient. Receiving IV iron loading at dialysis currently. * Iron saturation 16% w/ ferritin 299. Will order Venofer 200 mg IV daily x 5 days (4) Cardiac arrest: Plan: * Cardiac cath results reviewed. No lesions amenable to intervention Admission and Anticipated Discharge Date Admission Date: July 24, 2022 Subjective Mr. Yarbrough was evaluated in the ICU this morning. He denied angina or dyspnea. He reports that he uses oxygen at 2 L/min NC while sleeping at home. Review of Systems Constitutional: no fever Eyes: no problem reported Ear, Nose, Mouth, Throat: no problem reported Respiratory: no dyspnea Cardiovascular: no chest pain Gastrointestinal: no abdominal pain, no nausea, no vomiting and no diarrhea/loose stools Genitourinary: no dysuria, no hematuria or no flank pain Neurologic: no confusion Physical Exam Constitutional: + obese; not in distress Eyes: PERRL, conjunctivae normal, anicteric sclerae ENMT: external ear and nose normal, oropharynx normal Neck: + thick neck R IJ TCC w/ clean, dry dressing Respiratory: normal respiratory effort, lungs clear to auscultation Cardiovascular: Rate/Rhythm: regular rate and regular rhythm Gastrointestinal (Abdomen): Inspection/Auscultation: normal bowel sounds Percussion/Palpation: abdomen soft; abdomen nontender and no guarding Musculoskeletal: L AKA Skin: RLE wrapped. Amputation of R great toe noted Neurologic: Speech / Cognition: normal speech and normal cognition Genitourinary: + scrotal swelling Olson catheter in place draining clear, yellow urine Results & Data Vital Signs (Past 12 Hours) Vital Signs Temp Pulse Pulse Resp BP BP Pulse Ox 07/26/22 08:00 80 20 94 07/26/22 08:00 154/82 H 07/26/22 07:55 152/88 H 07/26/22 07:55 81 19 92 07/26/22 07:00 77 26 H 93 07/26/22 08:00 85 07/26/22 07:28 07/26/22 04:00 75 20 94 07/26/22 04:00 136/80 07/26/22 03:44 135/77 07/26/22 03:44 73 21 95 07/26/22 02:00 77 24 95 07/26/22 00:00 72 21 95 07/26/22 00:00 121/71 07/25/22 22:49 133/74 07/25/22 22:49 70 21 98 07/25/22 22:48 73 14 98 07/25/22 22:48 133/101 H 07/26/22 03:44 36.9 C 07/26/22 00:00 74 07/25/22 22:00 36.9 C 70 21 133/74 97 07/25/22 22:00 75 16 91 07/25/22 22:00 O2 Del Method O2 Del Method O2 Flow Rate 07/26/22 08:00 07/26/22 08:00 07/26/22 07:55 07/26/22 07:55 07/26/22 07:00 07/26/22 08:00 07/26/22 07:28 Nasal Cannula 2 07/26/22 04:00 07/26/22 04:00 07/26/22 03:44 07/26/22 03:44 07/26/22 02:00 07/26/22 00:00 07/26/22 00:00 07/25/22 22:49 07/25/22 22:49 07/25/22 22:48 07/25/22 22:48 07/26/22 03:44 07/26/22 00:00 07/25/22 22:00 Nasal Cannula 2 07/25/22 22:00 07/25/22 22:00 Room Air Laboratory Results Laboratory Tests 07/25/22 07/26/22 07/26/22 15:07 04:40 04:40 WBC 6.21 Hgb 8.6 L Hct 27.9 L Plt Count 217 Sodium 133 L Potassium 5.4 H Chloride 100 Carbon Dioxide 29 BUN 57 H Creatinine 2.54 H Glucose 101 H Calcium 8.5 L Phosphorus 3.0 Transferrin % Sat 16 L Ferritin 299.3 Albumin 2.8 L Diagnostic Findings 07/24/22 CXR: Cardiomegaly with moderate pulmonary edema. 07/25/22 Echocardiogram: Borderline global hypokinesis of LV, LVEF 45-50% 07/25/22 Cardiac cath: LM -heavily calcified, medium caliber, 60-70% distal stenosis LAD -medium caliber, heavily calcified, proximal segment ectatic, diffuse mid segment disease up to 80%. Bifurcating D1, D2 with diffuse disease. Competitive flow in mid LAD at takeoff of small D3. Circumflex -100% proximal chronic total occlusion. OM fills partially retrograde via left to left collaterals RCA -dominant, medium caliber, calcified, diffuse mild to moderate proximal/mid disease. Chronic subtotal occlusion in mid segment after takeoff of acute marginal. COMPA I flow in distal RCA. RESENDEZ to LADlarge caliber, widely patent. Mid to distal LAD after anastomosis widely patent and wraps around apex. LAD provides collaterals to left posterior lateral branch. Vein graftsknown to be occluded PG Care Time/CCT Total # of Minutes Spent Total Time Spent with Patient: Total time spent is greater than 50% in coordination of care (as documented) at patient's floor/unit and/or counseling patient: Coding Level of Care Code 59870 SUB INP/OBS CARE 3/50MIN Diagnoses Chronic kidney disease N18.9 Hemodialysis status Z99.2 Anemia D64.9 Anemia type: unspecified type Cardiac arrest I46.9 (3) Anemia Anemia type: unspecified type Qualified Code(s): D64.9 - Anemia, unspecified
[2022-07-26] MEDS: IRON SUCROSE 200 MG in 0.9 % SODIUM CHLORIDE 100 ML IV SCH (10:54)
--- NOTE | 2022-07-26 11:52 | Hospitalist Progress Note ---
Date of Service July 26, 2022 Assessment & Plan (1) Hemodialysis catheter infection: Plan: The patient apparently was placed on levaquin as outpatient on 07/23/22 by his system trainer when the portion of the dialysis catheter tract nearest the clavicle appeared erythematous. He received levaquin yesterday as well. This area of infection is worse with visible purulence, subcu induration, and ?small abscess. Dr Clark from [facility] Gen Surg saw patient in consult and has advised transfer to [facility] where vascular surgery is available to assess the catheter. Dr Ruiz, [facility] at [facility], is unavailable until sometime next week. Further, the patient had his HD catheter placed there about 1 month ago. The concern is that this portion of the catheter is where it dives into the subclavian vein. If the area is incised the catheter may be potentially exposed to air, etc. Rocephin 2gm IV daily was started, and daptomycin was ordered. Patient is MRSA + in the nares on ACADEMIC ADVISEMENT DIRECTOR swab. I called [facility] and ultimately connected with Dr Selina Pool, Hospitalist at [facility]. Dr Pool has accepted the patient in transfer to [place]. Patient made aware of the need for transfer. Will inform his family as well. (2) Cardiac arrest: Plan: Occurred while receiving hemodialysis 07/24/22 in [place]. Went unresponsiveness, and by report had ?PEA. s/p ~1 min of CPR. Received Epi and atropine by report as well. ROSC achieved after 1-2 minutes of CPR?? s/p heart cath 07/[address] Harshad Goyal to r/o ischemia as cause of his event. Has known vein graft occlusions x [address] Watts, his primary chief deputy sheriff in [place]. RESENDEZ-LAD, however, widely patent on cath yesterday. ICD/pacer interrogation did not show any arrhythmia at the time of the event. Thus - did patient have intra-dialysis hypotension leading to syncope? Hypoglycemia? Other? Patient takes Eliquis chronically; thus, PE unlikely. Primary HEMODIALYSIS RN event unlikely. No seizure activity seen. Although #1 is present, his blood cultures remain negative and thus septicemia not felt to have caused his event. Appreciate cardiology consult by Dr Goyal. Cont tele monitoring. (3) Pulmonary edema: Plan: 2nd to newly diagnosed ESRD. Also with chronic systolic CHF. Pt's daughter showed a summary of pt's weights before & after his recent HD sessions. This shows a wide fluctuation in his weights suggesting ongoing struggles with volume over the last 2 weeks as outpatient. [facility] Nephrology consulted for HD needs. Typical schedule //Thu. He remains on lasix 40mg BID IV with good UOP. To have HD today. (4) End stage renal disease: Plan: Recently HD was instituted while hospitalized at [facility] about 3-4 weeks ago. Apparently had pre-existing CKD and then developed JEWEL by report. Has tunneled HD catheter R chest. See #1 above. [facility] Nephrology consulted for HD needs. HD today with parameters by Dr Wilcox. Cont sevelemer 800mg TID w/ meals. (5) Hypoglycemia: Plan: 2nd to long-acting insulin in the setting of ESRD and chronic systolic CHF. HOLD lantus. Novolog SSI. No further lows. No longer on D10W drip. Hba1c 7.6% Control adequate over last 12-24 hours. (6) DM type 2 (diabetes mellitus, type 2): Plan: as above (7) HTN (hypertension): Plan: controlled (8) Dyslipidemia: Plan: cont statin (9) Morbid obesity with BMI of 40.0-44.9, adult: Plan: BMI 41 (10) CAD (coronary artery disease): Plan: s/p 3-vessel CABG in the past with known 2 vein grafts occluded. s/p heart cath 07/25/[address] Goyal. RESENDEZ-LAD patent. Cont statin Cont plavix (11) CAD (coronary artery disease) of bypass graft: (12) Above knee amputation of left lower extremity: (13) Anemia: Plan: Fe studies noted. B12/folate noted. IV iron management by nephrology. (14) Elevated troponin: Plan: no evidence of ACS. see above re: heart cath results. myocardial demand ischemia 2nd to syncope? 2nd to ESRD? other? (15) Chronic systolic CHF (congestive heart failure): Plan: EF 45-50% 2nd to ischemic cardiomyopathy? other etiology? cont metoprolol succinate. cont lasix. cont volume control with dialysis. LVEDP was 35 on 07/25/22 heart cath. (16) Chronic anticoagulation: Plan: 2nd to PAF? other? patient was uncertain. Eliquis had been placed on hold due to recent heparin infusion. Heparin now off. But will cont to hold Eliquis due to #1 and potential need for intervention of this issue. Cont plavix. (17) Tobacco abuse: Plan will update pt's family complex care coordination care d/w DR Clark - gen surg [facility] total care time 85 minutes Admission and Anticipated Discharge Date Admission Date: July 24, 2022 Subjective patient w/o complaints today tele overnight wnl during my visit he was getting HD; goal 3.4 L UF with AM lasix he has had 700-800cc of UOP eating ok denies cp, dyspnea at rest, abd pain confirms he uses NC O2 with sleep (can't tolerate CPAP for HANY) no issues with L wrist cath site overnight Review of Systems Review of Systems: gen - no fevers or chills cv - no PND pulm - denies dyspnea at rest GI - no vomiting Physical Exam Physical Exam: gen - resting comfortably in bed, NAD, obese; receiving HD mouth - MMM neck - difficult to assess for JVD due to neck size chest - HD catheter right upper chest, mild bruise or erythema noted at the insertion site; 3-4 cm superior to the catheter is a small healed incision with visible purulence; there is an indurated/firm area, about 1.5cm x 1.5cm, suspicious for subcu abscess heart - RRR, s1 s2, no murmur lungs - mild b/l rales bases, no increased work of breathing abd - soft NT ND BS+ ext - left AKA; right leg wrapped in dressings from foot to just below right knee; scaly skin near the right knee; pulses right foot 1-2+ psych - a/o x 3 skin - scattered dermatitis on both thighs Results & Data Results & Data Vital Signs (Past 12 Hours) Vital Signs Temp Pulse Pulse Resp BP Pulse Ox O2 Del Method 07/26/22 11:00 78 126/82 07/26/22 10:30 78 131/76 07/26/22 10:15 80 129/69 07/26/22 11:00 77 18 94 07/26/22 10:30 131/76 07/26/22 10:30 78 21 95 07/26/22 10:15 129/69 07/26/22 10:15 83 20 95 07/26/22 10:01 82 22 94 07/26/22 10:00 82 19 94 07/26/22 09:30 79 18 95 07/26/22 09:30 131/83 07/26/22 09:04 79 18 94 07/26/22 09:04 109/66 07/26/22 09:00 80 21 95 07/26/22 08:35 145/81 H 07/26/22 08:35 78 21 98 07/26/22 08:27 78 24 95 07/26/22 08:27 131/77 07/26/22 10:00 81 150/116 H 07/26/22 09:30 80 131/83 07/26/22 09:00 79 106/66 07/26/22 08:34 78 145/81 H 07/26/22 08:27 36.6 C 78 07/26/22 08:00 80 20 94 07/26/22 08:00 154/82 H 07/26/22 07:55 152/88 H 07/26/22 07:55 81 19 92 07/26/22 07:00 77 26 H 93 07/26/22 08:00 85 07/26/22 07:28 Nasal Cannula 07/26/22 04:00 75 20 94 07/26/22 04:00 136/80 07/26/22 03:44 135/77 07/26/22 03:44 73 21 95 07/26/22 02:00 77 24 95 07/26/22 00:00 72 21 95 07/26/22 00:00 121/71 07/26/22 03:44 36.9 C 07/26/22 00:00 74 O2 Flow Rate 07/26/22 11:00 07/26/22 10:30 07/26/22 10:15 07/26/22 11:00 07/26/22 10:30 07/26/22 10:30 07/26/22 10:15 07/26/22 10:15 07/26/22 10:01 07/26/22 10:00 07/26/22 09:30 07/26/22 09:30 07/26/22 09:04 07/26/22 09:04 07/26/22 09:00 07/26/22 08:35 07/26/22 08:35 07/26/22 08:27 07/26/22 08:27 07/26/22 10:00 07/26/22 09:30 07/26/22 09:00 07/26/22 08:34 07/26/22 08:27 07/26/22 08:00 07/26/22 08:00 07/26/22 07:55 07/26/22 07:55 07/26/22 07:00 07/26/22 08:00 07/26/22 07:28 2 07/26/22 04:00 07/26/22 04:00 07/26/22 03:44 07/26/22 03:44 07/26/22 02:00 07/26/22 00:00 07/26/22 00:00 07/26/22 03:44 07/26/22 00:00 Laboratory Results Laboratory Results - last 24 hr 07/25/22 07/25/22 07/25/22 08:07 12:16 12:42 WBC RBC Hgb Hct MCV MCH MCHC RDW Std Deviation RDW Coeff of Desiree Plt Count MPV APTT PTT Ratio Sodium Cancelled Potassium Cancelled Chloride Cancelled Carbon Dioxide Cancelled Anion Gap Cancelled BUN Cancelled Creatinine Cancelled Est Cr Clr Drug Dosing Cancelled Est GFR ( Amer) Cancelled Est GFR (Non-Af Amer) Cancelled BUN/Creatinine Ratio Cancelled Glucose Cancelled POC Glucose 86 86 Calcium Cancelled Phosphorus Iron Cancelled TIBC Cancelled Unsaturated IBC Cancelled Transferrin % Sat Cancelled Ferritin Cancelled Total Bilirubin AST ALT Alkaline Phosphatase Troponin I High Sens Total Protein Albumin Globulin Albumin/Globulin Ratio 07/25/22 07/25/22 07/25/22 15:07 16:26 19:43 WBC RBC Hgb Hct MCV MCH MCHC RDW Std Deviation RDW Coeff of Desiree Plt Count MPV APTT PTT Ratio Sodium 137 Potassium 5.0 Chloride 102 Carbon Dioxide 30 Anion Gap 5 BUN 60 H Creatinine 2.32 H D Est Cr Clr Drug Dosing 53.3 Est GFR ( Amer) 34.9 Est GFR (Non-Af Amer) 30.1 BUN/Creatinine Ratio 25.9 H Glucose 66 L POC Glucose 146 H 136 H Calcium 9.0 Phosphorus Iron 42 TIBC 268 Unsaturated IBC 226 Transferrin % Sat 16 L Ferritin 299.3 Total Bilirubin 0.4 AST 20 ALT 16 Alkaline Phosphatase 36 Troponin I High Sens 106.3 H* D Total Protein 7.4 Albumin 3.2 L Globulin 4.2 H Albumin/Globulin Ratio 0.8 L 07/26/22 07/26/22 07/26/22 00:32 04:40 04:40 WBC 6.21 RBC 3.10 L Hgb 8.6 L Hct 27.9 L MCV 90.0 MCH 27.7 MCHC 30.8 L RDW Std Deviation 58.4 H RDW Coeff of Desiree 17.8 H Plt Count 217 MPV 10.3 APTT 38.1 H PTT Ratio 1.4 Sodium 133 L Potassium 5.4 H Chloride 100 Carbon Dioxide 29 Anion Gap 4 BUN 57 H Creatinine 2.54 H Est Cr Clr Drug Dosing 48.7 Est GFR ( Amer) 31.2 Est GFR (Non-Af Amer) 27.0 BUN/Creatinine Ratio 22.4 H Glucose 101 H POC Glucose Calcium 8.5 L Phosphorus 3.0 Iron TIBC Unsaturated IBC Transferrin % Sat Ferritin Total Bilirubin AST ALT Alkaline Phosphatase Troponin I High Sens Total Protein Albumin 2.8 L Globulin Albumin/Globulin Ratio 07/26/22 07:21 WBC RBC Hgb Hct MCV MCH MCHC RDW Std Deviation RDW Coeff of Edsiree Plt Count MPV APTT PTT Ratio Sodium Potassium Chloride Carbon Dioxide Anion Gap BUN Creatinine Est Cr Clr Drug Dosing Est GFR ( Amer) Est GFR (Non-Af Amer) BUN/Creatinine Ratio Glucose POC Glucose 116 H Calcium Phosphorus Iron TIBC Unsaturated IBC Transferrin % Sat Ferritin Total Bilirubin AST ALT Alkaline Phosphatase Troponin I High Sens Total Protein Albumin Globulin Albumin/Globulin Ratio PG Care Time/CCT Total # of Minutes Spent Total Time Spent with Patient: Total time spent is greater than 50% in coordination of care (as documented) at patient's floor/unit and/or counseling patient: Prolonged Care Time Prolonged Care Time: Yes Total Prolonged Care Time: 85 Coding Level of Care Code 40422 SUB INP/OBS CARE 3/50MIN (25 - SIGNIFICANT, SEPARATELY IDENTIFIABLE ) Diagnoses Hemodialysis catheter infection T82.7XXA Cardiac arrest I46.9 Pulmonary edema J81.0 Chronicity: acute End stage renal disease N18.6 Hypoglycemia E16.2 DM type 2 (diabetes mellitus, type 2) E11.9 HTN (hypertension) I10 Dyslipidemia E78.5 Morbid obesity with BMI of 40.0-44.9, adult E66.01; Z68.41 CAD (coronary artery disease) I25.10 CAD (coronary artery disease) of bypass graft I25.810 Above knee amputation of left lower extremity S78.112A Anemia D64.9 Anemia type: unspecified type Elevated troponin R77.8 Chronic systolic CHF (congestive heart failure) I50.22 Chronic anticoagulation Z79.01 Tobacco abuse Z72.0 Additional Codes Prolonged Care Time - Prolonged Care Time: Yes ([id number]) (3) Pulmonary edema Chronicity: acute Qualified Code(s): J81.0 - Acute pulmonary edema (13) Anemia Anemia type: unspecified type Qualified Code(s): D64.9 - Anemia, unspecified
--- NOTE | 2022-07-26 12:29 | Surgery Consultation ---
Date of Consultation July 26, 2022 Assessment & Plan (1) Hemodialysis catheter infection: There is erythema at the base of the right neck at the wound where the catheter would enter the internal jugular vein There is no opening in the incision I would not attempt to incise this area as it would expose the catheter and then the catheter would need to be removed and replaced We do not have anybody in our hospital to perform the procedure Best treatment would be to treat the patient with IV antibiotics Monitor the site for wound opening or significant purulent drainage If that were to happen the catheter will need to be removed and replaced and he may need to be transferred To a facility who can perform this History of Present Illness Attending Physician: Daryn May MD History of Present Illness 57-year-old male who I was asked to evaluate his hemodialysis catheter in the right chest He is currently on but hemodialysis in the intensive care unit although he is on a telemetry level bed His right chest dialysis catheter was placed recently apparently in [place] The entry site is the right IJ with an incision at that level showing erythema Allergies Allergy/AdvReac Type Severity Reaction Status Date / Time No Known Allergies Allergy Mild * Verified 07/24/22 14:50 Home Medications Medication Instructions Recorded Confirmed Type Lactobacillus acidophilus-pectin 1 tab PO DAILY 07/24/22 07/24/22 History 30 mg-20 mg tablet acetaminophen 325 mg tablet 650 mg PO Q4H PRN PAIN/FEVER 07/24/22 07/24/22 History (Tylenol) apixaban 5 mg tablet (Eliquis) 5 mg PO BID 07/24/22 07/24/22 History atorvastatin 80 mg tablet 80 mg PO HS 07/24/22 07/24/22 History bumetanide 1 mg tablet 2 mg PO BID 07/24/22 07/24/22 History cholecalciferol (vitamin D3) 50 50 mcg PO DAILY 07/24/22 07/24/22 History mcg (2,000 unit) capsule (Vitamin D3) clopidogrel 75 mg tablet 75 mg PO DAILY 07/24/22 07/24/22 History fenofibrate 160 mg tablet 160 mg PO HS 07/24/22 07/24/22 History gabapentin 100 mg capsule 100 mg PO BID 07/24/22 07/24/22 History insulin aspart U-100 100 unit/mL See Rx Instructions .Route .COMPLEX 07/24/22 07/25/22 History (3 mL) subcutaneous pen (Novolog FlexPen U-100 Insulin aspart) insulin glargine 100 unit/mL (3 30 unit subcut BID 07/24/22 07/25/22 History mL) subcutaneous pen (Basaglar KwikPen U-100 Insulin) lanthanum 750 mg chewable tablet 750 mg PO TIDM 07/24/22 07/24/22 History (Fosrenol) levofloxacin 250 mg tablet 500 mg PO DAILY 07/24/22 07/24/22 History metoprolol succinate 100 mg 100 mg PO DAILY 07/24/22 07/24/22 History tablet,extended release 24 hr pantoprazole 40 mg tablet,delayed 40 mg PO DAILYBB 07/24/22 07/24/22 History release sertraline 50 mg tablet 50 mg PO HS 07/24/22 07/24/22 History tamsulosin 0.4 mg capsule 0.4 mg PO DAILY 07/24/22 07/24/22 History venlafaxine 150 mg 150 mg PO DAILY 07/24/22 07/24/22 History capsule,extended release 24 hr vitamin B complex-vitamin C-folic 1 tab PO DAILY 07/24/22 07/24/22 History acid 0.8 mg tablet (Nephro-Shaan) Patient History Medical History (Updated 07/26/22 @ 11:58 by Daryn May MD) Amputated great toe of left foot "due to osteomyelitis/diabetic ulcer" Dialysis patient DM type 2 (diabetes mellitus, type 2) Dyslipidemia End stage renal disease HTN (hypertension) Tobacco abuse Social History Smoking Status: Current every day smoker Cigarettes Per Day: 1/2 pack; Hx Alcohol Use: Yes Alcohol type: beer and hard liquor Hx Substance Use: No Preferred Language: Albanian Communication Ability: Effective Shearing Supervisor Required: No Beliefs That Will Affect Care: None Current Living Situation: Family Current Living Situation Comment: lives with daughter Other Information That Helps Us Care for You: No Feels Safe at Home: Yes Safety Concerns: Feels Safe At This Time Assistive Devices: Walker and Wheelchair Review of Systems Review of Systems: All systems reviewed & are unremarkable except as noted in HPI & below Physical Exam Physical Exam: Patient has a dialysis catheter in the right chest with the exit site in the lower chest The majority of the tunnel shows normal skin color but at the level of the base of the neck where it would enter the internal jugular vein there is some erythema and induration There is no opening in the incision Constitutional: no acute distress Eyes: + anicteric sclerae Respiratory: normal respiratory effort; no respiratory distress Cardiovascular: Rate/Rhythm: regular rhythm Chest (Breasts): Additional Comments: See above Gastrointestinal (Abdomen): Inspection/Auscultation: + abdomen distended Skin: no rashes, warm and dry Neurologic: awake Psychiatric: Orientation: alert Results & Data Vital Signs (Past 12 Hours) Vital Signs Temp Pulse Pulse Resp BP Pulse Ox O2 Del Method 07/26/22 12:00 77 120/66 07/26/22 11:30 77 134/70 07/26/22 11:00 78 126/82 07/26/22 10:30 78 131/76 07/26/22 10:15 80 129/69 07/26/22 11:00 77 18 94 07/26/22 10:30 131/76 07/26/22 10:30 78 21 95 07/26/22 10:15 129/69 07/26/22 10:15 83 20 95 07/26/22 10:01 82 22 94 07/26/22 10:00 82 19 94 07/26/22 09:30 79 18 95 07/26/22 09:30 131/83 07/26/22 09:04 79 18 94 07/26/22 09:04 109/66 07/26/22 09:00 80 21 95 07/26/22 08:35 145/81 H 07/26/22 08:35 78 21 98 07/26/22 08:27 78 24 95 07/26/22 08:27 131/77 07/26/22 10:00 81 150/116 H 07/26/22 09:30 80 131/83 07/26/22 09:00 79 106/66 07/26/22 08:34 78 145/81 H 07/26/22 08:27 36.6 C 78 07/26/22 08:00 80 20 94 07/26/22 08:00 154/82 H 07/26/22 07:55 152/88 H 07/26/22 07:55 81 19 92 07/26/22 07:00 77 26 H 93 07/26/22 08:00 85 07/26/22 07:28 Nasal Cannula 07/26/22 04:00 75 20 94 07/26/22 04:00 136/80 07/26/22 03:44 135/77 07/26/22 03:44 73 21 95 07/26/22 02:00 77 24 95 07/26/22 03:44 36.9 C O2 Flow Rate 07/26/22 12:00 07/26/22 11:30 07/26/22 11:00 07/26/22 10:30 07/26/22 10:15 07/26/22 11:00 07/26/22 10:30 07/26/22 10:30 07/26/22 10:15 07/26/22 10:15 07/26/22 10:01 07/26/22 10:00 07/26/22 09:30 07/26/22 09:30 07/26/22 09:04 07/26/22 09:04 07/26/22 09:00 07/26/22 08:35 07/26/22 08:35 07/26/22 08:27 07/26/22 08:27 07/26/22 10:00 07/26/22 09:30 07/26/22 09:00 07/26/22 08:34 07/26/22 08:27 07/26/22 08:00 07/26/22 08:00 07/26/22 07:55 07/26/22 07:55 07/26/22 07:00 07/26/22 08:00 07/26/22 07:28 2 07/26/22 04:00 07/26/22 04:00 07/26/22 03:44 07/26/22 03:44 07/26/22 02:00 07/26/22 03:44 PG Care Time/CCT Total # of Minutes Spent Total Time Spent with Patient: Total time spent is greater than 50% in coordination of care (as documented) at patient's floor/unit and/or counseling patient: Coding Level of Care Code 04508 INT INP/OBS CARE 2/55MIN Diagnoses Hemodialysis catheter infection T82.7XXA
[2022-07-26] MEDS: cefTRIAXone SODIUM 2,000 MG in DEXTROSE 5% 50 ML IV SCH (12:52)
[2022-07-26] MEDS: DAPTOmycin 425 MG in SYRINGE 0 ML IV SCH (12:52)
[2022-07-26] MEDS: SERTRALINE HCL 50 MG TABLET PO SCH (20:11)
[2022-07-27 04:45] LABS: Hemoglobin 8.9 g/dl (14.0-18.0); Mean Corpuscular Hemoglobin 27.3 pg (25.0-34.0); Mean Corpuscular Hgb Conc 30.7 g/dL (32.0-36.0); Mean Platelet Volume 9.6 fL (9.4-12.4); Platelet Count 210 K/uL (130-400); RDW Coefficient of Variation 17.6 % (11.5-14.5); RDW Standard Deviation 57.4 fL (36.4-46.3); Red Blood Count 3.26 M/uL (4.70-6.10)
[2022-07-27 05:10] LABS: BUN Creatinine Ratio 16.8 (10-20); Calcium 8.2 mg/dl (8.6-10.3); Creatinine Clr Calc Pharmacy 64.7 ml/min; Est GFR (African American) 44.1 ml/min; Potassium 4.5 mmol/L (3.5-5.1)
[2022-07-27] MEDS: PANTOprazole 40 MG TAB PO SCH (05:47)
[2022-07-27] MEDS: INSULIN ASPART PER UNIT CHARGE SC SCH ×4 (07:59→20:12)
[2022-07-27] MEDS: SEVELAMER HCL 800 MG TABLET PO SCH ×3 (08:00→17:46)
[2022-07-27] MEDS: VENLAFAXINE HCL XR 150 MG CAPXR PO SCH (08:01)
[2022-07-27] MEDS: FUROSEMIDE 40 MG/4 ML VIAL IV SCH ×2 (08:01→20:13)
[2022-07-27] MEDS: TAMSULOSIN HCL 0.4 MG CAP PO SCH (08:01)
[2022-07-27] MEDS: METOPROLOL SUCC 50MG EXT REL TAB PO SCH (08:01)
[2022-07-27] MEDS: CLOPIDOGREL BISULFATE 75 MG TAB PO SCH (08:02)
--- NOTE | 2022-07-27 09:04 | Nephrology Progress Note ---
Date of Service July 27, 2022 Assessment & Plan (1) Chronic kidney disease: Plan: * HD initiated ~ 2weeks ago at [facility] by Dr. Estrella - JEWEL/CKD with potential for recovery. Patient now dialyzes at [facility] under the care of Dr. Nesbitt * Outpatient HD: [facility] TTS 4.5 hr F-180, Qb 400, Qd 800, 2K 2.5 Ca HCO3 35. EDW 138 kg. Heparin 2000 bolus and 1000 per hour. * Patient was dialyzed yesterday for 3 L UF without complication * Dressing on R IJ TCC taken down this am. Small volume of purulent fluid expressed from proximal insertion site. The patient likely has a tunnel infection. He is currently afebrile, hemodynamically stable and has no leukocytosis. 07/24/22 blood cultures x2 are negative. Levaquin should provide both gram+/gram- coverage. Agree however that catheter will need to be removed. Patient does appear to be recovering kidney function. Once catheter is removed he will need to be observed closely to determine whether he may remain off dialysis. Primary service has arranged for transfer back to [facility] for Vascular Surgery services as they are currently unavailable at our hospital (2) Hemodialysis status: Plan: * Renal diet. Continue Fosrenol 50 mg TIDM for hyperphosphatemia. 1.2 L daily fluid restriction. * UO 1100 cc last 24 hrs. Cr 1.9 post dialysis. Patient appears to be recovering kidney function. Electrolyte balance is acceptable. Continue to monitor UO, PRP closely (3) Anemia: Plan: * Chronic. Outpatient Hgb 9.3 07/22/22. Maintained on Micera 75 q 2 weeks as outpatient * Iron saturation 16% w/ ferritin 299. Day #2 of 5 IV Venofer (4) Cardiac arrest: Plan: * 07/25/22 cardiac cath results reviewed. No lesions amenable to intervention Admission and Anticipated Discharge Date Admission Date: July 24, 2022 Subjective Mr. Yarbrough was evaluated in the ICU this morning. He was dialyzed yesterday using his R IJ TCC. There were no complications during HD. 3 L UF was obtained Review of Systems Constitutional: no fever Eyes: no problem reported Ear, Nose, Mouth, Throat: no problem reported Respiratory: no dyspnea Cardiovascular: no chest pain Gastrointestinal: no abdominal pain, no nausea, no vomiting and no diarrhea/loose stools Genitourinary: no dysuria, no hematuria or no flank pain Neurologic: no confusion Physical Exam Constitutional: + obese; not in distress Eyes: PERRL, conjunctivae normal, anicteric sclerae ENMT: external ear and nose normal, oropharynx normal Neck: + thick neck (small quantity of purulent drainage proximal insertion site for TCC ) Respiratory: normal respiratory effort, lungs clear to auscultation Cardiovascular: Rate/Rhythm: regular rate and regular rhythm Gastrointestinal (Abdomen): Inspection/Auscultation: normal bowel sounds Percussion/Palpation: abdomen soft; abdomen nontender and no guarding Neurologic: Speech / Cognition: normal speech and normal cognition Genitourinary: + scrotal swelling Results & Data Vital Signs (Past 12 Hours) Vital Signs Temp Pulse Resp BP Pulse Ox O2 Del Method O2 Del Method 07/27/22 08:00 80 07/27/22 07:31 Nasal Cannula 07/27/22 05:00 135/79 07/27/22 05:00 82 17 95 07/27/22 04:00 80 28 H 93 07/27/22 04:00 139/79 07/27/22 02:00 96 07/27/22 02:00 132/69 07/27/22 01:00 80 19 93 07/27/22 01:00 136/64 07/27/22 00:00 76 15 96 07/27/22 00:00 121/56 L 07/26/22 23:00 138/62 07/26/22 23:00 77 15 95 07/26/22 22:00 77 19 96 07/26/22 22:00 141/86 H 07/27/22 03:00 36.7 C 07/27/22 01:57 78 07/26/22 22:45 36.7 C 07/26/22 22:00 Nasal Cannula O2 Flow Rate O2 Flow Rate 07/27/22 08:00 07/27/22 07:31 2 07/27/22 05:00 07/27/22 05:00 07/27/22 04:00 07/27/22 04:00 07/27/22 02:00 07/27/22 02:00 07/27/22 01:00 07/27/22 01:00 07/27/22 00:00 07/27/22 00:00 07/26/22 23:00 07/26/22 23:00 07/26/22 22:00 07/26/22 22:00 07/27/22 03:00 07/27/22 01:57 07/26/22 22:45 07/26/22 22:00 2 Laboratory Results Laboratory Tests 07/27/22 07/27/22 04:21 04:21 WBC 4.90 Hgb 8.9 L Hct 29.0 L Plt Count 210 Sodium 134 L Potassium 4.5 Chloride 102 Carbon Dioxide 27 BUN 32 H D Creatinine 1.91 H D Glucose 130 H PG Care Time/CCT Total # of Minutes Spent Total Time Spent with Patient: Total time spent is greater than 50% in coordination of care (as documented) at patient's floor/unit and/or counseling patient: Coding Level of Care Code 63155 SUB INP/OBS CARE 3/50MIN Diagnoses Chronic kidney disease N18.9 Hemodialysis status Z99.2 Anemia D64.9 Anemia type: unspecified type Cardiac arrest I46.9 (3) Anemia Anemia type: unspecified type Qualified Code(s): D64.9 - Anemia, unspecified
--- NOTE | 2022-07-27 10:23 | Hospitalist Progress Note ---
Date of Service July 27, 2022 Assessment & Plan (1) Hemodialysis catheter infection: Plan: The patient apparently was placed on levaquin as outpatient on 07/23/22 by his seed potato arranger when the portion of the dialysis catheter tract nearest the clavicle appeared erythematous. He received levaquin x 1 dose while in the hospital here. 07/26 - area of infection worse with visible purulence, subcu induration, and ?small abscess. Dr Clark from [facility] Gen Surg saw patient in consult and has advised transfer to [facility] where vascular surgery is available to assess the catheter. His HD catheter was placed at [facility] 3-4 weeks ago by report. Our lone vascular surgeon - Dr Ruiz - is unavailable until sometime next week. The ongoing concern is that this portion of the catheter is where it dives into the subclavian vein. If the area is incised & drained the catheter may be potentially exposed to air, etc. Day #2 of Rocephin 2gm IV daily + daptomycin. Of note - patient is MRSA + in the nares on POWDERER swab. Fortunately blood cultures are negative. I called [facility] [employer] 07/26/[address] Selina Pool, Hospitalist at [facility]. Dr Pool has accepted the patient in transfer to [place]. Patient aware of the need for transfer. Family also aware. Awaiting bed. . (2) Cardiac arrest: Plan: Occurred while receiving hemodialysis 07/24/22 in [place]. Went unresponsiveness, and by report had ?PEA. s/p ~1 min of CPR. Received Epi and atropine by report as well. ROSC achieved after 1-2 minutes of CPR?? s/p heart cath 07/[address] Harshad Goyal to r/o ischemia as cause of his event. Has known vein graft occlusions x [address] Watts, his primary hide handler in [place]. RESENDEZ-LAD, however, widely patent on cath yesterday. ICD/pacer interrogation did not show any arrhythmia at the time of the event. Thus - did patient have intra-dialysis hypotension leading to syncope? Hypoglycemia? Other? Patient takes Eliquis chronically; thus, PE unlikely. Primary WIRE FRAME LAMP SHADE MAKER event unlikely. No seizure activity seen during the event or here. Although #1 is present, his blood cultures remain negative and thus septicemia not felt to have caused his event. Appreciate cardiology consult by Dr Goyal. Cont tele monitoring. (3) Pulmonary edema: Plan: 2nd to newly diagnosed ESRD. Also with chronic systolic CHF. Pt's daughter showed a summary of pt's weights before & after his recent HD sessions. This shows a wide fluctuation in his weights suggesting ongoing struggles with volume over the last 2 weeks as outpatient. [facility] Nephrology consulted for HD needs. Typical schedule //Thu. He is s/p HD on 07/26 with 3 L of UF obtained. He remains on lasix 40mg BID IV with good UOP. He has made 6 L of urine since admission here. Daily BMP. (4) End stage renal disease: Plan: Recently HD was instituted while hospitalized at [facility] about 3-4 weeks ago. Apparently had pre-existing CKD and then developed JEWEL by report. Has tunneled HD catheter R chest. See #1 above. [facility] Nephrology consulted for HD needs. Cont sevelemer 800mg TID w/ meals. Awaiting transfer to [facility] due to #1 above. (5) Hypoglycemia: Plan: 2nd to long-acting insulin in the setting of ESRD and chronic systolic CHF. Cont to HOLD lantus. Novolog SSI. No further lows. No longer on D10W drip. Hba1c 7.6% Control adequate over last 48 hours. (6) DM type 2 (diabetes mellitus, type 2): Plan: as above (7) HTN (hypertension): Plan: controlled (8) Dyslipidemia: Plan: cont statin (9) Morbid obesity with BMI of 40.0-44.9, adult: Plan: BMI 41 (10) CAD (coronary artery disease): Plan: s/p 3-vessel CABG in the past with known 2 vein grafts occluded. s/p heart cath 07/25/[address] Goyal. RESENDEZ-LAD patent. Cont statin Cont plavix (11) CAD (coronary artery disease) of bypass graft: Plan: as above (12) Above knee amputation of left lower extremity: Plan: also with amputation of 1st/2nd toes, right foot, in the past (13) Anemia: Plan: Fe studies noted. B12/folate noted. IV iron management by nephrology. (14) Elevated troponin: Plan: no evidence of ACS. see above re: heart cath results. myocardial demand ischemia 2nd to syncope? 2nd to ESRD? other? (15) Chronic systolic CHF (congestive heart failure): Plan: EF 45-50% 2nd to ischemic cardiomyopathy? other etiology? cont metoprolol succinate. cont lasix. cont volume control with dialysis. LVEDP was 35 on 07/25/22 heart cath. (16) Chronic anticoagulation: Plan: 2nd to PAF? other? patient was uncertain. Eliquis had been placed on hold due to recent heparin infusion. Heparin now off. But will cont to hold Eliquis due to #1 and potential need for intervention of this issue. Cont plavix. Add heparin 5000 BID SC for DVT proph. (17) Tobacco abuse: Plan pt's daughter updated by phone 07/26/22 DVT proph - add heparin 5000 BID SC Admission and Anticipated Discharge Date Admission Date: July 24, 2022 Subjective patient w/o any complaints this am denies cp, orthopnea, dyspnea at rest, abd pain eating well slept ok overnight remains on NC O2 2 liters - without it he has desats to the 80s tele overnight wnl denies any increased pain over the right neck infection region Review of Systems Review of Systems: gen - no fevers or chills cv - no chest pain pulm - no cough skin - pruritis of legs Physical Exam Physical Exam: gen - resting comfortably in bed, NAD, obese; falls asleep easily during the visit mouth - MMM neck - difficult to assess for JVD due to neck size chest - HD catheter right upper chest, mild bruise or erythema noted at the insertion site but otherwise clean; 3-4 cm superior to the catheter is a small healed incision with visible purulence; with palpation a tiny amount of purulent material exudes; there is ongoing inflammation with an indurated/firm area, about 1.5cm x 1.5cm, suspicious for abscess heart - RRR, s1 s2, no murmur lungs - mild b/l rales bases L>R, no increased work of breathing abd - soft NT ND BS+ ext - left AKA; right leg wrapped in dressings from foot to just below right knee; scaly skin near the right knee; scaly skin over b/l distal thighs; pulses right foot 2+ psych - a/o x 3 musculo - absent 1st/2nd toes on right foot Results & Data Results & Data Vital Signs (Past 12 Hours) Vital Signs Temp Pulse Resp BP Pulse Ox O2 Del Method O2 Flow Rate 07/27/22 08:00 80 07/27/22 07:31 Nasal Cannula 2 07/27/22 05:00 135/79 07/27/22 05:00 82 17 95 07/27/22 04:00 80 28 H 93 07/27/22 04:00 139/79 07/27/22 02:00 96 07/27/22 02:00 132/69 07/27/22 01:00 80 19 93 07/27/22 01:00 136/64 07/27/22 00:00 76 15 96 07/27/22 00:00 121/56 L 07/26/22 23:00 138/62 07/26/22 23:00 77 15 95 07/27/22 03:00 36.7 C 07/27/22 01:57 78 07/26/22 22:45 36.7 C Laboratory Results Laboratory Results - last 24 hr 07/26/22 07/26/22 07/26/22 12:49 16:26 20:08 WBC RBC Hgb Hct MCV MCH MCHC RDW Std Deviation RDW Coeff of Desiree Plt Count MPV Sodium Potassium Chloride Carbon Dioxide Anion Gap BUN Creatinine Est Cr Clr Drug Dosing Est GFR ( Amer) Est GFR (Non-Af Amer) BUN/Creatinine Ratio Glucose POC Glucose 105 H 181 H 170 H Calcium 07/27/22 07/27/22 07/27/22 04:21 04:21 07:22 WBC 4.90 RBC 3.26 L Hgb 8.9 L Hct 29.0 L MCV 89.0 MCH 27.3 MCHC 30.7 L RDW Std Deviation 57.4 H RDW Coeff of Desiree 17.6 H Plt Count 210 MPV 9.6 Sodium 134 L Potassium 4.5 Chloride 102 Carbon Dioxide 27 Anion Gap 5 BUN 32 H D Creatinine 1.91 H D Est Cr Clr Drug Dosing 64.7 Est GFR ( Amer) 44.1 Est GFR (Non-Af Amer) 38.0 BUN/Creatinine Ratio 16.8 Glucose 130 H POC Glucose 132 H Calcium 8.2 L Diagnostic Findings blood cultures 07/24 negative to date PG Care Time/CCT Total # of Minutes Spent Total Time Spent with Patient: Total time spent is greater than 50% in coordination of care (as documented) at patient's floor/unit and/or counseling patient: Coding Level of Care Code 43169 SUB INP/OBS CARE 235MIN Diagnoses Hemodialysis catheter infection T82.7XXA Cardiac arrest I46.9 Pulmonary edema J81.0 Chronicity: acute End stage renal disease N18.6 Hypoglycemia E16.2 DM type 2 (diabetes mellitus, type 2) E11.9 HTN (hypertension) I10 Dyslipidemia E78.5 Morbid obesity with BMI of 40.0-44.9, adult E66.01; Z68.41 CAD (coronary artery disease) I25.10 CAD (coronary artery disease) of bypass graft I25.810 Above knee amputation of left lower extremity S78.112A Anemia D64.9 Anemia type: unspecified type Elevated troponin R77.8 Chronic systolic CHF (congestive heart failure) I50.22 Chronic anticoagulation Z79.01 Tobacco abuse Z72.0 (3) Pulmonary edema Chronicity: acute Qualified Code(s): J81.0 - Acute pulmonary edema (13) Anemia Anemia type: unspecified type Qualified Code(s): D64.9 - Anemia, unspecified
[2022-07-27] MEDS: IRON SUCROSE 200 MG in 0.9 % SODIUM CHLORIDE 100 ML IV SCH (10:26)
[2022-07-27] MEDS: HEPARIN SOD 5,000 UNIT/0.5 ML VIAL SQ SCH ×2 (12:08→20:14)
[2022-07-27] MEDS: cefTRIAXone SODIUM 2,000 MG in DEXTROSE 5% 50 ML IV SCH (12:13)
[2022-07-27] MEDS: DAPTOmycin 425 MG in SYRINGE 0 ML IV SCH (12:13)
[2022-07-27] MEDS: TRIAMCINOLONE ACET 0.1% CR 15 GM TUBE EXT SCH ×2 (14:47→20:13)
[2022-07-27] MEDS: SERTRALINE HCL 50 MG TABLET PO SCH (20:14)
[2022-07-28 04:49] LABS: BUN Creatinine Ratio 18.5 (10-20); Calcium 8.5 mg/dl (8.6-10.3); Creatinine Clr Calc Pharmacy 63.9 ml/min; Est GFR (African American) 44.7 ml/min; Est GFR (Non-African American) 38.5 ml/min; Potassium 4.6 mmol/L (3.5-5.1)
[2022-07-28 05:08] LABS: Hematocrit (blood only) 29.8 % (42.0-52.0); Mean Corpuscular Hemoglobin 27.3 pg (25.0-34.0); Mean Corpuscular Hgb Conc 30.2 g/dL (32.0-36.0); Mean Corpuscular Volume 90.3 fL (80.0-100.0); Mean Platelet Volume 9.8 fL (9.4-12.4); Platelet Count 220 K/uL (130-400); RDW Coefficient of Variation 17.4 % (11.5-14.5); RDW Standard Deviation 57.4 fL (36.4-46.3); White Blood Count 5.43 K/ul (4.8-10.8)
[2022-07-28] MEDS: PANTOprazole 40 MG TAB PO SCH (06:09)
[2022-07-28] MEDS: SEVELAMER HCL 800 MG TABLET PO SCH ×3 (07:58→16:56)
[2022-07-28] MEDS: FUROSEMIDE 40 MG/4 ML VIAL IV SCH ×2 (07:59→20:19)
[2022-07-28] MEDS: METOPROLOL SUCC 50MG EXT REL TAB PO SCH (07:59)
[2022-07-28] MEDS: HEPARIN SOD 5,000 UNIT/0.5 ML VIAL SQ SCH ×2 (07:59→20:19)
[2022-07-28] MEDS: CLOPIDOGREL BISULFATE 75 MG TAB PO SCH (07:59)
[2022-07-28] MEDS: TRIAMCINOLONE ACET 0.1% CR 15 GM TUBE EXT SCH ×3 (08:00→20:20)
[2022-07-28] MEDS: TAMSULOSIN HCL 0.4 MG CAP PO SCH (08:00)
[2022-07-28] MEDS: VENLAFAXINE HCL XR 150 MG CAPXR PO SCH (08:00)
[2022-07-28] MEDS: INSULIN ASPART PER UNIT CHARGE SC SCH ×4 (08:02→21:10)
--- NOTE | 2022-07-28 08:41 | Nephrology Progress Note ---
Date of Service July 28, 2022 Assessment & Plan (1) Chronic kidney disease: Plan: * HD initiated ~ 2weeks ago at [facility] by Dr. Estrella - JEWEL/CKD with potential for recovery. Patient now dialyzes at [facility] under the care of Dr. Nesbitt * Outpatient HD: [facility] TTS 4.5 hr F-180, Qb 400, Qd 800, 2K 2.5 Ca HCO3 35. EDW 138 kg. Heparin 2000 bolus and 1000 per hour. * Patient was dialyzed yesterday for 3 L UF without complication * R IJ TCC - Small volume of purulent fluid expressed from proximal insertion site. The patient has a tunnel infection. He is currently afebrile, hemodynamically stable and has no leukocytosis. 07/24/22 blood cultures x2 are negative. He is currently on IV Daptomycin and Ceftriaxone therapy. Agree that HD catheter will need to be removed. Patient appears to be recovering kidney function. Once catheter is removed he will need to be observed closely to determine whether he may remain off dialysis. Awaiting Vascular Surgery evaluation here if available or transfer to [facility] if not (2) Hemodialysis status: Plan: * Renal diet. Continue Fosrenol 50 mg TIDM for hyperphosphatemia. 1.2 L daily fluid restriction. * UO 3700 cc last 24 hrs. Cr stable at 1.89. Patient appears to be recovering kidney function. Electrolyte balance is acceptable. Continue to monitor UO, PRP closely (3) Anemia: Plan: * Chronic. Outpatient Hgb 9.3 07/22/22. Maintained on Micera 75 q 2 weeks as outpatient * Iron saturation 16% w/ ferritin 299. Day #3 of 5 IV Venofer (4) Cardiac arrest: Plan: * 07/25/22 cardiac cath results reviewed. No lesions amenable to intervention Admission and Anticipated Discharge Date Admission Date: July 24, 2022 Subjective Mr. Yarbrough was evaluated in the ICU this morning. He was last dialyzed Thursday for 3 L UF without complication. This morning he denies fever, angina, dyspnea or uremic symptoms. He has a Olson catheter in place Review of Systems Constitutional: no fever Eyes: no problem reported Ear, Nose, Mouth, Throat: no problem reported Respiratory: no dyspnea Cardiovascular: no chest pain Gastrointestinal: no abdominal pain, no nausea, no vomiting and no diarrhea/loose stools Genitourinary: no dysuria, no hematuria or no flank pain Neurologic: no confusion Physical Exam Constitutional: + obese; not in distress Eyes: PERRL, conjunctivae normal, anicteric sclerae ENMT: external ear and nose normal, oropharynx normal Neck: + thick neck (small quantity of purulent drainage proximal insertion site for TCC ) Respiratory: normal respiratory effort, lungs clear to auscultation Cardiovascular: Rate/Rhythm: regular rate and regular rhythm Gastrointestinal (Abdomen): Inspection/Auscultation: normal bowel sounds Pe rcussion/Palpation: abdomen soft; abdomen nontender and no guarding Neurologic: Speech / Cognition: normal speech and normal cognition Genitourinary: + scrotal swelling Results & Data Vital Signs (Past 12 Hours) Vital Signs Temp Pulse Pulse Resp BP Pulse Ox O2 Del Method 07/28/22 04:23 36.8 C 82 17 141/78 H 97 Nasal Cannula 07/27/22 22:00 07/27/22 23:00 36.6 C 82 16 137/80 98 Nasal Cannula 07/28/22 00:00 81 O2 Del Method O2 Flow Rate O2 Flow Rate 07/28/22 04:23 2 07/27/22 22:00 Nasal Cannula 2 07/27/22 23:00 2 07/28/22 00:00 Laboratory Results Laboratory Tests 07/28/22 07/28/22 03:57 03:57 WBC 5.43 Hgb 9.0 L Hct 29.8 L Plt Count 220 Sodium 135 L Potassium 4.6 Chloride 102 Carbon Dioxide 27 BUN 35 H Creatinine 1.89 H Glucose 104 H PG Care Time/CCT Total # of Minutes Spent Total Time Spent with Patient: Total time spent is greater than 50% in coordination of care (as documented) at patient's floor/unit and/or counseling patient: Coding Level of Care Code 47412 SUB INP/OBS CARE 3/50MIN Diagnoses Chronic kidney disease N18.9 Hemodialysis status Z99.2 Anemia D64.9 Anemia type: unspecified type Cardiac arrest I46.9 (3) Anemia Anemia type: unspecified type Qualified Code(s): D64.9 - Anemia, unspecified
--- NOTE | 2022-07-28 10:04 | Consultation ---
Date of Consultation July 28, 2022 Assessment & Plan (1) Hemodialysis catheter infection: Likely infection of R IJ permcath, although blood cultures have remained negative. Planning for removal of catheter later this AM. Procedure, risks, benefits, and alternatives discussed with pt at Dr Ruiz's request. Pt expresses understandiing and agreement. Patient was seen, examined, and chart reviewed. Agree with exam and treatment plan of the Vascular PA. History of Present Illness Reason for Consultation: infected permcath Attending Physician: Daryn May MD History of Present Illness 57 yo m with multiple medical problems, including ESRD on HD, CHF, CAD s/p cabg, LLE AKA, DMII, HTN, anemia, admitted after possible cardiac arrest at HD unit, and found to have infected permcath, seen in consultation today for removal of permcath. There is concern for possible MRSA infection, as his nares are positive. Catheter noted to be erythematous and tender and warm. Pt admits fatigue/malaise. Denies LEVIN, fever, chest pain, SOB, abd pain, N/V, other complaints. Pt blood cultures were negative. Catheter has been in place for about 4 weeks, placed at [facility]. Allergies Allergy/AdvReac Type Severity Reaction Status Date / Time No Known Allergies Allergy Mild * Verified 07/24/22 14:50 Home Medications Medication Instructions Recorded Confirmed Type Lactobacillus acidophilus-pectin 1 tab PO DAILY 07/24/22 07/24/22 History 30 mg-20 mg tablet acetaminophen 325 mg tablet 650 mg PO Q4H PRN PAIN/FEVER 07/24/22 07/24/22 History (Tylenol) apixaban 5 mg tablet (Eliquis) 5 mg PO BID 07/24/22 07/24/22 History atorvastatin 80 mg tablet 80 mg PO HS 07/24/22 07/24/22 History bumetanide 1 mg tablet 2 mg PO BID 07/24/22 07/24/22 History cholecalciferol (vitamin D3) 50 50 mcg PO DAILY 07/24/22 07/24/22 History mcg (2,000 unit) capsule (Vitamin D3) clopidogrel 75 mg tablet 75 mg PO DAILY 07/24/22 07/24/22 History fenofibrate 160 mg tablet 160 mg PO HS 07/24/22 07/24/22 History gabapentin 100 mg capsule 100 mg PO BID 07/24/22 07/24/22 History insulin aspart U-100 100 unit/mL See Rx Instructions .Route .COMPLEX 07/24/22 07/25/22 History (3 mL) subcutaneous pen (Novolog FlexPen U-100 Insulin aspart) insulin glargine 100 unit/mL (3 30 unit subcut BID 07/24/22 07/25/22 History mL) subcutaneous pen (Basaglar KwikPen U-100 Insulin) lanthanum 750 mg chewable tablet 750 mg PO TIDM 07/24/22 07/24/22 History (Fosrenol) levofloxacin 250 mg tablet 500 mg PO DAILY 07/24/22 07/24/22 History metoprolol succinate 100 mg 100 mg PO DAILY 07/24/22 07/24/22 History tablet,extended release 24 hr pantoprazole 40 mg tablet,delayed 40 mg PO DAILYBB 07/24/22 07/24/22 History release sertraline 50 mg tablet 50 mg PO HS 07/24/22 07/24/22 History tamsulosin 0.4 mg capsule 0.4 mg PO DAILY 07/24/22 07/24/22 History venlafaxine 150 mg 150 mg PO DAILY 07/24/22 07/24/22 History capsule,extended release 24 hr vitamin B complex-vitamin C-folic 1 tab PO DAILY 07/24/22 07/24/22 History acid 0.8 mg tablet (Nephro-Shaan) Patient History Medical History Amputated great toe of left foot "due to osteomyelitis/diabetic ulcer" Dialysis patient DM type 2 (diabetes mellitus, type 2) Dyslipidemia End stage renal disease HTN (hypertension) Tobacco abuse Social History Smoking Status: Current every day smoker Cigarettes Per Day: 1/2 pack; Hx Alcohol Use: Yes Alcohol type: beer and hard liquor Hx Substance Use: No Preferred Language: [place] Communication Ability: Effective Director Of Exhibits Required: No Beliefs That Will Affect Care: None Current Living Situation: Family Current Living Situation Comment: lives with daughter Other Information That Helps Us Care for You: No Feels Safe at Home: Yes Safety Concerns: Feels Safe At This Time Assistive Devices: Walker and Wheelchair Review of Systems Review of Systems: All systems reviewed & are unremarkable except as noted in HPI & below Physical Exam Constitutional: WD/WN, vitals as above + morbidly obese, + disheveled, cooperative and comfortable; not in distress Neck: trachea midline Respiratory: normal respiratory effort Auscultation: lungs clear to auscultation bilaterally and + diminished lung sounds Cardiovascular: Rate/Rhythm: regular rate and regular rhythm Vessels: posterior tibial pulses present (LLE AKA, RLE dressing covering area), dorsalis pedis pulses present (LLE AKA, RLE dressing covering area. Not assessed) and radial pulses present; + abnormal peripheral pulses Extremities: normal capillary refill and + vascular access device (R IJ permcath +local tenderness, erythema) Gastrointestinal (Abdomen): Inspection/Auscultation: abdomen normal to inspection and normal bowel sounds Percussion/Palpation: abdomen soft; abdomen nontender Musculoskeletal: no cyanosis or clubbing, extremities motor strength 5/5 (LLE AKA) Skin: + wound (RLE dressings in place) Neurologic: moves all extremities and awake; no focal motor deficits and not confused Psychiatric: A+Ox3, euthymic affect Results & Data Vital Signs (Past 12 Hours) Vital Signs Temp Pulse Pulse Pulse Resp BP Pulse Ox 07/28/22 08:00 07/28/22 08:00 36.7 C 83 16 151/81 H 96 07/28/22 04:23 36.8 C 82 17 141/78 H 97 07/27/22 23:00 36.6 C 82 16 137/80 98 07/28/22 00:00 81 O2 Del Method O2 Flow Rate 07/28/22 08:00 Nasal Cannula 2 07/28/22 08:00 Nasal Cannula 2 07/28/22 04:23 Nasal Cannula 2 07/27/22 23:00 Nasal Cannula 2 07/28/22 00:00
[2022-07-28] MEDS ORDERED: LIDOCAINE 1% LOCAL 20 ML VIAL INJ ONE (11:06)
[2022-07-28] MEDS ORDERED: BUPIVACAINE/EPINEPHRINE 0.5% MPF 1:200,000 10 ML VIAL INFIL ONE (11:07)
--- NOTE | 2022-07-28 11:21 | Operative Report ---
Post Operative Report Pre & Post Diagnosis Operation Date: 07/28/22 11:00 Pre-Op Diagnosis: Hemodialysis catheter infection Post-Op Diagnosis: Hemodialysis catheter infection I identified the patient and participated in the time-out.: Yes Procedure Operation Date: 07/28/22 11:00 Actual Procedures p Removal of Perm Catheter(Right) - Adalberto Ruiz MD Surgeon Adalberto Ruiz MD Land Survey Technician none Estimated Blood Loss 3 Findings Consistent with Post-Op Diagnosis Specimens catheter tip for culture Anesthesia Type Local Complications none Disposition Accompanied Patient To Recovery: No Disposition: Recovery Room Indications This is a 57-year-old male with a PermCath in place. The incision site in the neck for the insertion appears to be infected. It is red and inflamed. Removal of the catheter was recommended. I have discussed the risks options and benefits of the procedure with the patient. The patient understands the risks options and benefits and agrees to the procedure. Description of Procedure The patient was taken to the angio suite and placed in the supine position. The patient was identified and a timeout performed. The right side of the neck, chest wall and catheter were prepped and draped in a sterile manner. Local anesthesia was then accomplished. Using sharp and blunt dissection, the cuff of the permcath was freed up from the surrounding fibrous tissue. The permcath and cuff were completely removed. Pressure was then applied and adequate hemostasis was obtained. A sterile dressing was then applied. The patient left the operation room in satisfactory condition and tolerated the procedure well. All needle and sponge counts were correct at the end of the procedure. I attest to the content of the Intraoperative Record and any orders documented therein. Any exceptions are noted below.
[2022-07-28] MEDS: IRON SUCROSE 200 MG in 0.9 % SODIUM CHLORIDE 100 ML IV SCH (11:23)
[2022-07-28] MEDS: cefTRIAXone SODIUM 2,000 MG in DEXTROSE 5% 50 ML IV SCH (12:05)
[2022-07-28] MEDS: DAPTOmycin 425 MG in SYRINGE 0 ML IV SCH (12:05)
--- NOTE | 2022-07-28 18:12 | Hospitalist Progress Note ---
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 He received levaquin x 1 dose while in the hospital here. 07/26 - area of infection worse with visible purulence, subcu induration, and ?small abscess. Dr Clark from [facility] Surg saw patient and advised Tx to [facility] for catheter management. His HD catheter was placed at [facility] 3-4 weeks ago by report. Although patient had been accepted to [place] there have been no beds. Patient seen today by Dr Ruiz who removed the catheter in the OR; tip sent for culture. Today is day #3 of Rocephin 2gm IV daily + daptomycin. Of note - patient is MRSA + in the nares on CART ATTENDANT swab. Fortunately blood cultures remain negative. Since catheter has been removed can cancel transfer to [facility]. (2) Cardiac arrest: Plan: Occurred while receiving hemodialysis 07/24/22 in [place]. Went unresponsiveness, and by report had ?PEA. s/p ~1 min of CPR. Received Epi and atropine by report as well. ROSC achieved after 1-2 minutes of CPR?? s/p heart cath 07/[address] Harshad Goyal to r/o ischemia as cause of his event. Has known vein graft occlusions x [address] Watts, his primary poultry picker in [place]. RESENDEZ-LAD, however, widely patent on cath yesterday. ICD/pacer interrogation did not show any arrhythmia at the time of the event. Thus - did patient have intra-dialysis hypotension leading to syncope? Hypoglycemia? Other? Patient takes Eliquis chronically; thus, PE unlikely. Primary EMPLOYMENT CLERK event unlikely. No seizure activity seen during the event or here. Although #1 is present, his blood cultures remain negative and thus septicemia not felt to have caused his event. Appreciate cardiology consult by Dr Goyal. (3) Pulmonary edema: Plan: 2nd to newly diagnosed advanced CKD/ESRD. Also with chronic systolic CHF but likely that the primary issue is his kidney disease not the heart. [facility] Nephrology consulted for HD needs. Typical schedule //Thu. He is s/p HD on 07/26 with 3 L of UF obtained. He remains on lasix 40mg BID IV with robust UOP. (4) End stage renal disease: Plan: Recently HD was instituted while hospitalized at [facility] about 3-4 weeks ago. Apparently had pre-existing CKD and then developed JEWEL by report. see #1 above re: removal of HD catheter. Cont sevelemer 800mg TID w/ meals for now. Last HD session was 07/26. On 07/27 his creatinine was <2. Today his creatinine again was <2. If tomorrow's creatinine remains <2 this would argue that he is having renal recovery from his recent JEWEL. Perhaps we will be able to hold off on placing a new HD catheter and resuming dialysis. (5) Hypoglycemia: Plan: 2nd to long-acting insulin in the setting of ESRD and chronic systolic CHF. Cont to HOLD lantus. Novolog SSI. No further lows. No longer on D10W drip. Hba1c 7.6% Control adequate over last 48 hours. Patient had low BSG the AM of his cardiac event. Perhaps he was low during the cardiac event? (6) DM type 2 (diabetes mellitus, type 2): Plan: as above (7) HTN (hypertension): Plan: controlled (8) Dyslipidemia: Plan: cont statin (9) Morbid obesity with BMI of 40.0-44.9, adult: Plan: BMI now <40 (10) CAD (coronary artery disease): Plan: s/p 3-vessel CABG in the past with known 2 vein grafts occluded. s/p heart cath 07/25/[address] Goyal. RESENDEZ-LAD patent. Cont statin Cont plavix (11) CAD (coronary artery disease) of bypass graft: Plan: as above (12) Above knee amputation of left lower extremity: Plan: also with amputation of 1st/2nd toes, right foot, in the past (13) Anemia: Plan: Fe studies noted. B12/folate noted. IV iron management by nephrology. (14) Elevated troponin: Plan: no evidence of ACS. see above re: heart cath results. myocardial demand ischemia 2nd to syncope? 2nd to ESRD? other? suspect the troponin was due to myocardial demand ischemia (15) Chronic systolic CHF (congestive heart failure): Plan: EF 45-50% 2nd to ischemic cardiomyopathy? other etiology? cont metoprolol succinate. cont lasix. cont volume control with dialysis. LVEDP was 35 on 07/25/22 heart cath. (16) Chronic anticoagulation: Plan: 2nd to PAF? other? patient was uncertain. Eliquis currently on hold. If on 07/29 the patient is stable from a renal standpoint and won't need replacement of his HD catheter would stop SC heparin and resume Eliquis 5mg BID. (17) Tobacco abuse: (18) Generalized rash: Plan: scabies? eczema? other? patient treated for scabies about 4-6 weeks ago treated 2x's despite such still with generalized rash this still could be scabies thus place on permethrin cream from head to upper thighs tonight jose 60mg daily for itching if rash does not improve then dermatology consultation patient is already on contact derm Plan pt's daughter updated by phone 07/26/22 and 07/28/22 DVT proph - heparin 5000 BID SC until Eliquis is resumed PT, OT janet Admission and Anticipated Discharge Date Admission Date: July 24, 2022 Subjective tele stable overnight this AM I corresponded with Dr Wilcox from nephrology re: the patient's HD catheter it became known that Dr Ruiz from vascular surgery was available for consultation subsequently I spoke with Dr Ruiz who confirmed he was available and would take Mr Way to the OR for permcath removal permcath was removed w/o incident by Dr Ruiz I saw the patient post-op in the afternoon he was resting comfortably he was actively scratching his legs and lower abdomen he denied any dyspnea, cp, or pain in any location with respect to his itching & rash - present for several months was treated for scabies about a month ago - perhaps a little longer received 2 treatments for possible scabies states rash did not improve with Rx no other persons in his household have a similar rash denies rash in groin region or on hands rash does itch at night-time hydrocortisone helps a little with itching Review of Systems Review of Systems: gen - no fevers cv - no orthopnea pulm - no cough GI - no abd pain or N/V Physical Exam Physical Exam: gen - resting comfortably in bed, NAD, obese; scratching his rash on torso/abdomen and upper legs mouth - MMM neck - no obvious JVD chest - HD catheter has been removed; dressing in place over former access site; just inferior to the clavicle is the small skin abscess - today it is less indurated, less red, and purulence is less heart - RRR, s1 s2, no murmur lungs - minimal rales bases; cta b/l otherwise abd - soft NT ND BS+ ext - left AKA; right leg wrapped in dressings from foot to just below right knee; foot pulses on right 2+ psych - a/o x 3 musculo - absent 1st/2nd toes on right foot skin - extensive erythematous, scaly rash with ? burrows over dorsum hands (but not the webspaces), arms, torso/abdominal wall, upper legs (extensive); genitalia not affected Results & Data Results & Data Vital Signs (Past 12 Hours) Vital Signs Temp Pulse Pulse Pulse Resp BP BP 07/28/22 15:58 36.7 C 75 16 141/75 H 07/28/22 11:34 36.7 C 86 16 156/89 H 07/28/22 11:07 80 16 172/97 H 07/28/22 11:06 80 16 165/97 H 07/28/22 11:01 79 16 157/89 H 07/28/22 10:55 80 16 147/90 H 07/28/22 10:02 36.7 C 81 20 140/83 07/28/22 08:00 07/28/22 08:00 36.7 C 83 16 151/81 H Pulse Ox O2 Del Method O2 Flow Rate 07/28/22 15:58 95 Nasal Cannula 2 07/28/22 11:34 95 Nasal Cannula 2 07/28/22 11:07 92 Room Air 07/28/22 11:06 91 Room Air 07/28/22 11:01 91 Room Air 07/28/22 10:55 93 Room Air 07/28/22 10:02 98 Nasal Cannula 3 07/28/22 08:00 Nasal Cannula 2 07/28/22 08:00 96 Nasal Cannula 2 Laboratory Results Laboratory Results - last 24 hr 07/27/22 07/28/22 07/28/22 19:47 03:57 03:57 WBC 5.43 RBC 3.30 L Hgb 9.0 L Hct 29.8 L MCV 90.3 MCH 27.3 MCHC 30.2 L RDW Std Deviation 57.4 H RDW Coeff of Desiree 17.4 H Plt Count 220 MPV 9.8 Sodium 135 L Potassium 4.6 Chloride 102 Carbon Dioxide 27 Anion Gap 6 BUN 35 H Creatinine 1.89 H Est Cr Clr Drug Dosing 63.9 Est GFR ( Amer) 44.7 Est GFR (Non-Af Amer) 38.5 BUN/Creatinine Ratio 18.5 Glucose 104 H POC Glucose 133 H Calcium 8.5 L 07/28/22 07/28/22 07/28/22 07:14 11:25 15:53 WBC RBC Hgb Hct MCV MCH MCHC RDW Std Deviation RDW Coeff of Desiree Plt Count MPV Sodium Potassium Chloride Carbon Dioxide Anion Gap BUN Creatinine Est Cr Clr Drug Dosing Est GFR ( Amer) Est GFR (Non-Af Amer) BUN/Creatinine Ratio Glucose POC Glucose 107 H 146 H 152 H Calcium PG Care Time/CCT Total # of Minutes Spent Total Time Spent with Patient: Total time spent is greater than 50% in coordination of care (as documented) at patient's floor/unit and/or counseling patient: Coding Level of Care Code 32985 SUB INP/OBS CARE 3/50MIN Diagnoses Hemodialysis catheter infection T82.7XXA Cardiac arrest I46.9 Pulmonary edema J81.0 Chronicity: acute End stage renal disease N18.6 Hypoglycemia E16.2 DM type 2 (diabetes mellitus, type 2) E11.9 HTN (hypertension) I10 Dyslipidemia E78.5 Morbid obesity with BMI of 40.0-44.9, adult E66.01; Z68.41 CAD (coronary artery disease) I25.10 CAD (coronary artery disease) of bypass graft I25.810 Above knee amputation of left lower extremity S78.112A Anemia D64.9 Anemia type: unspecified type Elevated troponin R77.8 Chronic systolic CHF (congestive heart failure) I50.22 Chronic anticoagulation Z79.01 Tobacco abuse Z72.0 Generalized rash R21 (3) Pulmonary edema Chronicity: acute Qualified Code(s): J81.0 - Acute pulmonary edema (13) Anemia Anemia type: unspecified type Qualified Code(s): D64.9 - Anemia, unspecified
[2022-07-28] MEDS: FEXOFENADINE 60 MG TAB PO SCH (19:47)
[2022-07-28] MEDS: PERMETHRIN 5% CR 60 GM TUBE EXT SCH (20:18)
[2022-07-28] MEDS: SERTRALINE HCL 50 MG TABLET PO SCH (20:21)
[2022-07-29] MEDS: PANTOprazole 40 MG TAB PO SCH (05:30)
[2022-07-29 06:28] LABS: Hematocrit (blood only) 29.1 % (42.0-52.0); Mean Corpuscular Hemoglobin 27.4 pg (25.0-34.0); Mean Corpuscular Hgb Conc 30.9 g/dL (32.0-36.0); Mean Corpuscular Volume 88.4 fL (80.0-100.0); Mean Platelet Volume 9.9 fL (9.4-12.4); Platelet Count 221 K/uL (130-400); RDW Coefficient of Variation 17.2 % (11.5-14.5); RDW Standard Deviation 55.9 fL (36.4-46.3); Red Blood Count 3.29 M/uL (4.70-6.10); White Blood Count 5.21 K/ul (4.8-10.8)
[2022-07-29 06:44] LABS: BUN Creatinine Ratio 18.9 (10-20); Calcium 8.7 mg/dl (8.6-10.3); Creatinine Clr Calc Pharmacy 59.9 ml/min; Est GFR (African American) 41.5 ml/min; Est GFR (Non-African American) 35.8 ml/min; Potassium 4.7 mmol/L (3.5-5.1)
[2022-07-29] MEDS: INSULIN ASPART PER UNIT CHARGE SC SCH ×4 (08:04→20:57)
[2022-07-29] MEDS: SEVELAMER HCL 800 MG TABLET PO SCH ×3 (08:10→17:07)
[2022-07-29] MEDS: CLOPIDOGREL BISULFATE 75 MG TAB PO SCH (08:12)
[2022-07-29] MEDS: FEXOFENADINE 60 MG TAB PO SCH (08:12)
[2022-07-29] MEDS: FUROSEMIDE 40 MG/4 ML VIAL IV SCH (08:13)
[2022-07-29] MEDS: METOPROLOL SUCC 50MG EXT REL TAB PO SCH (08:13)
[2022-07-29] MEDS: TAMSULOSIN HCL 0.4 MG CAP PO SCH (08:14)
[2022-07-29] MEDS: TRIAMCINOLONE ACET 0.1% CR 15 GM TUBE EXT SCH ×3 (08:14→21:01)
[2022-07-29] MEDS: VENLAFAXINE HCL XR 150 MG CAPXR PO SCH (08:14)
[2022-07-29] MEDS: HEPARIN SOD 5,000 UNIT/0.5 ML VIAL SQ SCH ×2 (08:18→20:59)
--- NOTE | 2022-07-29 08:45 | Nephrology Progress Note ---
Date of Service July 29, 2022 Assessment & Plan (1) Chronic kidney disease: Plan: * HD initiated 07/20 at [facility] by Dr. Estrella - JEWEL/CKD with potential for recovery. Patient had been dialyzing as outpatient at [facility] under the care of Dr. Nesbitt * Outpatient HD: [facility] TTS 4.5 hr F-180, Qb 400, Qd 800, 2K 2.5 Ca HCO3 35. EDW 138 kg. Heparin 2000 bolus and 1000 per hour. * Patient was last dialyzed 07/26/22 without complication * R IJ TCC removed 07/28/22 due to infection at the proximal insertion site. Site now looks clean. No purulence could be expressed this am * Cr 1.9 following HD 07/26. Kidney function remains stable at this time * 3 L UO yesterday in response to IV diuretic therapy. Will reduce Furosemide to 40 mg IV daily. Continue to monitor volume status, UO. * Keep Olson in today. May be able to remove in am (2) Hemodialysis status: Plan: * Renal diet. Continue Fosrenol 50 mg TIDM for hyperphosphatemia. 1.2 L daily fluid restriction. * Patient appears to be recovering kidney function. Electrolyte balance is acceptable. No acute indication for HD today. Continue to monitor UO, PRP closely (3) Anemia: Plan: * Chronic. Outpatient Hgb 9.3 07/22/22. Maintained on Micera 75 q 2 weeks as outpatient * Iron saturation 16% w/ ferritin 299. Day #4 of 5 IV Venofer * Will provide SQ Epogen today (4) Cardiac arrest: Plan: * 07/25/22 cardiac cath results reviewed. No lesions amenable to intervention Admission and Anticipated Discharge Date Admission Date: July 24, 2022 Subjective Mr. Yarbrough was evaluated in his hospital room this morning. He was last dialyzed 07/26/22 without complication. His R IJ TCC was removed 07/28/22 due to infection at the proximal insertion site. Mr. Yarbrough still has a Olson catheter in place. He denies fever, dyspnea or uremic symptoms. He notes that the swelling in his RLE and genital area are improved Review of Systems Constitutional: no fever Eyes: no problem reported Ear, Nose, Mouth, Throat: no problem reported Respiratory: no dyspnea Cardiovascular: no chest pain Gastrointestinal: no abdominal pain, no nausea, no vomiting and no diarrhea/loose stools Genitourinary: no dysuria, no hematuria or no flank pain Neurologic: no confusion Physical Exam Constitutional: + obese; not in distress Eyes: PERRL, conjunctivae normal, anicteric sclerae ENMT: external ear and nose normal, oropharynx normal Neck: + thick neck (R IJ TCC has been removed. No drainage from site ) Respiratory: normal respiratory effort, lungs clear to auscultation Cardiovascular: Rate/Rhythm: regular rate and regular rhythm Extremities: + edema (1+ RLE pretibial pitting edema) Gastrointestinal (Abdomen): Inspection/Auscultation: normal bowel sounds Percussion/Palpation: abdomen soft; abdomen nontender and no guarding Neurologic: Speech / Cognition: normal speech and normal cognition Genitourinary: no scrotal swelling Results & Data Vital Signs (Past 12 Hours) Vital Signs Temp Pulse Pulse Pulse Resp BP Pulse Ox 07/29/22 06:57 36.8 C 81 19 140/67 98 07/29/22 03:04 36.6 C 76 18 142/72 H 95 07/28/22 23:35 77 07/28/22 23:34 75 07/28/22 23:07 36.6 C 76 18 144/75 H 96 07/28/22 22:00 Pulse Ox O2 Del Method O2 Del Method O2 Flow Rate O2 Flow Rate 07/29/22 06:57 Nasal Cannula 2 07/29/22 03:04 Nasal Cannula 07/28/22 23:35 07/28/22 23:34 07/28/22 23:07 Nasal Cannula 07/28/22 22:00 93 Nasal Cannula 2 Laboratory Results Laboratory Tests 07/27/22 07/28/22 07/29/22 04:21 03:57 05:56 WBC 5.21 Hgb 9.0 L Hct 29.1 L Plt Count 221 Sodium Potassium Chloride Carbon Dioxide BUN Creatinine 1.91 H D 1.89 H Glucose 07/29/22 05:56 WBC Hgb Hct Plt Count Sodium 136 Potassium 4.7 Chloride 102 Carbon Dioxide 28 BUN 38 H Creatinine 2.01 H Glucose 148 H PG Care Time/CCT Total # of Minutes Spent Total Time Spent with Patient: Total time spent is greater than 50% in coordination of care (as documented) at patient's floor/unit and/or counseling patient: Coding Level of Care Code 38492 SUB INP/OBS CARE MIN Diagnoses Chronic kidney disease N18.9 Hemodialysis status Z99.2 Anemia D64.9 Anemia type: unspecified type Cardiac arrest I46.9 (3) Anemia Anemia type: unspecified type Qualified Code(s): D64.9 - Anemia, unspecified
[2022-07-29] MEDS ORDERED: EPOETIN ALFA 10,000 UNITS/ML VIAL SQ ONE (09:41)
[2022-07-29] MEDS: IRON SUCROSE 200 MG in 0.9 % SODIUM CHLORIDE 100 ML IV SCH (10:13)
[2022-07-29] MEDS: cefTRIAXone SODIUM 2,000 MG in DEXTROSE 5% 50 ML IV SCH (12:03)
[2022-07-29] MEDS: DAPTOmycin 425 MG in SYRINGE 0 ML IV SCH (12:03)
[2022-07-29] MEDS: SERTRALINE HCL 50 MG TABLET PO SCH (21:00)
--- NOTE | 2022-07-29 21:26 | Hospitalist Progress Note ---
Date of Service July 29, 2022 Assessment & Plan (1) Hemodialysis catheter infection: Plan: The patient apparently was placed on levaquin as outpatient on 07/23/22 by his medical sales when the portion of the dialysis catheter tract nearest the clavicle appeared erythematous. He received levaquin x 1 dose while in the hospital here. 07/26 - area of infection worse with visible purulence, subcu induration, and ?small abscess. Dr Clark from [facility] Surg saw patient and advised Tx to [facility] for catheter management. His HD catheter was placed at [facility] 3-4 weeks ago by report. Although patient had been accepted to [place] there have been no beds. Patient seen today by Dr Ruiz who removed the catheter in the OR; tip sent for culture. Today: #4 of Rocephin 2gm IV daily + daptomycin. Awaiting culture. Of note - patient is MRSA + in the nares on FIGHTER PILOT swab. Fortunately blood cultures remain negative. Since catheter has been removed can cancel transfer to [facility]. (2) Cardiac arrest: Plan: Occurred while receiving hemodialysis 07/24/22 in [place]. Went unresponsiveness, and by report had ?PEA. s/p ~1 min of CPR. Received Epi and atropine by report as well. ROSC achieved after 1-2 minutes of CPR?? s/p heart cath 07/[address] Harshad Goyal to r/o ischemia as cause of his event. Has known vein graft occlusions x [address] Watts, his primary kayak maker in [place]. RESENDEZ-LAD, however, widely patent on cath yesterday. ICD/pacer interrogation did not show any arrhythmia at the time of the event. Thus - did patient have intra-dialysis hypotension leading to syncope? Hypoglycemia? Other? Patient takes Eliquis chronically; thus, PE unlikely. 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 No seizure activity seen during the event or here. Although #1 is present, his blood cultures remain negative and thus septicemia not felt to have caused his event. Appreciate cardiology consult by Dr Goyal. (3) Pulmonary edema: Plan: 2nd to newly diagnosed advanced CKD/ESRD. Also with chronic systolic CHF but likely that the primary issue is his kidney disease not the heart. [facility] Nephrology consulted for HD needs. Typical schedule //Thu. He is s/p HD on 07/26 with 3 L of UF obtained. He remains on lasix 40mg BID IV with robust UOP. (4) End stage renal disease: Plan: Recently HD was instituted while hospitalized at [facility] about 3-4 weeks ago. Apparently had pre-existing CKD and then developed JEWEL by report. see #1 above re: removal of HD catheter. Cont sevelemer 800mg TID w/ meals for now. Last HD session was 07/26. On 07/27-07/28 his creatinine was <2. 5/2: his creatinine 2. Appears to have renal recovery. Perhaps we will be able to hold off on placing a new HD catheter and resuming dialysis. (5) Hypoglycemia: Plan: 2nd to long-acting insulin in the setting of ESRD and chronic systolic CHF. Cont to HOLD lantus. Novolog SSI. No further lows. No longer on D10W drip. Hba1c 7.6% Control adequate over last 48 hours. Patient had low BSG the AM of his cardiac event. Perhaps he was low during the cardiac event? (6) DM type 2 (diabetes mellitus, type 2): Plan: as above (7) HTN (hypertension): Plan: controlled (8) Dyslipidemia: Plan: cont statin (9) Morbid obesity with BMI of 40.0-44.9, adult: Plan: BMI now <40 (10) CAD (coronary artery disease): Plan: s/p 3-vessel CABG in the past with known 2 vein grafts occluded. s/p heart cath 07/25/[address] Goyal. MAL-LAD patent. Cont statin Cont plavix (11) CAD (coronary artery disease) of bypass graft: Plan: as above (12) Above knee amputation of left lower extremity: Plan: also with amputation of 1st/2nd toes, right foot, in the past (13) Anemia: Plan: Fe studies noted. B12/folate noted. IV iron management by nephrology. (14) Elevated troponin: Plan: no evidence of ACS. see above re: heart cath results. myocardial demand ischemia 2nd to syncope? 2nd to ESRD? other? suspect the troponin was due to myocardial demand ischemia (15) Chronic systolic CHF (congestive heart failure): Plan: EF 45-50% 2nd to ischemic cardiomyopathy? other etiology? cont metoprolol succinate. cont lasix. cont volume control with dialysis. LVEDP was 35 on 07/25/22 heart cath. (16) Chronic anticoagulation: Plan: 2nd to PAF? other? patient was uncertain. Eliquis currently on hold. If patient is stable from a renal standpoint and won't need replacement of his HD catheter would stop SC heparin and resume Eliquis 5mg BID. (17) Tobacco abuse: (18) Generalized rash: Plan: scabies? eczema? other? patient treated for scabies about 4-6 weeks ago treated 2x's despite such still with generalized rash this still could be scabies thus place on permethrin cream from head to upper thighs tonight jose 60mg daily for itching will consult dermatology for assistance, perhpas obtain specimen to confirm diagnosis. patient is already on contact derm Plan pt's daughter updated by phone 07/26/22 and 07/28/22 DVT proph - heparin 5000 BID SC until Eliquis is resumed PT, OT janet Admission and Anticipated Discharge Date Admission Date: July 24, 2022 Subjective 57 yo male reports no new symptoms.Continues to have pruritus. Review of Systems Review of Systems: All systems reviewed & are unremarkable except as noted in HPI & below Physical Exam Physical Exam: gen - resting comfortably in bed, NAD, obese; scratching his rash on torso/abdomen and upper legs mouth - MMM neck - no obvious JVD chest - HD catheter has been removed; dressing in place over former access site; just inferior to the clavicle is the small skin abscess - today it is less indurated, less red, and purulence is less heart - RRR, s1 s2, no murmur lungs - minimal rales bases; cta b/l otherwise abd - soft NT ND BS+ ext - left AKA; right leg wrapped in dressings from foot to just below right knee; foot pulses on right 2+ psych - a/o x 3 musculo - absent 1st/2nd toes on right foot skin - extensive erythematous, scaly rash with ? burrows over dorsum hands (but not the webspaces), arms, torso/abdominal wall, upper legs (extensive); genitalia not affected Results & Data Results & Data Vital Signs (Past 12 Hours) Vital Signs Temp Pulse Pulse Resp BP Pulse Ox O2 Del Method 07/29/22 18:52 36.8 C 66 19 128/62 97 Nasal Cannula 07/29/22 16:00 73 07/29/22 15:04 36.9 C 69 19 148/81 H 98 Nasal Cannula 07/29/22 11:05 36.8 C 72 15 134/75 94 Nasal Cannula O2 Flow Rate 07/29/22 18:52 2 07/29/22 16:00 07/29/22 15:04 2 07/29/22 11:05 2 PG Care Time/CCT Total # of Minutes Spent Total Time Spent with Patient: Total time spent is greater than 50% in coordination of care (as documented) at patient's floor/unit and/or counseling patient: Coding Level of Care Code 22686 SUB INP/OBS CARE 2/35MIN Diagnoses Hemodialysis catheter infection T82.7XXA Cardiac arrest I46.9 Pulmonary edema J81.0 Chronicity: acute End stage renal disease N18.6 Hypoglycemia E16.2 DM type 2 (diabetes mellitus, type 2) E11.9 HTN (hypertension) I10 Dyslipidemia E78.5 Morbid obesity with BMI of 40.0-44.9, adult E66.01; Z68.41 CAD (coronary artery disease) I25.10 CAD (coronary artery disease) of bypass graft I25.810 Above knee amputation of left lower extremity S78.112A Anemia D64.9 Anemia type: unspecified type Elevated troponin R77.8 Chronic systolic CHF (congestive heart failure) I50.22 Chronic anticoagulation Z79.01 Tobacco abuse Z72.0 Generalized rash R21 (3) Pulmonary edema Chronicity: acute Qualified Code(s): J81.0 - Acute pulmonary edema (13) Anemia Anemia type: unspecified type Qualified Code(s): D64.9 - Anemia, unspecified
[2022-07-29] MEDS: PERMETHRIN 5% CR 60 GM TUBE EXT SCH (22:12)
[2022-07-30] MEDS: PANTOprazole 40 MG TAB PO SCH (05:36)
[2022-07-30 07:22] LABS: Mean Corpuscular Hemoglobin 27.4 pg (25.0-34.0); Mean Corpuscular Volume 88.1 fL (80.0-100.0); Mean Platelet Volume 9.8 fL (9.4-12.4); Nucleated RBC # (auto) 0.02 K/uL (0-0.12); Nucleated RBC % (auto) 0.4 %; Platelet Count 211 K/uL (130-400); RDW Coefficient of Variation 17.2 % (11.5-14.5); RDW Standard Deviation 55.6 fL (36.4-46.3); Red Blood Count 3.29 M/uL (4.70-6.10); White Blood Count 5.56 K/ul (4.8-10.8)
[2022-07-30 07:54] LABS: Calcium 8.4 mg/dl (8.6-10.3); Creatinine Clr Calc Pharmacy 66.5 ml/min; Est GFR (African American) 46.7 ml/min; Est GFR (Non-African American) 40.3 ml/min; Potassium 4.7 mmol/L (3.5-5.1)
--- NOTE | 2022-07-30 08:46 | Nephrology Progress Note ---
Date of Service July 30, 2022 Assessment & Plan (1) Chronic kidney disease: Plan: * HD initiated 07/20 at [facility] by Dr. Estrella - JEWEL/CKD with potential for recovery. Patient had been dialyzing as outpatient at [facility] under the care of Dr. Nesbitt * Outpatient HD: [facility] TTS 4.5 hr F-180, Qb 400, Qd 800, 2K 2.5 Ca HCO3 35. EDW 138 kg. Heparin 2000 bolus and 1000 per hour. * Patient was last dialyzed 07/26/22 without complication * R IJ TCC removed 07/28/22 due to infection at the proximal insertion site. Site now looks clean. No purulence could be expressed this am * Cr stable at 1.8 following HD 07/26 * Remains nonoliguric. Will change from IV Furosemide to Bumetanide 1 mg po qAM * Will remove Olson catheter * Monitor I&O, PRP (2) Hemodialysis status: Plan: * Renal diet. Continue Fosrenol 50 mg TIDM for hyperphosphatemia. 1.2 L daily fluid restriction. * Patient remains stable off HD. Electrolyte balance is acceptable. Continue to monitor UO, PRP closely (3) Anemia: Plan: * Chronic. Outpatient Hgb 9.3 07/22/22. Maintained on Micera 75 q 2 weeks as outpatient * Iron saturation 16% w/ ferritin 299. Day #5 of 5 IV Venofer * Epogen 10,000 units provided 07/29/22 (4) Cardiac arrest: Plan: * 07/25/22 cardiac cath results reviewed. No lesions amenable to intervention Admission and Anticipated Discharge Date Admission Date: July 24, 2022 Subjective Mr. Yarbrough was evaluated in his hospital room this morning. He was last dialyzed 07/26/22 without complication. His R IJ TCC was removed 07/28/22 due to infection at the proximal insertion site. Mr. Yarbrough still has a Olson catheter in place. He denies fever, dyspnea or uremic symptoms. He notes that the swelling in his RLE has improved. His genital edema has resolved Review of Systems Constitutional: no fever Eyes: no problem reported Ear, Nose, Mouth, Throat: no problem reported Respiratory: no dyspnea Cardiovascular: no chest pain Gastrointestinal: no abdominal pain, no nausea, no vomiting and no diarrhea/loose stools Genitourinary: no dysuria, no hematuria or no flank pain Neurologic: no confusion Physical Exam Constitutional: + obese; not in distress Eyes: PERRL, conjunctivae normal, anicteric sclerae ENMT: external ear and nose normal, oropharynx normal Neck: + thick neck (R IJ TCC has been removed. No drainage from site ) Respiratory: normal respiratory effort, lungs clear to auscultation Cardiovascular: Rate/Rhythm: regular rate and regular rhythm Extremities: + edema (trace pretibial edema) Gastrointestinal (Abdomen): Inspection/Auscultation: normal bowel sounds Percussion/Palpation: abdomen soft; abdomen nontender and no guarding Neurologic: Speech / Cognition: normal speech and normal cognition Genitourinary: no scrotal swelling Results & Data Vital Signs (Past 12 Hours) Vital Signs Temp Pulse Pulse Resp BP Pulse Ox O2 Del Method 07/30/22 07:59 36.8 C 79 18 130/69 94 Nasal Cannula 07/30/22 03:47 36.6 C 74 16 142/79 H 94 Nasal Cannula 07/30/22 00:00 71 07/29/22 23:49 Nasal Cannula 07/29/22 23:32 36.7 C 69 18 150/94 H 97 Nasal Cannula O2 Flow Rate 07/30/22 07:59 2 07/30/22 03:47 2 07/30/22 00:00 07/29/22 23:49 2 07/29/22 23:32 2 Laboratory Results Laboratory Tests 07/30/22 07/30/22 07:00 07:00 WBC 5.56 Hgb 9.0 L Hct 29.0 L Plt Count 211 Sodium 137 Potassium 4.7 Chloride 103 Carbon Dioxide 31 BUN 40 H Creatinine 1.82 H Glucose 164 H PG Care Time/CCT Total # of Minutes Spent Total Time Spent with Patient: Total time spent is greater than 50% in coordination of care (as documented) at patient's floor/unit and/or counseling patient: Coding Level of Care Code 40774 SUB INP/OBS CARE 3/50MIN Diagnoses Chronic kidney disease N18.9 Hemodialysis status Z99.2 Anemia D64.9 Anemia type: unspecified type Cardiac arrest I46.9 (3) Anemia Anemia type: unspecified type Qualified Code(s): D64.9 - Anemia, unspecified
[2022-07-30] MEDS ORDERED: FUROSEMIDE 40 MG/4 ML VIAL IV SCH (09:00)
[2022-07-30] MEDS: INSULIN ASPART PER UNIT CHARGE SC SCH ×4 (09:20→20:45)
[2022-07-30] MEDS: CLOPIDOGREL BISULFATE 75 MG TAB PO SCH (09:21)
[2022-07-30] MEDS: VENLAFAXINE HCL XR 150 MG CAPXR PO SCH (09:21)
[2022-07-30] MEDS: FEXOFENADINE 60 MG TAB PO SCH (09:21)
[2022-07-30] MEDS: METOPROLOL SUCC 50MG EXT REL TAB PO SCH (09:21)
[2022-07-30] MEDS: TAMSULOSIN HCL 0.4 MG CAP PO SCH (09:21)
[2022-07-30] MEDS: SEVELAMER HCL 800 MG TABLET PO SCH ×3 (09:21→17:31)
[2022-07-30] MEDS: TRIAMCINOLONE ACET 0.1% CR 15 GM TUBE EXT SCH (09:22)
[2022-07-30] MEDS: HEPARIN SOD 5,000 UNIT/0.5 ML VIAL SQ SCH ×2 (09:22→20:45)
[2022-07-30] MEDS: BUMETANIDE 1 MG TAB PO SCH (09:42)
--- NOTE | 2022-07-30 12:23 | Hospitalist Progress Note ---
Date of Service July 30, 2022 Assessment & Plan (1) Hemodialysis catheter infection: Plan: The patient apparently was placed on levaquin as outpatient on 07/23/22 by his incubator tender when the portion of the dialysis catheter tract nearest the clavicle appeared erythematous. He received levaquin x 1 dose while in the hospital here. 07/26 - area of infection worse with visible purulence, subcu induration, and ?small abscess. Dr Clark [place] [facility] [place] and advised Tx to [facility] for catheter management. His HD catheter was placed at [facility] 3-4 weeks ago by report. Although patient had been accepted to [place] there were no beds. Vascular Surgery then available on 07/28 here and removed catheter 07/29; tip sent for culture. Continue Rocephin 2gm IV daily + daptomycin while awaiting culture BCxs NGTD MRSA + in the nares No need for catheter placement for HD again at this point as had some renal recovery (2) Cardiac arrest: Plan: Occurred while receiving hemodialysis 07/24/22 in [place]. Went unresponsive, and by report had ?PEA. s/p ~1 min of CPR. Received Epi and atropine by report as well. ROSC achieved after 1-2 minutes of CPR?? s/p heart cath 07/[address] Harshad Goyal to r/o ischemia as cause of his event. 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 RESENDEZ-LAD, however, widely patent on cath Troponin peaked only at 211 here ICD/pacer interrogation did not show any arrhythmia at the time of the event. Thus - did patient have intra-dialysis hypotension leading to syncope? Hypoglycemia? Other? Patient takes Eliquis chronically; thus, PE unlikely. Primary NECKTIE MAKER event unlikely. No seizure activity seen during the event or here. Although catheter infection is present, his blood cultures remain negative and thus septicemia not felt to have caused his event. Appreciate cardiology consult by Dr Goyal. (3) Pulmonary edema: Plan: 2nd to newly diagnosed advanced CKD/ESRD. Also with chronic systolic CHF but likely that the primary issue is his kidney disease not the heart. [facility] [place] needs. Typical schedule //Thu. He is s/p HD on 07/26 with 3 L of UF obtained. Was placed on lasix 40mg BID IV with robust UOP. Switch to po Bumex 1mg daily now Lg Olson Has had renal recovery and may not need ongoing HD-defer to Nephrology (4) End stage renal disease: Plan: Recently HD was instituted while hospitalized at [facility] about 3-4 weeks FURNACE FITTER Apparently had pre-existing CKD and then developed JEWEL by report. HD catheter placed and now removed Cont sevelemer 800mg TID w/ meals for now. Last HD session was 07/26. Quality Control Specialist continues to improve, down to 1.8 now Appears to have renal recovery. Perhaps we will be able to hold off on placing a new HD catheter and resuming dialysis. (5) Hypoglycemia: Plan: 2nd to long-acting insulin in the setting of ESRD and chronic systolic CHF. Cont to HOLD lantus. Novolog SSI. No further lows. No longer on D10W drip. Hba1c 7.6% Control adequate over last 48 hours. Patient had low BSG the AM of his cardiac event. Perhaps he was low during the cardiac event? (6) DM type 2 (diabetes mellitus, type 2): Plan: as above (7) HTN (hypertension): Plan: controlled continue bumex, Toprol XL (8) Dyslipidemia: Plan: statin on hold while on Dapto (9) Morbid obesity with BMI of 40.0-44.9, adult: Plan: BMI now <40 (10) CAD (coronary artery disease): Plan: s/p 3-vessel CABG in the past with known 2 vein grafts occluded. s/p heart cath 07/25/[address] Goyal. RESENDEZ-LAD patent. holding statin while on Dapto continue metoprolol Cont plavix (11) Above knee amputation of left lower extremity: Plan: also with amputation of 1st/2nd toes, right foot, in the past wound care ongoing (12) Anemia: Plan: Fe studies noted. B12/folate normal IV iron management by nephrology. (13) Elevated troponin: Plan: no evidence of ACS. see above re: heart cath results. myocardial demand ischemia 2nd to syncope in setting of ESRD? (14) Chronic systolic CHF (congestive heart failure): Plan: EF 45-50% 2nd to ischemic cardiomyopathy? other etiology? cont metoprolol succinate. cont bumex not on ACEi?ARB/ARNI due to renal failure cont volume control with dialysis. LVEDP was 35 on 07/25/22 heart cath. (15) Chronic anticoagulation: Plan: 2nd to PAF? other? patient was uncertain. Eliquis currently on hold. If patient is stable from a renal standpoint and won't need replacement of his HD catheter would stop SC heparin and resume Eliquis 5mg BID. (16) Tobacco abuse: Plan: counselor camp to quit (17) Generalized rash: Plan: scabies? eczema? other? patient treated for scabies about 4-6 weeks ago treated 2x's despite such still with generalized rash this still could be scabies thus terated with permethrin cream from head to upper thighs again during this admission without improvement yet continue jose 60mg daily for itching will consult dermatology for assistance, perhpas obtain specimen to confirm diagnosis-pending consult Plan DVT proph - heparin 5000 BID SC until Eliquis is resumed PT, OT evals Admission and Anticipated Discharge Date Admission Date: July 24, 2022 Subjective Still with itchy rash which has been present for about 2 months. No other complaints, wants to know when he will be discharged. Is eating and moving bowels, Olson remains in place Tele with NSR, rates 60-80s Physical Exam Constitutional: WD/WN, vitals as above + obese Respiratory: normal respiratory effort, lungs clear to auscultation Cardiovascular: Rate/Rhythm: regular rate and regular rhythm Heart Sounds: no murmur Extremities: + edema (RLE) Gastrointestinal (Abdomen): normal bowel sounds, soft, nontender, no hepatosplenomegaly Musculoskeletal: Extremities: + extremities abnormal to inspection (left AKA; right great/2nd/3rd toes amputated,kerlix wrap in place) Skin: + rash (ant torso/abd,all extremities mostly proximal w/ scaly macular rash) and + crusts (palms hands with scaly peeling skin) Psychiatric: A+Ox3, euthymic affect Genitourinary: Olson in place with clear yellow urine Results & Data Results & Data Vital Signs (Past 12 Hours) Vital Signs Temp Pulse Pulse Resp BP Pulse Ox O2 Del Method 07/30/22 12:01 74 18 164/84 H 97 Nasal Cannula 07/30/22 08:00 77 07/30/22 07:59 36.8 C 79 18 130/69 94 Nasal Cannula 07/30/22 03:47 36.6 C 74 16 142/79 H 94 Nasal Cannula O2 Flow Rate 07/30/22 12:01 2 07/30/22 08:00 07/30/22 07:59 2 07/30/22 03:47 2 Laboratory Results 07/30/22 07/30/22 07/30/22 Range/Units 11:39 07:25 07:00 WBC (4.8-10.8) K/ul RBC (4.70-6.10) M/uL Hgb (14.0-18.0) g/dl Hct (42.0-52.0) % MCV (80.0-100.0) fL MCH (25.0-34.0) pg MCHC (32.0-36.0) g/dL RDW Std Deviation (36.4-46.3) fL RDW Coeff of Desiree (11.5-14.5) % Plt Count (130-400) K/uL MPV (9.4-12.4) fL Absolute Nucleated RBC (0-0.12) K/uL Nucleated RBC % (auto) % Sodium 137 (136-145) mmol/L Potassium 4.7 (3.5-5.1) mmol/L Chloride 103 (98-107) mmol/L Carbon Dioxide 31 (21-32) mmol/L Anion Gap 3 (3-11) BUN 40 H (6-23) mg/dl Creatinine 1.82 H (0.6-1.4) mg/dl Est Cr Clr Drug Dosing 66.5 ml/min Est GFR ( Amer) 46.7 ml/min Est GFR (Non-Af Amer) 40.3 ml/min BUN/Creatinine Ratio 22.0 H (10-20) Glucose 164 H (70-99(Fasting)) mg/dl POC Glucose 223 H 187 H (70-99) mg/dl Calcium 8.4 L (8.6-10.3) mg/dl Total Creatine Kinase 102 (30-223) U/L 07/30/22 07/29/22 07/29/22 Range/Units 07:00 20:26 16:17 WBC 5.56 (4.8-10.8) K/ul RBC 3.29 L (4.70-6.10) M/uL Hgb 9.0 L (14.0-18.0) g/dl Hct 29.0 L (42.0-52.0) % MCV 88.1 (80.0-100.0) fL MCH 27.4 (25.0-34.0) pg MCHC 31.0 L (32.0-36.0) g/dL RDW Std Deviation 55.6 H (36.4-46.3) fL RDW Coeff of Desiree 17.2 H (11.5-14.5) % Plt Count 211 (130-400) K/uL MPV 9.8 (9.4-12.4) fL Absolute Nucleated RBC 0.02 (0-0.12) K/uL Nucleated RBC % (auto) 0.4 % Sodium (136-145) mmol/L Potassium (3.5-5.1) mmol/L Chloride (98-107) mmol/L Carbon Dioxide (21-32) mmol/L Anion Gap (3-11) BUN (6-23) mg/dl Creatinine (0.6-1.4) mg/dl Est Cr Clr Drug Dosing ml/min Est GFR ( Amer) ml/min Est GFR (Non-Af Amer) ml/min BUN/Creatinine Ratio (10-20) Glucose (70-99(Fasting)) mg/dl POC Glucose 140 H 158 H (70-99) mg/dl Calcium (8.6-10.3) mg/dl Total Creatine Kinase (30-223) U/L PG Care Time/CCT Total # of Minutes Spent Total Time Spent with Patient: Total time spent is greater than 50% in coordination of care (as documented) at patient's floor/unit and/or counseling patient: Coding Level of Care Code 18101 SUB INP/OBS CARE 2/35MIN Diagnoses Hemodialysis catheter infection T82.7XXA Cardiac arrest I46.9 Pulmonary edema J81.0 Chronicity: acute End stage renal disease N18.6 Hypoglycemia E16.2 DM type 2 (diabetes mellitus, type 2) E11.9 HTN (hypertension) I10 Dyslipidemia E78.5 Morbid obesity with BMI of 40.0-44.9, adult E66.01; Z68.41 CAD (coronary artery disease) I25.10 Above knee amputation of left lower extremity S78.112A Anemia D64.9 Anemia type: unspecified type Elevated troponin R77.8 Chronic systolic CHF (congestive heart failure) I50.22 Chronic anticoagulation Z79.01 Tobacco abuse Z72.0 Generalized rash R21 (3) Pulmonary edema Chronicity: acute Qualified Code(s): J81.0 - Acute pulmonary edema (12) Anemia Anemia type: unspecified type Qualified Code(s): D64.9 - Anemia, unspecified
[2022-07-30] MEDS: DAPTOmycin 425 MG in SYRINGE 0 ML IV SCH (12:36)
[2022-07-30] MEDS: cefTRIAXone SODIUM 2,000 MG in DEXTROSE 5% 50 ML IV SCH (12:36)
[2022-07-30] MEDS: IRON SUCROSE 200 MG in 0.9 % SODIUM CHLORIDE 100 ML IV SCH (12:37)
--- NOTE | 2022-07-30 12:50 | Dermatology Consultation ---
Date of Consultation July 30, 2022 Assessment & Plan (1) Eczematous dermatitis: Exam is most c/w nonspecific eczematous dermatitis. While scabetic infestation can present in this manner, he has been treated on 3 separate occasions (last on 07/28/2022) with permethrin 5% cream over the past 4-6 weeks without improvement, and the distribution of involvement is somewhat atypical for scabies. Given these recent treatments, skin scraping is not likely to be of utility. Recommend starting fluocinonide 0.05% ointment to areas of the chest/abdomen and extremities twice daily x 2 weeks. Order placed. Thanks for the consult. Call with questions. Present on Admission?: Yes History of Present Illness Reason for Consultation: Rash Requesting Physician: Richard Salcido MD Attending Physician: Giuliana Freire MD History of Present Illness Patient is a 57 y/o WM admitted to [facility] on 07/24/2022 after going into cardiac arrest while receiving hemodialysis (HD) in [place]. He has a complicated medical history, including ESRD on HD, CAD s/p CABG, CHF, HTN, hyperlipidemia, type 2 DM and obesity. I have been consulted for evaluation of a rash involving the chest/abdomen and extremities. He reports that this has been present for weeks. It is itchy, worse at night. He reports being treated for possible scabies with permethrin cream twice prior to his admission, but it was not effective at clearing the rash. He does not recall the time interval between the 2 treatments. He was retreated with permethrin 5% cream empirically on 07/28/2022. He denies any close contacts with similar eruption. He denies any prior history of eczema or psoriasis. He denies any sores in the mouth or irritation in the eyes. No other skin complaints today. Allergies Allergy/AdvReac Type Severity Reaction Status Date / Time No Known Allergies Allergy Mild * Verified 07/24/22 14:50 Home Medications Medication Instructions Recorded Confirmed Type Lactobacillus acidophilus-pectin 1 tab PO DAILY 07/24/22 07/24/22 History 30 mg-20 mg tablet acetaminophen 325 mg tablet 650 mg PO Q4H PRN PAIN/FEVER 07/24/22 07/24/22 History (Tylenol) apixaban 5 mg tablet (Eliquis) 5 mg PO BID 07/24/22 07/24/22 History atorvastatin 80 mg tablet 80 mg PO HS 07/24/22 07/24/22 History bumetanide 1 mg tablet 2 mg PO BID 07/24/22 07/24/22 History cholecalciferol (vitamin D3) 50 50 mcg PO DAILY 07/24/22 07/24/22 History mcg (2,000 unit) capsule (Vitamin D3) clopidogrel 75 mg tablet 75 mg PO DAILY 07/24/22 07/24/22 History fenofibrate 160 mg tablet 160 mg PO HS 07/24/22 07/24/22 History gabapentin 100 mg capsule 100 mg PO BID 07/24/22 07/24/22 History insulin aspart U-100 100 unit/mL See Rx Instructions .Route .COMPLEX 07/24/22 07/25/22 History (3 mL) subcutaneous pen (Novolog FlexPen U-100 Insulin aspart) insulin glargine 100 unit/mL (3 30 unit subcut BID 07/24/22 07/25/22 History mL) subcutaneous pen (Basaglar KwikPen U-100 Insulin) lanthanum 750 mg chewable tablet 750 mg PO TIDM 07/24/22 07/24/22 History (Fosrenol) levofloxacin 250 mg tablet 500 mg PO DAILY 07/24/22 07/24/22 History metoprolol succinate 100 mg 100 mg PO DAILY 07/24/22 07/24/22 History tablet,extended release 24 hr pantoprazole 40 mg tablet,delayed 40 mg PO DAILYBB 07/24/22 07/24/22 History release sertraline 50 mg tablet 50 mg PO HS 07/24/22 07/24/22 History tamsulosin 0.4 mg capsule 0.4 mg PO DAILY 07/24/22 07/24/22 History venlafaxine 150 mg 150 mg PO DAILY 07/24/22 07/24/22 History capsule,extended release 24 hr vitamin B complex-vitamin C-folic 1 tab PO DAILY 07/24/22 07/24/22 History acid 0.8 mg tablet (Nephro-Shaan) Patient History Medical History (Updated 07/30/22 @ 12:57 by Chalino Tamayo MD) Amputated great toe of left foot "due to osteomyelitis/diabetic ulcer" Dialysis patient DM type 2 (diabetes mellitus, type 2) Dyslipidemia Eczematous dermatitis End stage renal disease HTN (hypertension) Tobacco abuse Social History Smoking Status: Current every day smoker Cigarettes Per Day: 1/2 pack; Hx Alcohol Use: Yes Alcohol type: beer and hard liquor Hx Substance Use: No Preferred Language: Bengali Communication Ability: Effective Brewing Technician Required: No Beliefs That Will Affect Care: None Current Living Situation: Family Current Living Situation Comment: lives with daughter Other Information That Helps Us Care for You: No Feels Safe at Home: Yes Safety Concerns: Feels Safe At This Time Assistive Devices: Walker and Wheelchair Review of Systems Review of Systems: All systems reviewed & are unremarkable except as noted in HPI & below Physical Exam Physical Exam: General Appearance:Well developed and in no acute distress Psych:Alert and Appropriate Skin Type:2 Scalp/Hair:no abnormalities noted Face:no abnormalities noted Eyelids/Ocular Mucosa: no abnormalities noted Lips/Teeth/Gums: no abnormalities noted Neck: no abnormalities noted Right Lower Extremity:+lower leg/foot wrapped; +poorly-demarcated, erythematous, scaly thin plaques with mild yellow crusting on the thigh Left Lower Extremity:s/p AKA; +poorly-demarcated, erythematous, scaly thin plaques on the medial thigh Back: no abnormalities noted Buttocks/Groin/Genitalia: no abnormalities noted Right Upper Extremity: +poorly-demarcated, erythematous, scaly thin plaques on the dorsal forearm Left Upper Extremity:+poorly-demarcated, erythematous, scaly thin plaques on the dorsal hand, dorsal forearm Chest/Breast/Axillae:+poorly-demarcated, erythematous, scaly thin plaques on the left upper chest; axillary regions WNL Abdomen:+poorly-demarcated, erythematous, scaly thin plaques Results & Data Vital Signs (Past 12 Hours) Vital Signs Temp Pulse Pulse Resp BP Pulse Ox O2 Del Method 07/30/22 12:01 74 18 164/84 H 97 Nasal Cannula 07/30/22 08:00 77 07/30/22 07:59 36.8 C 79 18 130/69 94 Nasal Cannula 07/30/22 03:47 36.6 C 74 16 142/79 H 94 Nasal Cannula O2 Flow Rate 07/30/22 12:01 2 07/30/22 08:00 07/30/22 07:59 2 07/30/22 03:47 2 Laboratory Results 07/30/22 07/30/22 07/30/22 Range/Units 11:39 07:25 07:00 WBC (4.8-10.8) K/ul RBC (4.70-6.10) M/uL Hgb (14.0-18.0) g/dl Hct (42.0-52.0) % MCV (80.0-100.0) fL MCH (25.0-34.0) pg MCHC (32.0-36.0) g/dL RDW Std Deviation (36.4-46.3) fL RDW Coeff of Desiree (11.5-14.5) % Plt Count (130-400) K/uL MPV (9.4-12.4) fL Absolute Nucleated RBC (0-0.12) K/uL Nucleated RBC % (auto) % Sodium 137 (136-145) mmol/L Potassium 4.7 (3.5-5.1) mmol/L Chloride 103 (98-107) mmol/L Carbon Dioxide 31 (21-32) mmol/L Anion Gap 3 (3-11) BUN 40 H (6-23) mg/dl Creatinine 1.82 H (0.6-1.4) mg/dl Est Cr Clr Drug Dosing 66.5 ml/min Est GFR ( Amer) 46.7 ml/min Est GFR (Non-Af Amer) 40.3 ml/min BUN/Creatinine Ratio 22.0 H (10-20) Glucose 164 H (70-99(Fasting)) mg/dl POC Glucose 223 H 187 H (70-99) mg/dl Calcium 8.4 L (8.6-10.3) mg/dl Total Creatine Kinase 102 (30-223) U/L 07/30/22 07/29/22 07/29/22 Range/Units 07:00 20:26 16:17 WBC 5.56 (4.8-10.8) K/ul RBC 3.29 L (4.70-6.10) M/uL Hgb 9.0 L (14.0-18.0) g/dl Hct 29.0 L (42.0-52.0) % MCV 88.1 (80.0-100.0) fL MCH 27.4 (25.0-34.0) pg MCHC 31.0 L (32.0-36.0) g/dL RDW Std Deviation 55.6 H (36.4-46.3) fL RDW Coeff of Desiree 17.2 H (11.5-14.5) % Plt Count 211 (130-400) K/uL MPV 9.8 (9.4-12.4) fL Absolute Nucleated RBC 0.02 (0-0.12) K/uL Nucleated RBC % (auto) 0.4 % Sodium (136-145) mmol/L Potassium (3.5-5.1) mmol/L Chloride (98-107) mmol/L Carbon Dioxide (21-32) mmol/L Anion Gap (3-11) BUN (6-23) mg/dl Creatinine (0.6-1.4) mg/dl Est Cr Clr Drug Dosing ml/min Est GFR ( Amer) ml/min Est GFR (Non-Af Amer) ml/min BUN/Creatinine Ratio (10-20) Glucose (70-99(Fasting)) mg/dl POC Glucose 140 H 158 H (70-99) mg/dl Calcium (8.6-10.3) mg/dl Total Creatine Kinase (30-223) U/L Diagnostic Findings Imaging and microbiology reviewed in [facility]. Medications Administered MAR reviewed in [facility]. PG Care Time/CCT Total # of Minutes Spent Total Time Spent with Patient: Total time spent is greater than 50% in coordination of care (as documented) at patient's floor/unit and/or counseling patient: Coding Level of Care Code 91280 INT INP/OBS CARE 140MIN Diagnoses Eczematous dermatitis L30.9 Eczema type: unspecified (1) Eczematous dermatitis Eczema type: unspecified Qualified Code(s): L30.9 - Dermatitis, unspecified
[2022-07-30] MEDS: FLUOCINONIDE 0.05% OINT 15 GM TUBE EXT SCH (20:44)
[2022-07-30] MEDS: PERMETHRIN 5% CR 60 GM TUBE EXT SCH (20:46)
[2022-07-30] MEDS: SERTRALINE HCL 50 MG TABLET PO SCH (20:46)
[2022-07-31 06:02] LABS: Hematocrit (blood only) 31.4 % (42.0-52.0); Hemoglobin 9.5 g/dl (14.0-18.0); Mean Corpuscular Hemoglobin 27.5 pg (25.0-34.0); Mean Corpuscular Hgb Conc 30.3 g/dL (32.0-36.0); Mean Corpuscular Volume 90.8 fL (80.0-100.0); Mean Platelet Volume 9.7 fL (9.4-12.4); Platelet Count 225 K/uL (130-400); RDW Coefficient of Variation 16.9 % (11.5-14.5); RDW Standard Deviation 55.7 fL (36.4-46.3); Red Blood Count 3.46 M/uL (4.70-6.10); White Blood Count 5.24 K/ul (4.8-10.8)
[2022-07-31 06:13] LABS: Calcium 8.5 mg/dl (8.6-10.3); Creatinine Clr Calc Pharmacy 74.3 ml/min; Est GFR (Non-African American) 45.7 ml/min; Potassium 5.1 mmol/L (3.5-5.1)
[2022-07-31] MEDS: PANTOprazole 40 MG TAB PO SCH (06:35)
[2022-07-31] MEDS: TAMSULOSIN HCL 0.4 MG CAP PO SCH (08:18)
[2022-07-31] MEDS: INSULIN ASPART PER UNIT CHARGE SC SCH ×2 (08:18→13:01)
[2022-07-31] MEDS: VENLAFAXINE HCL XR 150 MG CAPXR PO SCH (08:19)
[2022-07-31] MEDS: HEPARIN SOD 5,000 UNIT/0.5 ML VIAL SQ SCH (08:19)
[2022-07-31] MEDS: METOPROLOL SUCC 50MG EXT REL TAB PO SCH (08:19)
[2022-07-31] MEDS: SEVELAMER HCL 800 MG TABLET PO SCH ×2 (08:19→13:08)
[2022-07-31] MEDS: BUMETANIDE 1 MG TAB PO SCH (08:19)
[2022-07-31] MEDS: FEXOFENADINE 60 MG TAB PO SCH (08:19)
[2022-07-31] MEDS: CLOPIDOGREL BISULFATE 75 MG TAB PO SCH (08:19)
[2022-07-31] MEDS: FLUOCINONIDE 0.05% OINT 15 GM TUBE EXT SCH (08:20)
--- NOTE | 2022-07-31 11:33 | Nephrology Progress Note ---
Date of Service July 31, 2022 Assessment & Plan (1) Chronic kidney disease: Plan: * HD initiated 07/20 at [facility] by Dr. Estrella - JEWEL/CKD with potential for recovery. Patient had been dialyzing as outpatient at [facility] under the care of Dr. Nesbitt * Patient was last dialyzed 07/26/22 without complication * R IJ TCC removed 07/28/22 due to infection at the proximal insertion site. Site has healed and infection resolved * Cr remains stable at 1.6-1.8 * Patient remains nonoliguric. Continue Bumetanide 1 mg po qAM * Electrolyte balance is acceptable * Monitor I&O, PRP * If discharge is anticipated, please have patient follow up with his primary Beam Machine Operator, Dr. Estrella ([place], [place]) within one week of hospital discharge (2) Anemia: Plan: * Hgb is trending up * Will order follow up iron studies (3) Cardiac arrest: Plan: * 07/25/22 cardiac cath results reviewed. No lesions amenable to intervention Admission and Anticipated Discharge Date Admission Date: July 24, 2022 Subjective Mr. Yarbrough was evaluated in his hospital room this morning. He was last dialyzed 07/26/22 without complication. His R IJ TCC was removed 07/28/22 due to infection at the proximal insertion site. Olson catheter was removed yesterday and he is voiding without difficulty. Mr. Yarbrough denies fever, dyspnea or uremic symptoms. He notes that the swelling in his RLE has improved. His genital edema has resolved Review of Systems Constitutional: no fever Eyes: no problem reported Ear, Nose, Mouth, Throat: no problem reported Respiratory: no dyspnea Cardiovascular: no chest pain Gastrointestinal: no abdominal pain, no nausea, no vomiting and no diarrhea/loose stools Genitourinary: no dysuria, no hematuria or no flank pain Neurologic: no confusion Physical Exam Constitutional: + obese; not in distress Eyes: PERRL, conjunctivae normal, anicteric sclerae ENMT: external ear and nose normal, oropharynx normal Neck: + thick neck Respiratory: normal respiratory effort, lungs clear to auscultation Cardiovascular: Rate/Rhythm: regular rate and regular rhythm Extremities: + edema (trace pretibial edema) Gastrointestinal (Abdomen): Inspection/Auscultation: normal bowel sounds Percussion/Palpation: abdomen soft; abdomen nontender and no guarding Neurologic: Speech / Cognition: normal speech and normal cognition Genitourinary: no scrotal swelling Results & Data Vital Signs (Past 12 Hours) Vital Signs Temp Pulse Pulse Resp BP Pulse Ox O2 Del Method 07/31/22 11:16 36.7 C 73 18 141/84 H 100 Nasal Cannula 07/31/22 08:00 72 07/31/22 07:04 36.7 C 74 18 152/82 H 97 Nasal Cannula 07/31/22 00:00 68 07/31/22 03:19 36.7 C 18 148/84 H 93 Nasal Cannula O2 Flow Rate 07/31/22 11:16 2 07/31/22 08:00 07/31/22 07:04 2 07/31/22 00:00 07/31/22 03:19 2 Laboratory Results Laboratory Tests 07/31/22 07/31/22 05:45 05:45 WBC 5.24 Hgb 9.5 L Hct 31.4 L Plt Count 225 Sodium 135 L Potassium 5.1 Chloride 102 Carbon Dioxide 29 BUN 41 H Creatinine 1.64 H Glucose 146 H PG Care Time/CCT Total # of Minutes Spent Total Time Spent with Patient: Total time spent is greater than 50% in coordination of care (as documented) at patient's floor/unit and/or counseling patient: Coding Level of Care Code 19566 SUB INP/OBS CARE 3/50MIN Diagnoses Chronic kidney disease N18.9 Anemia D64.9 Anemia type: unspecified type Cardiac arrest I46.9 (2) Anemia Anemia type: unspecified type Qualified Code(s): D64.9 - Anemia, unspecified
[2022-07-31 12:32] LABS: Iron 44 mcg/dl (35-175); Total Iron Binding Cap Calc 214 mcg/dl (250-450); Transferrin (FE) Percent Satur 21 % (20-50); Unsaturated Iron Binding Cap 170 mcg/dl (155-355)
[2022-07-31] MEDS: DAPTOmycin 425 MG in SYRINGE 0 ML IV SCH (14:27)
[2022-07-31] MEDS: cefTRIAXone SODIUM 2,000 MG in DEXTROSE 5% 50 ML IV SCH (14:27)
--- NOTE | 2022-07-31 16:41 | Discharge Summary ---
Date of Service July 31, 2022 Admission HPI Per Admitting Provider Jett is a 57-year-old male with a past medical history of CAD s/p triple bypass at [facility] with cardiac cath 2020 showing occlusions of grafts except for his RESENDEZ to LAD, ESRD due to diabetic nephropathy, poorly controlled DM with right first and second toe amputations and left above-knee amputation who presented after he became unresponsive 1 hour into dialysis. Patient reportedly did not have a pulse, EKG showed PEA with ST elevations in inferior leads and ST depressions in the lateral leads. VT/VF was not reported. Patient received 2 doses of epi, 2 doses of atropine with ROSC after 30-60 seconds. Wh en patient woke up he reported he remembers going to sleep, and then woke up surrounded by people. Denies chest pain, chest pressure, shortness of breath, difficulty breathing. Denies angina leading up to this event. Patient expressed to the ER that he preferred to be treated at [facility] where his prior care had been. He was pending transfer, however this was delayed due to bed availability and medical service was consulted for inpatient admission pending transfer. 2-hour troponin was ordered and increased to 211. Collateral was collected from [facility] cardiology and discussed with Dr. Watts noted patient had a EF of 20% at last echo, and cath results as noted above. Based on this recommended patient be evaluated for cardiac catheterization. This was discussed with Dr. Goyal as well. Unlikely that patient had a blockage to his remaining graft as he would likely not present with a minimal troponin elevation and asymptomatic once woken up, can proceed with cath but this may be done tomorrow. Discussed with patient who is agreeable to having a cath here tomorrow morning. Nephrology is consulted for ESRD management and dialysis around contrast load. Patient is a very poor historian of his medication does not know them by heart, medicines are reconciled by online portal and family at bedside. Patient denies recent fever, chills, sweats, lightheadedness, dizziness. Was sleepy during dialysis, but did not have chest pain leading up to his unresponsive episode. Does not remember receiving CPR. No past history of seizures. Denies cough. Med Rec: Tylenol as needed Benadryl as needed Methylprednisolone as needed for allergic reaction Nitro as needed for chest pain Mircera 75 mcg twice daily Atorvastatin 80 daily Basaglar Bumex 2 mg daily Vitamin D3 50 mcg daily Effexor 150 mg daily Eliquis twice daily 5 mg Fenofibrate 150 mg daily Flomax 0.4 mg daily Lanthanum 750 mg 3 times daily with meals Gabapentin 100 mg twice daily Lactobacillus probiotic NovoLog 15 units with lunch/supper Plavix 75 mg daily Protonix 40 mg daily Metoprolol succinate 100 mg daily Zoloft 50 mg nightly No aspirin per med list. Medical History: Reviewed Medications: Reviewed Surgical History: Reviewed Family history: Reviewed Allergies: Reviewed Social History: Reviewed, current tobacco use. Tobacco cessation recommended, cardiac and stroke risks of tobacco use discussed at bedside Code Status: Full Principal Diagnosis Infected HD catheter Cardiac arrest Eczematous rash Discharge Exam Constitutional WD/WN, vitals as above + obese Respiratory normal respiratory effort, lungs clear to auscultation Cardiovascular Rate/Rhythm: regular rate and regular rhythm Heart Sounds: no murmur Extremities: + edema (RLE) Gastrointestinal (Abdomen) normal bowel sounds, soft, nontender, no hepatosplenomegaly Musculoskeletal Extremities: + extremities abnormal to inspection (left AKA; right great/2nd/3rd toes amputated,kerlix wrap in place) Skin + rash (ant torso/abd,all extremities mostly proximal w/ scaly macular rash) and + crusts (palms hands with scaly peeling skin) right neck at previous catheter site with small lump with mild erythema, no drainage, not tender Psychiatric A+Ox3, euthymic affect Discharge Data Allergies Allergy/AdvReac Type Severity Reaction Status Date / Time No Known Allergies Allergy Mild * Verified 07/24/22 14:50 Consultations 07/24/22 16:42 ED Decision to Admit Stat 07/24/22 20:04 Consult Cardiology Routine 07/25/22 09:00 Consult Nephrology Routine 07/26/22 11:54 Consult General Surgery Routine 07/28/22 09:07 Consult Vascular Surgery Routine 07/29/22 20:44 Consult Dermatology Routine Procedures Performed Operation Date: 07/28/22 11:00 Actual Procedures p Removal of Perm Catheter(Right) - Adalberto Ruiz MD Ordered Studies 07/25/22 12:32 CL Cath Imgs for PACS use only Stat ECHO Hospital Course (1) Hemodialysis catheter infection: The patient apparently was placed on levaquin as outpatient on 07/23/22 by his tubular splitting machine tender when the portion of the dialysis catheter tract nearest the clavicle appeared erythematous. He received levaquin x 1 dose while in the hospital here. 07/26 - area of infection worse with visible purulence, subcu induration, and ?small abscess. Dr Clark from [facility] Gen Surg saw patient and advised Tx to [facility] for catheter management. His HD catheter was placed at [facility] 3-4 weeks ago by report. Although patient had been accepted to [place] there were no beds. Vascular Surgery then available on 07/28 here and removed catheter 07/28; tip sent for culture and was negative. Received Rocephin 2gm IV daily + daptomycin throughout hospitalization and for 3 days after catheter removed BCxs NGTD MRSA + in the nares No fevers, doin gwell, wound much improved No need for catheter placement for HD again at this point as had some renal recovery -finish out 4 more days of Augmentin and doxycycline for broad coverage as cultures negative (2) Cardiac arrest: Occurred while receiving hemodialysis 07/24/22 in [place]. Went unresponsive, and by report had ?PEA. s/p ~1 min of CPR. Received Epi and atropine by report as well. ROSC achieved after 1-2 minutes of CPR?? s/p heart cath 07/[address] Harshad Goyal to r/o ischemia as cause of his event. Has known vein graft occlusions x [address] Watts, his primary piping designer in [place]. RESENDEZ-LAD, however, widely patent on cath Troponin peaked only at 211 here ICD/pacer interrogation did not show any arrhythmia at the time of the event. Thus - did patient have intra-dialysis hypotension leading to syncope? Hypoglycemia? Other? Patient takes Eliquis chronically; thus, PE unlikely. Primary MARKETING PLANNING MANAGER event unlikely. No seizure activity seen during the event or here. Although catheter infection is present, his blood cultures remain negative and thus septicemia not felt to have caused his event. Appreciate cardiology consult by Dr Goyal. (3) Pulmonary edema: 2nd to newly diagnosed advanced CKD/ESRD. Also with chronic systolic CHF but likely that the primary issue is his kidney disease not the heart. [facility] Nephrology consulted for HD needs. Typical schedule //Sat. He is s/p HD on 07/26 with 3 L of UF obtained. Was placed on lasix 40mg BID IV with robust UOP. Switched to po Bumex 1mg daily Has had renal recovery and may not need ongoing HD-f/u as outpt with Nephro in 1 week (4) End stage renal disease: Recently HD was instituted while hospitalized at [facility] about 3-4 weeks DATA COMMUNICATIONS TECHNICIAN Apparently had pre-existing CKD and then developed JEWEL by report. HD catheter placed and now removed Cont sevelemer 800mg TID w/ meals for now. Last HD session was 07/26. Lockstitcher continues to improve, down to 1.6 now Appears to have renal recovery. Perhaps we will be able to hold off on placing a new HD catheter and resuming dialysis. (5) Hypoglycemia: 2nd to long-acting insulin in the setting of ESRD and chronic systolic CHF. held lantus. Novolog SSI. No further lows. No longer on D10W drip. Hba1c 7.6% Control adequate over last 48 hours. Patient had low BSG the AM of his cardiac event. Perhaps he was low during the cardiac event? -dc to home with significantly reduced dose of insulin--> Lantus 5 units bid (home dose 30 bid) and Novolog 5 units with each meal (previous dose was ) (6) DM type 2 (diabetes mellitus, type 2): as above (7) HTN (hypertension): controlled continue bumex, Toprol XL (8) Dyslipidemia: statin on hold while on Dapto but restart on discharge (9) Morbid obesity with BMI of 40.0-44.9, adult: BMI now <40 (10) CAD (coronary artery disease): s/p 3-vessel CABG in the past with known 2 vein grafts occluded. s/p heart cath 07/25/[address] Goyal. RESENDEZ-LAD patent. continue metoprolol, statin Cont plavix , ELiquis (11) Above knee amputation of left lower extremity: also with amputation of 1st/2nd toes, right foot, in the past wound care ongoing (12) Anemia: Fe studies noted. B12/folate normal IV iron management by nephrology.Was given IV Venofer here (13) Elevated troponin: no evidence of ACS. see above re: heart cath results. myocardial demand ischemia 2nd to syncope in setting of ESRD? (14) Chronic systolic CHF (congestive heart failure): EF 45-50% 2nd to ischemic cardiomyopathy? other etiology? cont metoprolol succinate. cont bumex not on ACEi/ARB/ARNI due to renal failure LVEDP was 35 on 07/25/22 heart cath. (15) Chronic anticoagulation: for PAF -continue Eliquis (16) Tobacco abuse: staff genetic counselor to quit (17) Generalized rash: patient treated for scabies about 4-6 weeks ago treated 2x's and a third time here with no improvement seen by DERM-dxd with eczema -start fluocinonide cream bid to rash x 2-3 weeks f/u DERM outpt if not improving (18) Paroxysmal atrial fibrillation: continue ELiquis in NSR throughout hospitalization here Plan DVT proph - heparin 5000 BID SC Dispo-stable for dc to home with home health Total Time Total Time Spent Total Time Spent (In Minutes): 40 min Discharge Plan Discharge Items Reason For Visit: CARDIAC ARREST Discharge Diagnosis: Cardiac arrest, infected dialysis catheter Eczema Activity: Resume your previous activity Non-emergency contact: Primary Care Provider and Extruding Department Supervisor Call non-emergency contact if: you have any medication questions, your symptoms worsen, you have a fever, your temperature is above 101, your wound has increased redness, your wound has increased drainage and your wound pain has increased Follow-up/Referrals: Patrick Mike [Primary Care Provider] - (Follow up within 1-2 weeks.) Chalino Tamayo MD [Physician] - (Follow up as needed for your rash) Diet: Carb Consistent or DM2 and Dialysis Renal Addtl Attending Provider Instructions: Please continue the two antibiotics for your catheter/wound infection for 4 more days. You will need to follow up with your Extruding Department Supervisor in [place] within 1 week. It appears that you do not need any further dialysis at this point. Please continue follow up at the wound care clinic for your leg and toes as before. If you do not have improvement in your rash with the steroid cream applied twice daily x 2-3 weeks, please follow up with the Publication Specialist. Pending Studies at Discharge: No Stand-Alone Forms: My [employer], Smoking Cessation Medications and DC Order Prescriptions: New fluocinonide 0.05 % Ointment 1 applic EXT BID 14 Days Qty: 30 0RF amoxicillin-pot clavulanate 500-125 mg tablet 1 tab PO BID Qty: 8 0RF doxycycline hyclate 100 mg tablet 100 mg PO BID Qty: 8 0RF Continued atorvastatin 80 mg tablet 80 mg PO HS metoprolol succinate 100 mg tablet extended release 24 hr 100 mg PO DAILY venlafaxine 150 mg capsule,extended release 24hr 150 mg PO DAILY clopidogrel 75 mg tablet 75 mg PO DAILY tamsulosin 0.4 mg capsule 0.4 mg PO DAILY pantoprazole 40 mg tablet,delayed release (DR/EC) 40 mg PO DAILYBB Nephro-Shaan 0.8 mg tablet 1 tab PO DAILY gabapentin 100 mg capsule 100 mg PO BID sertraline 50 mg tablet 50 mg PO HS Eliquis 5 mg tablet 5 mg PO BID acetaminophen [Tylenol] 325 mg Tablet 650 mg PO Q4H PRN (Reason: PAIN/FEVER) fenofibrate 160 mg tablet 160 mg PO HS lanthanum [Fosrenol] 750 mg Tablet,Chewable 750 mg PO TIDM Rx Instructions: administer with food; chew thoroughly before swallowing cholecalciferol (vitamin D3) [Vitamin D3] 50 mcg (2,000 unit) Capsule 50 mcg PO DAILY Lactobacillus acidoph-pectin 30-20 mg Tablet 1 tab PO DAILY Changed insulin glargine [Basaglar KwikPen U-100 Insulin] 100 unit/mL (3 mL) insulin pen 5 unit SUBCUT BID Qty: 15 0RF bumetanide 1 mg tablet 1 mg PO QAM Qty: 30 0RF insulin aspart U-100 [Novolog FlexPen U-100 Insulin] 100 unit/mL (3 mL) insulin pen 5 unit subcut .qac Qty: 15 0RF Discontinued levofloxacin 250 mg tablet 500 mg PO DAILY Rx Instructions: STARTED 07/23/22 FOR 10 DAYS, ENDS 08/02/22. Admission Data Admit Date/Time: 07/24/22 17:57 Attending Provider: Giuliana Freire Admit Provider: Jamar Eason Primary Care Provider: Patrick Mike Other Providers: Jamar Eason ; Fabien Goyal ; Carlos Childress ; Ronald Clark ; Adalberto Ruiz ; Mariana Juarez ; Chalino Tamayo Coding Level of Care Code 99682 INP/OBS DISCH >30 MIN Diagnoses Hemodialysis catheter infection T82.7XXA Cardiac arrest I46.9 Pulmonary edema J81.0 Chronicity: acute End stage renal disease N18.6 Hypoglycemia E16.2 DM type 2 (diabetes mellitus, type 2) E11.9 HTN (hypertension) I10 Dyslipidemia E78.5 Morbid obesity with BMI of 40.0-44.9, adult E66.01; Z68.41 CAD (coronary artery disease) I25.10 Above knee amputation of left lower extremity S78.112A Anemia D64.9 Anemia type: unspecified type Elevated troponin R77.8 Chronic systolic CHF (congestive heart failure) I50.22 Chronic anticoagulation Z79.01 Tobacco abuse Z72.0 Generalized rash R21 Paroxysmal atrial fibrillation I48.0
== END 2022-07-31 18:04 | disposition home health service (06) | DRG 286 ==
LOC: ED 11:03 → SUATTDRO 17:57 → 1E 17:57 → 2E 07-28 20:09